=== PATIENT | female | born 1935 | race Caucasian/White ===

== ENCOUNTER 2021-04-22 12:27 | Inpatient (IN) | payer OTHER ==
--- NOTE | 2021-04-22 13:33 | RAD REPORT ---
EXAM DESCRIPTION: RAD - Chest Single View - 04/22/2021 1:26 pm CLINICAL HISTORY: DYSPNEA COMPARISON: November 06 TECHNIQUE: AP portable chest image was obtained 04/22/2021 1:26 pm . FINDINGS: Lung volumes are low compared to the prior study. This accentuates a baseline prominent in terstitial pattern. No peripheral mass or consolidation suspected. No significant failure or volume o verload. Heart and vasculature are normal. No measurable pleural effusion and no pneumothorax. No acute bony abnormality seen. No acute aortic findings suspected. IMPRESSION: No acute cardiopulmonary process. Shallow inspiration exam accentuates the baseline interstitial pattern.
[2021-04-22 13:54] LABS: Protime INR 0.98
[2021-04-22 13:55] LABS: Absolute Lymphocytes (CBC) 0.8 K/uL (0.7-4.9); Basophils % 0.4 % (0-1.3); Lymphocytes % 8.6 % (15.3-44.8); MPV 7.3 fL (7.6-11.3); RBC Red Blood Cell Count 3.24 M/uL (3.86-4.86)
[2021-04-22 13:59] LABS: ALT/SGPT 19 U/L (12-78); AST/SGOT 18 U/L (15-37); Albumin 3.5 g/dL (3.4-5.0); Alkaline Phosphatase 73 U/L (45-117); BUN Blood Urea Nitrogen 14 mg/dL (7-18); Bicarbonate 27 mmol/L (21-32); Bilirubin Direct 0.2 mg/dL (0-0.2); Bilirubin Total 0.6 mg/dL (0.2-1.0); Glucose Level 118 mg/dL (74-106); NT PRO-BNP 328 pg/mL (<450); Potassium 3.7 mmol/L (3.5-5.1); Protein, Total 8.1 g/dL (6.4-8.2); Sodium Level 137 mmol/L (136-145); Troponin (Emerg Dept Use Only) < 0.02 ng/mL (0.0-0.045)
[2021-04-22] MEDS ORDERED: NA CHLORIDE 0.9% 500 ML ONE (15:08)
[2021-04-22] MEDS ORDERED: METHYLPREDNISOLONE 125 MG INJ ONE (15:27)
[2021-04-22] MEDS ORDERED: DIPHENHYDRAMINE 50 MG/ML VIAL ONE (15:28)
--- NOTE | 2021-04-22 16:03 | RAD REPORT ---
EXAM DESCRIPTION: CT - Chest For Pe Angio - 04/22/2021 3:39 pm CLINICAL HISTORY: Chest pain COMPARISON: November 2020 TECHNIQUE: Dynamically enhanced axial 3 mm thick images of the chest were obtained during administra tion of <100> mL Isovue 370 IV contrast. Coronal and oblique reconstruction images were generated and reviewed. Exam utilizes a protocol for optimal evaluation of pulmonary arterial tree. Maximum intensity projections 3D imaging was utilized All CT scans are performed using dose optimization technique as appropriate and may include automated exposure control or mA/KV adjustment according to patient size. FINDINGS: A pulmonary embolus is not seen. A thoracic aortic aneurysm is not noted. A pleural effusion is not seen. A pericardial effusion is not seen. 4 centimeter consolidation posterior left upper lobe. Mild left lower lobe alveolar opacities. Stable 18 millimeter ground-glass opacity. IMPRESSION: Negative for a pulmonary embolism. 4 centimeter consolidation left upper lobe with mild left lower lobe opacities probably pneumonia. Stable 18 millimeter ground-glass opacity left upper lobe probably inflammatory. Followup CT in 6 mon ths recommended for re-evaluation
--- NOTE | 2021-04-22 17:30 | ER ---
Nurse's Notes [facility] Name: Meenakshi Michele Age: 85 yrs Sex: Female : 1935 Arrival Date: 04/22/2021 Time: 12:30 Bed 9 Private MD: Florian Veloz C Diagnosis: Unspecified bacterial pneumonia;Hypoxia Presentation: 04/22 12:44 Chief complaint: Patient states: Sent by Dr. Veloz. Pt states "my left side has been aa5 hurting since last night when I try to take a deep breath". Pt denies cough, denies SOB. Coronavirus screen: At this time, the client does not indicate any symptoms associated with coronavirus-19. Ebola Screen: Patient negative for fever greater than or equal to 101.5 degrees Fahrenheit, and additional compatible Ebola Virus Disease symptoms. Initial Sepsis Screen: Does the patient meet any 2 criteria? No. Patient's initial sepsis screen is negative. Does the patient have a suspected source of infection? No. Patient's initial sepsis screen is negative. Risk Assessment: Do you want to hurt yourself or someone else? Patient reports no desire to harm self or others. Onset of symptoms was April 2021. 12:44 Method Of Arrival: Wheelchair aa5 12:44 Acuity: PONCHO 3 aa5 Triage Assessment: 19:30 General: Appears in no apparent distress. comfortable, well groomed, well developed. dc2 19:30 General: Behavior is calm, quiet. dc2 21:15 Pain: Denies pain. dc2 Historical: - Allergies: 12:46 Erythromycin; aa5 12:46 Iodine (Anaphylaxis); aa5 - PMHx: 12:46 Chron's Disease; aa5 - PSHx: 12:46 Cholecystectomy; Tubal ligation; Tonsillectomy; Adenoid excision; aa5 - Immunization history:: Client reports receiving the 2nd dose of the Covid vaccine. - Social history:: Smoking status: Patient reports the use of cigarette tobacco products, 4 cigarettes a day. Screenin:09 Abuse screen: Denies threats or abuse. Denies injuries from another. Nutritional es2 screening: No deficits noted. Tuberculosis screening: No symptoms or risk factors identified. Fall Risk None identified. Assessment: 18:08 Reassessment: When ambulating down [place] to bathroom, O2 Sats dropped to 88% on RA and ch5 HR increased to 116 b/m. Provider notified.. 19:30 Reassessment: Pt sitting up in bed with female visitor at side. Pt AAOx4, denies pain dc2 while resting, states has some discomfort when taking deep breaths. VSS. Awaiting on covid test results for admission. Some belongings placed in bag, pt request to stay in home gown until she knows more about her admission. Call light within reach, continue to monitor. Right inner forearm #22 flushed without problem. 21:09 Reassessment: Registration called for FLip room. Pt going to 209. dc2 Vital Signs: 12:44 BP 159 / 61; Pulse 84; Resp 16 S; Temp 98.0(TE); Pulse Ox 94% on R/A; Weight 82.1 kg aa5 (R); Height 5 ft. 4 in. (162.56 cm) (R); 17:08 BP 138 / 70; Pulse 74; Resp 16; Pulse Ox 95% on R/A; es2 18:08 BP 115 / 92; Pulse 98; Resp 20; Pulse Ox 93% on R/A; ch5 19:30 BP 153 / 71; Pulse 92; Resp 18; Temp 98.5; Pulse Ox 94% on R/A; Pain 0/10; dc2 21:10 BP 145 / 60; Pulse 93; Resp 20; Temp 97.8; Pulse Ox 95% on R/A; cc4 12:44 Body Mass Index 31.07 (82.10 kg, 162.56 cm) aa5 ED Course: 12:30 Patient arrived in ED. as 12:30 Florian Veloz MD is Private Physician. as 12:44 Arm band placed on. aa5 12:46 Triage completed. aa5 13:06 Segun Forbes PA is PHCP. jr8 13:06 Coleman Zapata MD is Attending Physician. jr8 13:11 Bhanu Coello, ALKA is Primary Nurse. ch5 13:25 XRAY Chest (1 view) In Process Unspecified. EDMS 15:30 No provider procedures requiring assistance completed. Inserted saline lock: 22 gauge es2 in right forearm, using aseptic technique. 15:39 CT Chest For PE Angio In Process Unspecified. EDMS 17:09 Bed in low position. Call light in reach. Side rails up X2. es2 17:30 Florian Veloz MD is Referral Physician. jr8 18:09 Florian Veloz MD is Hospitalizing Provider. jr8 20:04 Primary Nurse role handed off by Bhanu Coello RN tt3 20:14 Florecita Garrison RN is Primary Nurse. dc2 21:16 IV Flushed Converted IV to saline lock on right forearm dc2 Administered Medications: 15:15 Drug: Benadryl (diphenhydrAMINE) 25 mg Route: IVP; Site: right forearm; ch5 19:10 Follow up: Response: No adverse reaction dc2 15:16 Drug: NS 0.9% 500 ml Route: IV; Rate: bolus; Site: right forearm; ch5 21:29 Follow up: IV Status: Completed infusion; IV Intake: 500ml dc2 15:16 Drug: SOLU-Medrol (methylPrednisoLONE) 125 mg Route: IVP; Site: right forearm; ch5 19:10 Follow up: Response: No adverse reaction dc2 20:22 Drug: levofloxacin 500 mg Volume: 100 ml; Route: IVPB; Rate: 100 ml/hr; Infused Over: dc2 60 mins; Site: right forearm; Delivery: Primary tubing; 21:22 Follow up: IV Status: Completed infusion; IV Intake: 100ml dc2 Intake: 21:22 IV: 100ml; Total: 100ml. dc2 21:29 IV: 500ml; Total: 600ml. dc2 Outcome: 17:30 Discharge ordered by . jr8 18:11 Decision to Hospitalize by Provider. jr8 21:15 Admitted to Med/surg accompanied by tech, via stretcher, room 209, Report called to dc2 Day, states [facility] is taking the patient is unavailable and will call back for report. 21:17 Condition: stable dc2 21:17 Instructed on the need for admit, Demonstrated understanding of 21:28 Admitted to Tele accompanied by tech, room 209, Report called to ALKA Robles dc2 21:29 Patient left the ED. dc2 Signatures: Dispatcher [employer] EDAZ Yoana Kraft Audri, RN RN aa5 Segun Forbes PA PA jr8 Jay Trammell tt3 Bhanu Coello RN RN ch5 Keturah Mcghee RN RN cc4 Florecita Garrison, RN RN dc2 Louise Vergara RN RN es2 Corrections: (The following items were deleted from the chart) 15:16 14:47 NS 0.9% 500 ml IV at bolus in left antecubital ch5 ch5
--- NOTE | 2021-04-22 17:30 | EDPHYS ---
Physician Documentation [facility] Name: Meenakshi Michele Age: 85 yrs Sex: Female : 1935 Arrival Date: 04/22/2021 Time: 12:30 Bed 9 Private MD: Florian Veloz C ED Physician Coleman Zapata HPI: 04/22 15:50 This 85 yrs old Female presents to ER via Wheelchair with complaints of sent jr8 by Veloz r/o clot. 15:50 Onset: The symptoms/episode began/occurred acutely, last night. Associated signs and jr8 symptoms: Pertinent positives: chest pain, shortness of breath. Modifying factors: The patient symptoms are alleviated by nothing, the patient symptoms are aggravated by nothing. The patient has not experienced similar symptoms in the past. The patient has been recently seen by a physician:. Patient stated that she started to have left sided chest pain with breathing that started last night. Denies trauma. Denies having similar problems in the past including recent infection . Historical: - Allergies: 12:46 Erythromycin; aa5 12:46 Iodine (Anaphylaxis); aa5 - PMHx: 12:46 Chron's Disease; aa5 - PSHx: 12:46 Cholecystectomy; Tubal ligation; Tonsillectomy; Adenoid excision; aa5 - Immunization history:: Client reports receiving the 2nd dose of the Covid vaccine. - Social history:: Smoking status: Patient reports the use of cigarette tobacco products, 4 cigarettes a day. ROS: 15:50 Eyes: Negative for injury, pain, redness, and discharge, ENT: Negative for injury, jr8 pain, and discharge, Neck: Negative for injury, pain, and swelling, Abdomen/GI: Negative for abdominal pain, nausea, vomiting, diarrhea, and constipation, Back: Negative for injury and pain, MS/Extremity: Negative for injury and deformity, Skin: Negative for injury, rash, and discoloration, Neuro: Negative for headache, weakness, numbness, tingling, and seizure. 15:50 Cardiovascular: Positive for chest pain, Negative for edema, orthopnea, palpitations, paroxysmal nocturnal dyspnea. 15:50 Respiratory: Positive for shortness of breath. Exam: 15:50 Eyes: Pupils equal round and reactive to light, extra-ocular motions intact. Lids and jr8 lashes normal. Conjunctiva and sclera are non-icteric and not injected. Cornea within normal limits. Periorbital areas with no swelling, redness, or edema. ENT: Nares patent. No nasal discharge, no septal abnormalities noted. Tympanic membranes are normal and external auditory canals are clear. Oropharynx with no redness, swelling, or masses, exudates, or evidence of obstruction, uvula midline. Mucous membranes moist. Neck: Trachea midline, no thyromegaly or masses palpated, and no cervical lymphadenopathy. Supple, full range of motion without nuchal rigidity, or vertebral point tenderness. No Meningismus. Cardiovascular: Regular rate and rhythm with a normal S1 and S2. No gallops, murmurs, or rubs. Normal PMI, no JVD. No pulse deficits. Respiratory: Lungs have equal breath sounds bilaterally, clear to auscultation and percussion. No rales, rhonchi or wheezes noted. No increased work of breathing, no retractions or nasal flaring. Abdomen/GI: Soft, non-tender, with normal bowel sounds. No distension or tympany. No guarding or rebound. No evidence of tenderness throughout. Back: No spinal tenderness. No costovertebral tenderness. Full range of motion. Skin: Warm, dry with normal turgor. Normal color with no rashes, no lesions, and no evidence of cellulitis. MS/ Extremity: Pulses equal, no cyanosis. Neurovascular intact. Full, normal range of motion. Neuro: Awake and alert, GCS 15, oriented to person, place, time, and situation. Cranial nerves II-XII grossly intact. Motor strength 5/5 in all extremities. Sensory grossly intact. Vital Signs: 12:44 BP 159 / 61; Pulse 84; Resp 16 S; Temp 98.0(TE); Pulse Ox 94% on R/A; Weight 82.1 kg aa5 (R); Height 5 ft. 4 in. (162.56 cm) (R); 17:08 BP 138 / 70; Pulse 74; Resp 16; Pulse Ox 95% on R/A; es2 18:08 BP 115 / 92; Pulse 98; Resp 20; Pulse Ox 93% on R/A; ch5 19:30 BP 153 / 71; Pulse 92; Resp 18; Temp 98.5; Pulse Ox 94% on R/A; Pain 0/10; dc2 21:10 BP 145 / 60; Pulse 93; Resp 20; Temp 97.8; Pulse Ox 95% on R/A; cc4 12:44 Body Mass Index 31.07 (82.10 kg, 162.56 cm) aa5 MDM: 13:07 Patient medically screened. [facility] 17:27 Data reviewed: vital signs, nurses notes, lab test result(s), radiologic studies, CT jr8 scan, plain films. Data interpreted: Pulse oximetry: on room air is 95 %. Interpretation: normal. Counseling: I had a detailed discussion with the patient and/or guardian regarding: the historical points, exam findings, and any diagnostic results supporting the discharge/admit diagnosis, lab results, radiology results, the need for outpatient follow up, a family practitioner, to return to the emergency department if symptoms worsen or persist or if there are any questions or concerns that arise at home. ED course: Case with Dr. Veloz. And at rest 95% but with ambulation dropped to 88% room air. With increased work of breathing. Will put patient in for inpatient admission for pneumonia and hypoxia. Dr. Veloz good with this.. 04/22 13:06 Order name: Basic Metabolic Panel; Complete Time: 14:06 04/22 13:06 Order name: CBC with Diff; Complete Time: 18:03 04/22 13:06 Order name: LFT's; Complete Time: 14:06 04/22 13:06 Order name: Magnesium; Complete Time: 14:06 04/22 13:06 Order name: NT PRO-BNP; Complete Time: 14:06 04/22 13:06 Order name: PT-INR; Complete Time: 14:06 04/22 13:06 Order name: Troponin (emerg Dept Use Only); Complete Time: 14:06 04/22 13:06 Order name: XRAY Chest (1 view); Complete Time: 13:38 04/22 13:06 Order name: DD; Complete Time: 14:06 04/22 14:06 Order name: CT Chest For PE Angio; Complete Time: 16:16 04/22 17:47 Order name: CBC Smear Scan; Complete Time: 18:03 EDFL 04/22 19:02 Order name: SARS-COV-2 RT PCR; Complete Time: 20:18 EDMS 04/22 13:06 Order name: EKG; Complete Time: 13:07 [facility] 04/22 13:06 Order name: Cardiac monitoring [facility] 04/22 13:06 Order name: EKG - Nurse/Tech; Complete Time: 14:16 8 04/22 13:06 Order name: IV Saline Lock; Complete Time: 14:16 8 04/22 13:06 Order name: Labs collected and sent; Complete Time: 14:16 8 04/22 13:06 Order name: O2 Per Protocol; Complete Time: 14:15 8 04/22 13:06 Order name: O2 Sat Monitoring; Complete Time: 14:15 jr Administered Medications: 15:15 Drug: Benadryl (diphenhydrAMINE) 25 mg Route: IVP; Site: right forearm; ch5 19:10 Follow up: Response: No adverse reaction dc2 15:16 Drug: NS 0.9% 500 ml Route: IV; Rate: bolus; Site: right forearm; ch5 21:29 Follow up: IV Status: Completed infusion; IV Intake: 500ml dc2 15:16 Drug: SOLU-Medrol (methylPrednisoLONE) 125 mg Route: IVP; Site: right forearm; ch5 19:10 Follow up: Response: No adverse reaction dc2 20:22 Drug: levofloxacin 500 mg Volume: 100 ml; Route: IVPB; Rate: 100 ml/hr; Infused Over: dc2 60 mins; Site: right forearm; Delivery: Primary tubing; 21:22 Follow up: IV Status: Completed infusion; IV Intake: 100ml dc2 Disposition: 04/23 08:51 Co-signature as Attending Physician, Coleman Zapata MD I agree with the assessment and kdr plan of care. Disposition Summary: 04/22/21 18:11 Hospitalization Ordered Hospitalization Status: Inpatient Admission [facility] Provider: Florian Veloz Location: Telemetry/MedSurg (Inpatient)(04/22/21 18:11) jr8 Condition: Stable(04/22/21 18:11) jr8 Problem: new(04/22/21 18:11) jr8 Symptoms: are unchanged(04/22/21 18:11) jr8 Bed/Room Type: Standard [facility] Room Assignment: 209(04/22/21 21:00) Diagnosis - Unspecified bacterial pneumonia(04/22/21 18:11) jr8 - Hypoxia jr8 Forms: - Medication Reconciliation Form jr8 - SBAR form jr8 Signatures: Dispatcher [employer] EDFL Paty Cassidy RN RN Colemna Lam MD MD [facility] Veronica Lind RN RN aa5 Segun Forbes PA PA jr8 Bhanu Coello RN RN ch5 Florecita Garrison RN RN dc2 Corrections: (The following items were deleted from the chart) 04/22 18:09 17:30 Home jr8 jr8 18:09 17:30 new jr8 jr8 18:09 17:30 have improved jr8 jr8 18:09 17:30 Stable jr8 jr8 18:09 17:30 Unspecified bacterial pneumonia jr8 jr8 18:09 17:30 Pleurisy jr8 jr8 18:11 17:27 ED course: Case with Dr. Veloz. At this time wants me to put her on Augmentin 875 jr8 mg twice daily for the next 10 days. We will have her follow-up with him in clinic next week. Knows to come back if she were to worsening point time.. jr8 19:02 18:15 CORONAVIRUS+MR.LAB.BRZ ordered. EDFL EDMS 21:00 18:11 jr8
[2021-04-22 17:47] LABS: Platelet Estimate ADEQ; White Blood Cell Scan OK (OK)
[2021-04-22 17:48] LABS: Blood Morphology Comment NOTED (NOT SEEN); Poikilocytosis 1+
[2021-04-22] MEDS ORDERED: Levofloxacin500mg IV 500 MG/100 ML BAG IV ONE (20:46)
[2021-04-22] MEDS ORDERED: ALBUTEROL 2.5 MG/3 ML NEB SOL NEB PRN (21:24)
[2021-04-22] MEDS ORDERED: ONDANSETRON 4 MG/2 ML VIAL IV PRN (21:24)
[2021-04-22] MEDS ORDERED: IPRATROPIUM BROM 0.5MG/2.5ML NEB PRN (21:24)
[2021-04-22] MEDS ORDERED: ACETAMINOPHEN 500 MG TAB PO PRN (21:24)
[2021-04-22] MEDS ORDERED: ZOLPIDEM TARTRATE 5 MG TABLET PO PRN (21:43)
[2021-04-22] MEDS ORDERED: ENOXAPARIN 40 MG/0.4 ML SQ ONE (21:49)
[2021-04-22] MEDS: ROPINIROLE HCL 0.25 MG TAB PO SCH (22:00)
[2021-04-22] MEDS: FAMOTIDINE 20 MG TAB PO SCH (22:00)
[2021-04-22] MEDS: clonazePAM 0.5 MG TAB PO SCH (22:44)
[2021-04-22] MEDS: GABAPENTIN 300 MG CAP PO SCH (22:45)
[2021-04-23 06:03] LABS: Absolute Lymphocytes (CBC) 0.6 K/uL (0.7-4.9); Basophils % 0.1 % (0-1.3); Hematocrit 30.9 % (36.0-45.0); Lymphocytes % 8.2 % (15.3-44.8); MPV 6.9 fL (7.6-11.3); RBC Red Blood Cell Count 2.95 M/uL (3.86-4.86)
[2021-04-23 06:21] LABS: Potassium 3.7 mmol/L (3.5-5.1)
--- NOTE | 2021-04-23 07:16 | EKG ---
Test Date: 2021-04-22 Test Time: 13:45:00 Operations Officer: [place] MEASUREMENT RESULTS: Intervals: Rate: 85 WI: 194 QRSD: 88 QT: 368 QTc: 437 Brule: P: 58 WI: 194 QRS: -20 T: 51 INTERPRETIVE STATEMENTS: Normal sinus rhythm Normal ECG Compared to ECG 09/11/2006 18:40:26 No significant changes Electronically Signed On 04-23-21 07:15:14 CDT by Gustavo Pretty
--- NOTE | 2021-04-23 07:58 | HP ---
Date of Admission: 04/22/2021 Chief Complaint: Chest pain. History Of Present Illness: Ms. Michele is an 85-year-old very pleasant female patient, who came into office with her friend complaining of left-sided pleuritic type of chest pain. The patient reported that as of last night she started to have this pain, which is intermittent, located in the left infrascapular region and only time she notices this pain is when she takes deep breath. Denies any fall injury. No rash. No fever, chills. No cough, congestion, expectoration. No hemoptysis. No radiation of pain. After she was evaluated, she was asked to go to emergency room as I was concerned about possibility of either pulmonary embolism or pneumonia. After she was evaluated in ER, she was diagnosed as having pneumonia. There was no evidence of pulmonary embolism, and the patient had normal room air oxygen saturation around 95% or so, and plan was to discharge her to go home with outpatient antibiotic therapy, but with ambulation in emergency room, her oxygen saturation dropped down into low to mid 80s and the patient did not feel good at all at that time and I was contacted requesting admission to the hospital. Medications: Clonazepam 0.5 mg takes half tablet by mouth in the morning and at bedtime, estradiol 0.5 mg daily, famotidine 40 mg daily at bedtime, folic acid 1 mg daily, gabapentin 300 mg daily at bedtime, Lialda 4 tablets by mouth daily, methotrexate 2.5 mg, mirtazapine 45 mg daily at bedtime, pramipexole 1.5 mg 2 times a day, ropinirole 0.5 mg at bedtime, [place] Thyroid 60 mg daily, and zolpidem 5 mg takes half to 1 tablet daily at bedtime as needed. Allergies: TO CODEINE CAUSING FAINTING TYPE OF FEELING, ERYTHROMYCIN CAUSED HEPATITIS TYPE OF PROBLEM AND SHE WAS LISTED ALLERGIC TO IODINE AND SAYS MANY YEARS AGO SHE HAD SOME TESTING DONE WITH IODINE AND IT CAUSED THROAT SWELLING, BUT TODAY THE PATIENT HAD CT SCAN OF THE CHEST PER PE PROTOCOL AND SHE DID NOT HAVE ANY REACTION, SO WE SHOULD NOT LIST HER ALLERGIC TO IODINE ANYMORE. Review of Systems: Respiratory: As mentioned above. Cardiovascular: As mentioned above. All other systems reviewed and negative. Past Medical History: Restless leg syndrome, hypothyroidism, impaired fasting glucose, hypertension, mixed hyperlipidemia, diverticulosis, Crohn disease, gastroesophageal reflux disease, leg edema, iron deficiency anemia, insomnia, osteopenia. Past Surgical History: Significant for appendectomy, tonsillectomy, cataract surgery, correction of ptosis on both sides, cholecystectomy, tubal ligation, hysterectomy. Family History: Parents and both of them had coronary artery disease. Sister with allergy problems. Son has multiple sclerosis. Social History: Positive for smoking. Use of alcohol, occasional. Immunization History: The patient's first dose of COVID-19 vaccine was August 03, 2020 and second dose September 11, 2020. Physical Examination: Vital Signs: Blood pressure 145/68, pulse 81, respiratory rate 15, temperature 98.9, weight 181.2 pounds, height 64 inches. General: Awake, alert, oriented, not in distress. HEENT: Head atraumatic, normocephalic. Conjunctivae nonerythematous. Sclerae white. Mouth, no thrush or edema noted. Ears/Nose, no mass, lesion, discharge noted. Neck: Supple. No JVD, lymph nodes, bruit, thyromegaly noted. Lungs: Presence of crackles noted in both lung chaidez and lower 1/4 region. Heart: Normal heart sounds, no murmur or gallop. Abdomen: Soft, bowel sounds normal. No guarding, rigidity, tenderness, mass, hepatosplenomegaly, distention, or bruit noted. Extremities: No leg edema. No calf tenderness. Skin: No rash, ulcer, cellulitis. Lymphatics: No lymph node enlargement in neck, supraclavicular, infraclavicular region. Neuro: No focal neurological deficit. Chest: Unremarkable. External Genitalia: Deferred. Rectal: Deferred. Laboratory Data: White count 9.1, hemoglobin 11.4, platelets 271. D-dimer 553. Sodium 137, potassium 3.7, chloride 105, bicarb 27, BUN 14, creatinine 0.76, glucose 118. Liver function tests unremarkable. COVID-19 test negative. Chest x-ray, no acute cardiopulmonary changes. CAT scan of the chest per PE protocol, no evidence of pulmonary embolism, but presence of left upper lobe consolidation. Impression: 1. Pneumonia. 2. Acute respiratory failure with hypoxia. 3. Iron deficiency anemia. 4. Hypertension. 5. Pleurisy secondary to pneumonia. 6. Restless leg syndrome. 7. Hypothyroidism. 8. Impaired fasting glucose. 9. Mixed hyperlipidemia. 10. Gastroesophageal reflux disease. 11. Crohn disease. 12. Diverticulosis. 13. Insomnia. Plan: The patient will be admitted to hospital for further evaluation and management of this problem. The patient is appropriate for inpatient and is expected to spend 2 midnights in hospital. We will go ahead and continue home medications per order, start antibiotics per order. We will continue oxygen replacement therapy. We will see her tomorrow for followup. DVT prophylaxis will be given using Lovenox and we will give symptomatic treatment for pleuritic chest pain if needed, but it is expected to improve as pneumonia improves. Details of plan of treatment discussed with the patient. I will see her tomorrow for followup. LIYA/SIMONA Voice ID: [id number] MTDD
[2021-04-23] MEDS ORDERED: Levofloxacin 750mg IV 750 MG/150 ML BAG IV SCH (08:00)
[2021-04-23] MEDS: clonazePAM 0.5 MG TAB PO SCH ×2 (08:02→20:10)
[2021-04-23] MEDS: PRAMIPEXOLE 1 MG TAB PO SCH ×3 (08:02→20:09)
[2021-04-23] MEDS ORDERED: clonazePAM 0.5 MG TAB PO SCH (09:00)
[2021-04-23] MEDS: THYROID 30 MG TAB PO SCH (10:51)
[2021-04-23] MEDS ORDERED: ENOXAPARIN 40 MG/0.4 ML SQ SCH (17:00)
[2021-04-23] MEDS: FAMOTIDINE 20 MG TAB PO SCH (20:08)
[2021-04-23] MEDS: GABAPENTIN 300 MG CAP PO SCH (20:09)
[2021-04-23] MEDS: ROPINIROLE HCL 0.25 MG TAB PO SCH (20:13)
[2021-04-24] MEDS: THYROID 30 MG TAB PO SCH (05:05)
[2021-04-24 05:19] VITALS: BMI 31.5
[2021-04-24 08:08] VITALS: BP 145/71; TEMP 98
[2021-04-24 08:52] VITALS: O2SAT 93
--- NOTE | 2021-04-24 08:59 | PN ---
Date of Progress Note: 04/23/2021 Subjective: The patient was seen this morning for followup. She is feeling overall better. Her pleuritic chest pain is better compared to yesterday. No new complaints or problems reported. Objective: Vital Signs: Reviewed. HEENT: Examination unremarkable. Lungs: Bilateral good equal air entry. Presence of basal rales better than yesterday, not in any respiratory distress. Heart: Sounds normal. Abdomen: Soft. Bowel sounds normal. No guarding, rigidity, tenderness, or distention. Extremities: No leg edema. Laboratory Data: White count 7.7, hemoglobin 10.5, platelets 276. Sodium 138, potassium 3.7, chloride 106, bicarb 26, BUN 18, creatinine 0.82, glucose 195. Impression: 1. Pneumonia. 2. Pleurisy. 3. Anemia. 4. Restless leg syndrome. Plan: We will go ahead and continue current antibiotic. Continue DVT prophylaxis. We will ambulate the patient today as tolerated. I will see her tomorrow and depending on the condition, we will decide if it is possible to discharge home tomorrow or not. The patient's son called office and wanted some updates and details were discussed with him as well. LIYA/SIMONA Voice ID: [id number] Report ID: [id number] RYLIE
--- NOTE | 2021-04-24 20:20 | DS ---
Date of Discharge: 04/24/2021 Disposition: Discharged to go home. Physical Examination: HEENT: Unremarkable. Lungs: Clear to auscultation. Heart: Sounds normal. Abdomen: Soft. Bowel sounds normal. No guarding, rigidity, tenderness, or distention. Extremities: No leg edema. Laboratory Data: Upon admission; white count was 9.1, hemoglobin was 11.4, platelets 271. Repeat wh ite count yesterday was 7.7, hemoglobin was 10.5, and platelet count 276. Chemistry upon admission; sodium 137, potassium 3.7, chloride 105, bicarb 27, BUN 14, creatinine 0.76, glucose 118. Liver func tion tests unremarkable. Hemoglobin A1c 5.3 done yesterday and yesterday's glucose was 195. Hospital Course: This is an 85-year-old pleasant female patient, admitted to the hospital with pleur itic chest pain. Please see dictated H and P for more information. The patient came into office wit h this pleuritic chest pain and she was asked to go to the emergency room for further evaluation. Fu rther evaluation including chest x-ray and CAT scan of the chest per PE protocol done in emergency ro om were negative for pulmonary embolism, but it did show evidence of pneumonia. The patient became h ypoxic with ambulation in emergency room, so she was admitted to the hospital. After her admission t o the hospital, she was started on antibiotic and her hypoxia resolved with ambulation. She did not have any trouble with hypoxia. She is feeling much better. Her pleuritic chest pain has almost comp letely resolved. The patient was discharged to go home in stable condition. Final Diagnoses: 1.Pneumonia. 2.Acute respiratory failure with hypoxia. 3.Pleurisy. 4.Iron deficiency anemia. 5.Hypertension. 6.Restless leg syndrome. 7.Hypothyroidism. 8.Impaired fasting glucose. 9.Mixed hyperlipidemia. 10.Gastroesophageal reflux disease. 11.Crohn disease. 12.Diverticulosis. 13.Insomnia. Discharge Medications And Instructions: 1.Continue all prior home medications. 2.Take antibiotic, Levaquin 500 mg daily for 1 week and prescription was sent to her pharmacy. 3.Follow up at my office next week on Thursday which is 04/29/2021 at 10 a.m. LIYA/MODL Voice ID: [id number] Report ID: [id number]
[2021-04-25] MEDS ORDERED: levoFLOXacin 750 MG TAB PO SCH (09:00)
== END 2021-04-24 09:23 | disposition home or self-care (01) | DRG 193 ==
LOC: ER 12:27 → ERHOLD 19:37 → 2ND 21:10
PROVIDERS: ADMIT Internal Medicine; ATTEND Internal Medicine
DX: J18.9 Pneumonia, unspecified organism (principal); J96.01 Acute respiratory failure with hypoxia; K50.90 Crohn's disease, unspecified, without complications; D50.9 Iron deficiency anemia, unspecified; I10 Essential (primary) hypertension; G25.81 Restless legs syndrome; E03.9 Hypothyroidism, unspecified; R73.01 Impaired fasting glucose; E78.2 Mixed hyperlipidemia; K21.9 Gastro-esophageal reflux disease without esophagitis; K57.90 Diverticulosis of intestine, part unspecified, without perforation or abscess without bleeding; G47.00 Insomnia, unspecified; Z20.822 Contact with and (suspected) exposure to COVID-19
CPT/HCPCS: 36415; 71045; 71275; 80048; 80076; 83036; 83735; 83880; 84484; 85025; 85379; 85610; 93005; 94760; 96361; 96365; 96375; 97161; 99285; J1200; J1650; J2930; J7040; Q9967; U0003

== ENCOUNTER 2021-05-02 19:16 | Observation (INO) | payer OTHER ==
[2021-05-02 19:27] LABS: Urine Blood Negative (Negative); Urine Glucose Negative (Negative); Urine Protein Negative (Negative); Urine Specific Gravity 1.025 (1.005-1.030); Urine pH 6.5 (5.0-7.0)
[2021-05-02] MEDS ORDERED: MAGNES/ALUMIN/SIMET 30ML UCUP ONE (19:58)
[2021-05-02] MEDS ORDERED: LIDOCAINE VISCOUS 2% SOLN 15 ML UDC ONE (19:58)
--- NOTE | 2021-05-02 20:06 | RAD REPORT ---
EXAM DESCRIPTION: CTChest Abd Pelvis Wo Con - 05/02/2021 7:50 pm CLINICAL HISTORY: abd pain, recent pneumonia COMPARISON: Chest For Pe Angio dated 04/22/2021; Thorax Wo Con dated 11/20/2020 TECHNIQUE: CT of the chest, abdomen, and pelvis was performed. All CT scans are performed using dose optimization technique as appropriate and may include automated exposure control or mA/KV adjustment according to patient size. FINDINGS: Thorax: Chest Wall: No abnormal mass Lungs: Improved aeration of left upper lung with near resolution of the consolidative process noted o n the prior CT. Nineteen grant ground-glass opacity anteriorly in the left upper lobe is similar. Pleura: No effusions or pneumothorax. Ayanna/Mediastinum: No lymphadenopathy. Aorta/Pulmonary Arteries: Unremarkable Heart: Normal size. Coronary artery calcifications. Mitral annular calcifications. Abdomen/Pelvis: Liver: No acute abnormality or suspicious lesions. Biliary: Cholecystectomy Stomach: Distended stomach which is otherwise unremarkable. Duodenum: No significant focal abnormality. Pancreas: No significant abnormality. Spleen: No significant abnormality. Adrenal: No suspicious lesions. Kidney/ureter: No hydronephrosis. No renal calculi. Insert kidneys Retroperitoneum: No retroperitoneal adenopathy. Vascular: No aneurysm. Bowel: Irregular colonic wall thickening at the splenic flexure with some prominent mesenteric lymph nodes. No bowel obstruction. Moderate colonic stool.. Peritoneum: No ascites or free air. Bladder: Grossly unremarkable. Reproductive: No adnexal masses. Hysterectomy Bones: No acute fracture. 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 Other: n/a IMPRESSION: 1. Irregular colonic wall thickening at the splenic flexure could represent a short-segm ent colitis however it could also represent an underlying colonic neoplasm. Recommend short-term foll ow-up colonoscopy depending on the clinical suspicion. 2. Improved aeration of the dominant left upper lobe consolidative opacity. There is still a wedge-sh aped ground-glass opacity in the anterior aspect of the left upper lobe that is unchanged and for whi ch a 12 month follow-up chest CT is recommended.
[2021-05-02 20:31] LABS: ALT/SGPT 62 U/L (12-78); AST/SGOT 138 U/L (15-37); Albumin 3.2 g/dL (3.4-5.0); Alkaline Phosphatase 145 U/L (45-117); BUN Blood Urea Nitrogen 21 mg/dL (7-18); Bicarbonate 29 mmol/L (21-32); Bilirubin Direct 0.1 mg/dL (0-0.2); Bilirubin Total 0.3 mg/dL (0.2-1.0); Glucose Level 128 mg/dL (74-106); Lipase 68 U/L (73-393); Potassium 3.8 mmol/L (3.5-5.1); Sodium Level 141 mmol/L (136-145); Troponin (Emerg Dept Use Only) < 0.02 ng/mL (0.0-0.045)
[2021-05-02 20:45] LABS: Absolute Lymphocytes (CBC) 1.5 K/uL (0.7-4.9); Basophils % 0.3 % (0-1.3); Hematocrit 33.4 % (36.0-45.0); Lymphocytes % 22.2 % (15.3-44.8); MPV 6.6 fL (7.6-11.3); RBC Red Blood Cell Count 3.22 M/uL (3.86-4.86)
--- NOTE | 2021-05-02 22:21 | ER ---
Nurse's Notes [facility] Name: Meenakshi Michele Age: 85 yrs Sex: Female : 1935 Arrival Date: 05/02/2021 Time: 19:18 Bed 18 Private MD: Diagnosis: Infectious gastroenteritis and colitis, unspecified;Abdominal pain, unspecified Presentation: 05/02 19:19 Chief complaint: Patient states: abdominal pain/ epigastric pain that radiates to kc4 bilateral sides. started after eating dinner. No N/V/ D noted. Hx Crohns disease. Coronavirus screen: Vaccine status: Patient reports receiving the 2nd dose of the covid vaccine. Patient reports receiving the 1st dose of the Covid vaccine. Ebola Screen: Patient negative for fever greater than or equal to 101.5 degrees Fahrenheit, and additional compatible Ebola Virus Disease symptoms Patient denies exposure to infectious person. Patient denies travel to an Ebola-affected area in the 21 days before illness onset. Initial Sepsis Screen: Does the patient meet any 2 criteria? No. Patient's initial sepsis screen is negative. Does the patient have a suspected source of infection? No. Patient's initial sepsis screen is negative. Risk Assessment: Do you want to hurt yourself or someone else? Patient reports no desire to harm self or others. Onset of symptoms was May 02, 2021 at 18:15. 19:19 Method Of Arrival: EMS [facility] 19:19 Acuity: PONCHO 3 kc4 Triage Assessment: 19:25 General: Appears in no apparent distress. obese, well groomed, Behavior is calm, kc4 cooperative, appropriate for age. Pain: Complains of pain in epigastric pain Pain radiates to bilateral ribs Pain currently is 2 out of 10 on a pain scale. at worst was 10 out of 10 on a pain scale. level that patient reports is acceptable is 0 out of 10 on a pain scale. Quality of pain is described as tightness Pain began suddenly, 2 hours ago. Is intermittent. EENT: No deficits noted. No signs and/or symptoms were reported regarding the EENT system. Neuro: No deficits noted. Cardiovascular: No deficits noted. Respiratory: No deficits noted. GI: No deficits noted. No signs and/or symptoms were reported involving the gastrointestinal system. : No deficits noted. No signs and/or symptoms were reported regarding the genitourinary system. Derm: No deficits noted. No signs and/or symptoms reported regarding the dermatologic system. Historical: - Allergies: 19:25 Erythromycin; kc4 19:25 Iodine (Anaphylaxis); kc4 - PMHx: 19:25 chron's disease; kc4 - PSHx: 19:25 Adenoid excision; Tonsillectomy; Cholecystectomy; tubal ligation; kc4 - Immunization history:: Adult Immunizations up to date, Last tetanus immunization: up to date Pneumococcal vaccine is up to date, Flu vaccine is up to date. - Social history:: Smoking status: Patient reports the use of cigarette tobacco products, denies chronic smoking, but will smoke occasionally. - Family history:: not pertinent. - Hospitalizations: : No recent hospitalization is reported. Screenin:33 Abuse screen: Denies threats or abuse. Denies injuries from another. Nutritional kc4 screening: No deficits noted. On no prescribed diet Difficulty chewing/swallowing? No. Tuberculosis screening: No symptoms or risk factors identified. Never had TB. Possible symptoms: None Risk factors: None. Fall Risk None identified. No fall in past 12 months (0 pts). No secondary diagnosis (0 pts). IV access (20 points). Ambulatory Aid- None/Bed Rest/Nurse Assist (0 pts). Gait- Normal/Bed Rest/Wheelchair (0 pts) Mental Status- Oriented to own ability (0 pts). Total Nicolas Fall Scale indicates No Risk (0-24 pts). Assessment: 20:12 Reassessment: No changes from previously documented assessment. Patient and/or family kc4 updated on plan of care and expected duration. Pain level reassessed. Patient is alert, oriented x 3, equal unlabored respirations, skin warm/dry/pink. Patient denies pain at this time. Patient states feeling better. Patient states symptoms have improved. Vital Signs: 19:19 BP 166 / 73; Pulse 88; Resp 20; Temp 98.8(O); Pulse Ox 100% on R/A; Weight 81.65 kg; kc4 Height 5 ft. 4 in. (162.56 cm); Pain 2/10; 20:14 BP 150 / 78; Pulse 80; Resp 20; Temp 98.8; Pulse Ox 98% on R/A; Pain 0/10; kc4 21:46 BP 123 / 64; Pulse 90; Resp 18; Temp 98.8(O); Pulse Ox 100% on R/A; Pain 0/10; kc4 23:02 BP 136 / 67; Pulse 92; Resp 16; Temp 98.0; Pulse Ox 100% on R/A; Pain 0/10; kc4 05/03 01:20 BP 143 / 72; Pulse 82; Resp 18; Temp 98.8(O); Pulse Ox 100% on R/A; kc4 05/02 19:19 Body Mass Index 30.90 (81.65 kg, 162.56 cm) kc4 ED Course: 05/02 19:18 Patient arrived in ED. rn 19:18 Ebenezer Leija MD is Attending Physician. rn 19:19 Loni Burton is Primary Nurse. kc4 19:20 No provider procedures requiring assistance completed. Inserted saline lock: 20 gauge kc4 in right antecubital area, using aseptic technique. 19:25 Triage completed. kc4 19:25 Arm band placed on right wrist. kc4 19:42 Basic Metabolic Panel Sent. kc4 19:42 Troponin (emerg Dept Use Only) Sent. kc4 19:42 Basic Metabolic Panel Sent. kc4 19:42 CBC with Diff Sent. kc4 19:42 Hepatic Function Sent. kc4 19:42 Lipase Sent. kc4 19:50 CT Chest Abdomen Pelvis W/O Contrast In Process Unspecified. EDMS 20:12 Troponin (emerg Dept Use Only) Sent. kc4 20:12 Basic Metabolic Panel Sent. kc4 20:12 CBC with Diff Sent. kc4 20:12 Hepatic Function Sent. kc4 20:12 Lipase Sent. kc4 21:45 Triage completed. kc4 22:20 Jadon Reddy MD is Hospitalizing Provider. rn 05/03 01:10 Florian Veloz MD is Hospitalizing Provider. rn 01:34 Patient has correct armband on for positive identification. Placed in gown. Bed in low kc4 position. Call light in reach. Side rails up X 1. Report given to barry RUCKER. 01:49 Patient admitted, IV remains in place. kc4 Administered Medications: 05/02 19:37 Drug: GI Cocktail without - (Maalox Suspension 30 ml, Lidocaine Liquid 2 % 15 vg1 ml) Route: PO; 20:12 Follow up: Response: No adverse reaction; Marked relief of symptoms kc4 22:54 Drug: Rocephin (cefTRIAXone) 1 grams Route: IV; Rate: calculated rate; Site: right 4 antecubital; 23:02 Follow up: Response: No adverse reaction kc4 05/03 01:21 Follow up: IV Status: Completed infusion kc4 05/02 22:54 Drug: Flagyl (metroNIDAZOLE) 500 mg Volume: 100 ml; Route: IVPB; Rate: 200 ml/hr; kc4 Infused Over: 30 mins; Site: right antecubital; 23:12 Follow up: IV Status: Completed infusion kc4 05/03 01:21 Follow up: IV Status: Completed infusion kc4 Output: 05/02 22:35 Urine: 275ml (Voided); Total: 275ml. kc4 05/03 00:30 Urine: 500ml (Voided); Total: 775ml. kc4 Outcome: 05/02 22:21 Decision to Hospitalize by Provider. rn 05/03 01:41 Condition: stable kc4 01:48 Admitted to Med/surg accompanied by tech, via wheelchair, room 428, with chart, Report kc4 called to Barry RN 01:48 Instructed on the need for admit. 01:50 Patient left the ED. kc4 Signatures: Dispatcher [employer] Ebenezer Layne MD MD rn Garcia, Victoria, RN RN vg1 Chuman, Kourtney kc4
--- NOTE | 2021-05-02 22:21 | EDPHYS ---
Physician Documentation [facility] Name: Meenakshi Michele Age: 85 yrs Sex: Female : 1935 Arrival Date: 05/02/2021 Time: 19:18 Bed 18 Private MD: ED Physician Ebenezer Leija HPI: 05/02 19:29 This 85 yrs old Female presents to ER via EMS with complaints of upper abd rn pain. 19:29 The patient presents with abdominal pain in the epigastric area, in the right upper rn quadrant, in the left upper quadrant. Onset: The symptoms/episode began/occurred 1 hour(s) ago. The symptoms do not radiate. Associated signs and symptoms: Pertinent negatives: nausea and vomiting, anorexia, blood in stools, chest pain, constipation, diarrhea, dysuria, fever, shortness of breath, vomiting, vomiting blood. The symptoms are described as tightness, "bandlike". Modifying factors: The symptoms are alleviated by nothing, the symptoms are aggravated by nothing. Severity of pain: At its worst the pain was moderate in the emergency department the pain has resolved. The patient has not experienced similar symptoms in the past. The patient has not recently seen a physician. Pt reports eating at halfway, while sitting at table felt bandlike sensation to upper abdomen, slowly improving on its own and now practically gone. Just finished abx for pneumonia with recent hospitalization, and also has Crohns' disease, but feels like this pain is different. Also reports intermittent acid reflux and heartburn. No fever. No trauma. [place] fine prior to episode. . Historical: - Allergies: 19:25 Erythromycin; kc4 19:25 Iodine (Anaphylaxis); kc4 - PMHx: 19:25 chron's disease; kc4 - PSHx: 19:25 Adenoid excision; Tonsillectomy; Cholecystectomy; tubal ligation; kc4 - Immunization history:: Adult Immunizations up to date, Last tetanus immunization: up to date Pneumococcal vaccine is up to date, Flu vaccine is up to date. - Social history:: Smoking status: Patient reports the use of cigarette tobacco products, denies chronic smoking, but will smoke occasionally. - Family history:: not pertinent. - Hospitalizations: : No recent hospitalization is reported. ROS: 19:29 Constitutional: Negative for fever, chills, and weight loss, Eyes: Negative for injury, rn pain, redness, and discharge, ENT: Negative for injury, pain, and discharge, Neck: Negative for injury, pain, and swelling, Cardiovascular: Negative for chest pain, palpitations, and edema, Respiratory: Negative for shortness of breath, cough, wheezing, and pleuritic chest pain, Abdomen/GI: Negative for nausea, vomiting, diarrhea, and constipation, Back: Negative for injury and pain, : Negative for injury, bleeding, discharge, and swelling, MS/Extremity: Negative for injury and deformity, Skin: Negative for injury, rash, and discoloration, Neuro: Negative for headache, weakness, numbness, tingling, and seizure. 19:29 All other systems are negative. Exam: 19:29 Constitutional: This is a well developed, well nourished patient who is awake, alert, rn and in no acute distress. Head/Face: Normocephalic, atraumatic. Eyes: Periorbital areas with no swelling, redness, or edema. ENT: MMM Cardiovascular: Regular rate and rhythm. No pulse deficits. Respiratory: No increased work of breathing, no retractions or nasal flaring. Abdomen/GI: Soft, non-tender, non-distended Skin: Warm, dry MS/ Extremity: Pulses equal, no cyanosis. Neurovascular intact. Full, normal range of motion. Equal circumference. Neuro: Awake and alert, GCS 15, oriented to person, place, time, and situation. 05/03 01:19 ECG was reviewed by the Attending Physician. rn Vital Signs: 05/02 19:19 BP 166 / 73; Pulse 88; Resp 20; Temp 98.8(O); Pulse Ox 100% on R/A; Weight 81.65 kg; kc4 Height 5 ft. 4 in. (162.56 cm); Pain 2/10; 20:14 BP 150 / 78; Pulse 80; Resp 20; Temp 98.8; Pulse Ox 98% on R/A; Pain 0/10; kc4 21:46 BP 123 / 64; Pulse 90; Resp 18; Temp 98.8(O); Pulse Ox 100% on R/A; Pain 0/10; kc4 23:02 BP 136 / 67; Pulse 92; Resp 16; Temp 98.0; Pulse Ox 100% on R/A; Pain 0/10; kc4 05/03 01:20 BP 143 / 72; Pulse 82; Resp 18; Temp 98.8(O); Pulse Ox 100% on R/A; [facility] 05/02 19:19 Body Mass Index 30.90 (81.65 kg, 162.56 cm) [facility] MDM: 05/02 19:18 Patient medically screened. rn 22:18 Differential diagnosis: bowel obstruction, coronary artery disease, diverticulitis, rn gastritis, gastroesophageal reflux disease, non-specific abd pain, pancreatitis, Peptic Ulcer Disease. Data reviewed: vital signs, nurses notes, lab test result(s), radiologic studies, CT scan. 22:19 Counseling: I had a detailed discussion with the patient and/or guardian regarding: the rn historical points, exam findings, and any diagnostic results supporting the discharge/admit diagnosis, lab results, radiology results, the need for further work-up and treatment in the hospital. Response to treatment: the patient's symptoms have mildly improved after treatment, and as a result, I will admit patient. Admission orders: after a detailed discussion of the patient's condition and case, the admit orders are written by me. ED course: With short segment colitis on CT which could explain the abdominal discomfort. Patient still has abdominal pain and feels uneasy about being discharged to the halfway. Will order antibiotics and admit to hospital. CT of chest shows improved aeration and improvement of pneumonia.. 05/02 19:25 Order name: Basic Metabolic Panel 05/02 19:25 Order name: CBC with Diff; Complete Time: 22:10 05/02 19:25 Order name: Hepatic Function; Complete Time: 22:10 05/02 19:25 Order name: Lipase; Complete Time: 22:10 05/02 19:25 Order name: Troponin (emerg Dept Use Only); Complete Time: 22:10 05/02 19:25 Order name: Basic Metabolic Panel; Complete Time: 22:10 EDMS 05/02 19:25 Order name: EKG; Complete Time: 19:26 05/02 19:26 Order name: CT Chest Abdomen Pelvis W/O Contrast; Complete Time: 20:25 05/02 19:28 Order name: Urine Dipstick-Ancillary; Complete Time: 20:25 EDMS 05/02 23:28 Order name: SARS-COV-2 RT PCR EDMS 05/02 19:25 Order name: IV Saline Lock; Complete Time: 19:37 rn 05/02 19:25 Order name: Labs collected and sent; Complete Time: 19:37 rn 05/02 19:25 Order name: EKG - Nurse/Tech; Complete Time: 19:42 rn 05/02 19:26 Order name: Urine Dipstick-Ancillary (obtain specimen); Complete Time: 19:42 rn EC/22 01:19 Rate is 93 beats/min. Rhythm is regular. QRS is positive in lead I and negative in lead rn aVF. CT interval is normal. QRS interval is normal. QT interval is normal. No Q waves. T waves are Normal. No ST changes noted. Clinical impression: NSR w/ Non-specific ST/T Changes. Interpreted by me. Reviewed by me. Administered Medications: 05/02 19:37 Drug: GI Cocktail without - (Maalox Suspension 30 ml, Lidocaine Liquid 2 % 15 vg1 ml) Route: PO; 20:12 Follow up: Response: No adverse reaction; Marked relief of symptoms kc4 22:54 Drug: Rocephin (cefTRIAXone) 1 grams Route: IV; Rate: calculated rate; Site: right kc4 antecubital; 23:02 Follow up: Response: No adverse reaction kc4 05/03 01:21 Follow up: IV Status: Completed infusion kc4 05/02 22:54 Drug: Flagyl (metroNIDAZOLE) 500 mg Volume: 100 ml; Route: IVPB; Rate: 200 ml/hr; kc4 Infused Over: 30 mins; Site: right antecubital; 23:12 Follow up: IV Status: Completed infusion kc4 05/03 01:21 Follow up: IV Status: Completed infusion kc4 Disposition Summary: 05/02/21 22:21 Hospitalization Ordered Hospitalization Status: Observation rn Location: Telemetry/MedSurg (observation) rn Condition: Stable rn Problem: new rn Symptoms: have improved rn Bed/Room Type: Standard rn Provider: Florian Veloz(05/03/21 01:10) rn Room Assignment: [id number](05/03/21 01:22) mw Diagnosis - Infectious gastroenteritis and colitis, unspecified rn - Abdominal pain, unspecified rn Forms: - Medication Reconciliation Form rn - SBAR form rn Signatures: Dispatcher [employer] [facility] Paty Cassidy RN RN mw Ebenezer Leija MD MD rn Pina Roman, RN RN vg1 Loni Burton kc4 Corrections: (The following items were deleted from the chart) 05/02 23:28 23:12 CORONAVIRUS+.BRZ ordered. EDMS EDMS 05/03 01:10 05/02 22:21 Jadon Reddy rn rn 05/03 01:22 05/02 22:21 iliana soliz
[2021-05-02] MEDS ORDERED: METRONIDAZOLE 500mg IVPB 500 MG/100 ML BAG IV ONE (23:12)
[2021-05-02] MEDS ORDERED: CEFTRIAXONE 1000 MG/VIAL ONE (23:12)
[2021-05-03] MEDS ORDERED: ONDANSETRON 4 MG/2 ML VIAL IV PRN (01:35)
[2021-05-03] MEDS ORDERED: ACETAMINOPHEN 500 MG TAB PO PRN (01:35)
[2021-05-03] MEDS ORDERED: D5 0.45 NS 1,000 ML IV SCH (02:00)
[2021-05-03 03:31] VITALS: BMI 30.9
[2021-05-03] MEDS ORDERED: clonazePAM 1 MG TAB PO ONE (03:42)
[2021-05-03] MEDS ORDERED: ZOLPIDEM TARTRATE 5 MG TABLET PO PRN (08:04)
[2021-05-03] MEDS ORDERED: AMLODIPINE 5 MG TAB PO ONE (08:13)
[2021-05-03] MEDS ORDERED: DIPHENHYDRAMINE HCL PO PRN (08:15)
[2021-05-03] MEDS: METRONIDAZOLE 500mg IVPB 500 MG/100 ML BAG IV SCH ×2 (08:22→16:57)
[2021-05-03] MEDS: THYROID 30 MG TAB PO SCH (08:36)
[2021-05-03] MEDS: CIPROFLOXACIN 400mg IV 400 MG/200 ML BAG IV SCH ×2 (08:36→19:46)
[2021-05-03] MEDS: METHYLPREDNISOLONE 40 MG INJ IV SCH ×2 (08:37→16:57)
[2021-05-03] MEDS: clonazePAM 0.5 MG TAB PO SCH ×2 (08:38→19:48)
[2021-05-03] MEDS: PRAMIPEXOLE 1 MG TAB PO SCH ×2 (09:00→19:48)
[2021-05-03] MEDS ORDERED: MESALAMINE 1.2 GM PO SCH (09:00)
[2021-05-03] MEDS ORDERED: MIRTAZAPINE 15 MG TAB PO SCH (21:00)
[2021-05-03] MEDS ORDERED: ROPINIROLE HCL 0.25 MG TAB PO SCH (21:00)
[2021-05-03] MEDS ORDERED: FAMOTIDINE 20 MG TAB PO SCH (21:00)
[2021-05-03] MEDS ORDERED: CEFTRIAXONE 1 GM/NS 50 ML 1 GM/50 ML BAG IV SCH (21:00)
[2021-05-03] MEDS ORDERED: GABAPENTIN 300 MG CAP PO SCH (21:00)
[2021-05-04] MEDS: METHYLPREDNISOLONE 40 MG INJ IV SCH ×2 (00:25→09:05)
[2021-05-04] MEDS: METRONIDAZOLE 500mg IVPB 500 MG/100 ML BAG IV SCH ×2 (00:26→09:09)
--- NOTE | 2021-05-04 02:17 | HP ---
Date of Admission: 05/03/2021 Chief Complaint: Abdominal pain. History Of Present Illness: This is an 85-year-old female patient who was doing fine in her normal usual state of health until sometime yesterday after supper she started to have abdominal pain all across her abdomen. Denies any fever, chills, nausea, vomiting. No constipation. She had 2-3 soft bowel movement yesterday, but no watery stool, denies any blood in stool. After she was evaluated in the ER, she was admitted to the hospital. This morning, she was feeling better than yesterday. Medications: Clonazepam 0.5 mg takes half tablet by mouth in the morning and atbedtime, estradiol 0.5 mg daily, famotidine 40 mg daily at bedtime, folic acid 1mg daily, gabapentin 300 mg daily at bedtime, Lialda 4 tablets by mouth daily, methotrexate 2.5 mg, mirtazapine 45 mg daily at bedtime, pramipexole 1.5 mg 2 times a day, ropinirole 0.5 mg at bedtime, [place] Thyroid 60 mg daily, and zolpidem 5 mg takes half to 1 tablet daily at bedtime as needed. Allergies: TO CODEINE CAUSING FAINTING TYPE OF FEELING, ERYTHROMYCIN CAUSED HEPATITIS TYPE OF PROBLEM AND SHE WAS LISTED ALLERGIC TO IODINE AND SAYS MANYYEARS AGO SHE HAD SOME TESTING DONE WITH IODINE AND IT CAUSED THROAT SWELLING, BUT TODAY THE PATIENT HAD CT SCAN OF THE CHEST PER PE PROTOCOL AND SHE DID NOT HAVE ANY REACTION, SO WE SHOULD NOT LIST HER ALLERGIC TO IODINE ANYMORE. Review of Systems: GI: As mentioned above. All other systems reviewed and negative. Past Medical History: Restless leg syndrome, hypothyroidism, impaired fasting glucose, hypertension, mixed hyperlipidemia, diverticulosis, Crohn disease, gastroesophageal reflux disease, leg edema, iron deficiency anemia, insomnia, osteopenia. Past Surgical History: Significant for appendectomy, tonsillectomy, cataract surgery, correction of ptosis on both sides, cholecystectomy, tubal ligation, hysterectomy. Family History: Parents and both of them had coronary artery disease. Sister with allergy problems. Son has multiple sclerosis. Social History: Positive for smoking. Use of alcohol, occasional. Immunization History: The patient's first dose of COVID-19 vaccine was August 03, 2020 and second dose September 11, 2020. Physical Examination: Vital Signs: Last temperature 97.4, pulse 82, respiratory rate 16, blood pressure 185/83, oxygen saturation 94%. General: Awake, alert, oriented, not in distress. HEENT: Head atraumatic, normocephalic. Conjunctivae nonerythematous. Sclerae white. Mouth, no thrush or edema noted. Ears/Nose, no mass, lesion, discharge noted. Neck: Supple. No JVD, lymph nodes, bruit, thyromegaly noted. Lungs: Bilateral good equal air entry. Clear to auscultation. No rhonchi. No rales. Heart: Normal heart sounds, no murmur or gallop. Abdomen: Soft, bowel sounds normal. No guarding, rigidity, tenderness, mass, hepatosplenomegaly, distention, or bruit noted. Extremities: No leg edema. No calf tenderness. Skin: No rash, ulcer, cellulitis. Lymphatics: No lymph node enlargement in neck, supraclavicular, infraclavicular region. Neuro: No focal neurological deficit. Chest: Unremarkable. External Genitalia: Deferred. Rectal: Deferred. Laboratory Data: White count 6.5, hemoglobin 11.2, platelets 333. Sodium 141, potassium 3.8, chloride 105, bicarb 29, BUN 21, creatinine 0.85, glucose 128, AST 138, ALT 62, alkaline phosphatase 145. Troponin less than 0.02. Lipase 68. Urinalysis; trace ketones, otherwise negative. COVID-19 test negative. CAT scan of the chest, abdomen, and pelvis shows irregular colonic wall thickening at the splenic flexure, improved aeration in the left upper lobe consolidation compared to before. Impression: 1. Crohn disease, with acute exacerbation. 2. Iron-deficiency anemia. 3. Hypertension. 4. Restless leg syndrome. 5. Hypothyroidism. 6. Impaired fasting glucose. 7. Mixed hyperlipidemia. 8. Gastroesophageal reflux disease. 9. Diverticulosis. 10. Insomnia. 11. Abnormal liver function tests. 12. Colitis. Plan: We will admit the patient to hospital for further evaluation and management of this problem. The patient is appropriate for inpatient and is expected to spend 2 midnights in hospital. Home medications will be continued per order. We will go ahead and get stool test done for C diff culture as well as ova and parasite. Start empiric antibiotic, which is Cipro and metronidazole. Give pain medication as needed. Consult Physical therapy. Patient was encouraged to ambulate and we will give her diet as tolerated. We will also start her on IV Solu-Medrol 40 mg IV every 8 hours and I will see her tomorrow for followup. She has not had a colonoscopy lately and I did talk to her about importance of getting colonoscopy to make sure that there is no evidence of any colon cancer in the area of abnormality noted on the CAT scan. She will follow up with Dr. Flores regarding this after discharge. I will see her tomorrow for followup. LIYA/SIMONA Voice ID: [id number] MTDD
[2021-05-04 04:22] LABS: Absolute Lymphocytes (CBC) 0.6 K/uL (0.7-4.9); Basophils % 0.1 % (0-1.3); Hematocrit 31.6 % (36.0-45.0); MPV 6.6 fL (7.6-11.3); RBC Red Blood Cell Count 3.02 M/uL (3.86-4.86)
[2021-05-04 04:44] LABS: ALT/SGPT 136 U/L (12-78); AST/SGOT 63 U/L (15-37); Alkaline Phosphatase 126 U/L (45-117); BUN Blood Urea Nitrogen 15 mg/dL (7-18); Bicarbonate 26 mmol/L (21-32); Bilirubin Direct < 0.1 mg/dL (0-0.2); Bilirubin Total 0.2 mg/dL (0.2-1.0); Glucose Level 163 mg/dL (74-106); Lipase 37 U/L (73-393); Potassium 4.1 mmol/L (3.5-5.1); Protein, Total 6.6 g/dL (6.4-8.2); Sodium Level 143 mmol/L (136-145)
[2021-05-04] MEDS ORDERED: Mesalamine [Lialda] 1.2 GM Tablet.Dr PO SCH (09:00)
[2021-05-04] MEDS: clonazePAM 0.5 MG TAB PO SCH (09:05)
[2021-05-04] MEDS: PRAMIPEXOLE 1 MG TAB PO SCH (09:08)
[2021-05-04] MEDS ORDERED: AMLODIPINE 5 MG TAB PO ONE (09:08)
[2021-05-04] MEDS: CIPROFLOXACIN 400mg IV 400 MG/200 ML BAG IV SCH (09:09)
[2021-05-04] MEDS: THYROID 30 MG TAB PO SCH (09:37)
[2021-05-04 09:48] VITALS: O2SAT 97
[2021-05-04 12:18] VITALS: BP 151/68; TEMP 97.6
--- NOTE | 2021-05-04 12:21 | DS ---
Date of Discharge: 05/04/2021 Disposition: Discharged to go home. Physical Examination: HEENT: Unremarkable. Lungs: Clear to auscultation. Heart: Sounds normal. Abdomen: Soft. Bowel sounds normal. No guarding, rigidity, tenderness, distention. Extremities: No leg edema. Laboratory Data: Upon admission, white count 6.5, hemoglobin 11.2, platelets 333. Today, repeat white count 5.9, hemoglobin 10.6, platelets 319. Upon admission, sodium 141, potassium 3.8, chloride 105, bicarb 29, BUN 21, creatinine 0.85, glucose 128. Liver function tests unremarkable except AST 138. Troponin less than 0.02. Today, sodium 143, potassium 4.1, chloride 110, bicarb 26, BUN 15, creatinine 0.74, glucose 163, AST 63, ALT 136, alkaline phosphatase 126, lipase 37. Hospital Course: 85-year-old pleasant female patient was admitted to the hospital with abdominal pain. Please see dictated H and P for more information. After the patient was evaluated in the emergency room, she was admitted to the hospital, where her CAT scan had shown changes of colitis. After she was admitted to the hospital, she was started on IV Cipro, metronidazole, and IV Solu-Medrol included. Overall, her condition improved. She has not had any recurrence of abdominal pain. She has had few small bowel movements, but it is well-formed stool. No watery stool. No nausea. No vomiting. No fever. The vital signs are stable except her blood pressure was elevated yesterday, so she did get one dose of amlodipine 5 mg yesterday, and we will give another dose today, and our goal is to continue this amlodipine 5 mg daily on outpatient basis. The patient was advised to follow up with her funds transfer clerk to have outpatient colonoscopy done, and she will follow up with Dr. Flores. CAT scan findings discussed with her, and we need to make sure there is no underlying colon malignancy. All these details were discussed with her. The patient is feeling much better today , tolerating diet well, and she will be discharged to go home in stable condition with following discharge medications and instructions. Discharge Medications: 1. Continue all prior home medications. 2. Cipro 500 mg two times a day for 10 days. 3. Metronidazole 500 mg three times a day for 10 days. 4. Amlodipine 5 mg daily in morning. 5. Prednisone 5 mg tablets. The patient to take 2 tablets by mouth two times a day for 4 days, then 2 tablets by mouth daily for 4 days, then one tablet by mouth daily for 4 days, then one-half tablet by mouth daily for 4 days, then stop. Final Diagnoses: 1. Colitis. 2. Crohn's disease with acute exacerbation. 3. Iron deficiency anemia. 4. Hypertension. 5. Restless legs syndrome. 6. Hypothyroidism. 7. Impaired fasting glucose. 8. Mixed hyperlipidemia. 9. Gastroesophageal reflux disease. 10. Diverticulosis. 11. Insomnia. 12. Abnormal liver function tests. LIYA/MODL Voice ID: [id number] Report ID: [id number] MTDD
== END 2021-05-04 16:00 | disposition home or self-care (01) ==
LOC: ER 19:16 → ERHOLD 05-03 01:17 → 4TH 05-03 01:27
PROVIDERS: ADMIT Internal Medicine; ATTEND Internal Medicine
DX: K52.9 Noninfective gastroenteritis and colitis, unspecified (principal); K57.90 Diverticulosis of intestine, part unspecified, without perforation or abscess without bleeding; D50.9 Iron deficiency anemia, unspecified; K50.90 Crohn's disease, unspecified, without complications; K21.9 Gastro-esophageal reflux disease without esophagitis; I10 Essential (primary) hypertension; G25.81 Restless legs syndrome; E03.9 Hypothyroidism, unspecified; E78.2 Mixed hyperlipidemia; G47.00 Insomnia, unspecified; R73.01 Impaired fasting glucose; R94.5 Abnormal results of liver function studies; F17.210 Nicotine dependence, cigarettes, uncomplicated; Z88.3 Allergy status to other anti-infective agents; Z91.041 Radiographic dye allergy status; Z90.49 Acquired absence of other specified parts of digestive tract; Z20.822 Contact with and (suspected) exposure to COVID-19
CPT/HCPCS: 96365; 96368; 93005; 87045; 85025 ×2; 80048 ×2; 36415 ×2; 87177; 80076 ×2; 87046; 87209; 81003; 84484; 83690 ×2; 71250; 74176; 97161; 99285; 96366; U0003; J7799; J2920 ×4; J0744 ×3; G0378 ×3

== ENCOUNTER 2022-07-11 09:31 | Day surgery (SDC) | payer OTHER ==
[2022-07-11] MEDS ORDERED: ACETAMINOPHEN 325 MG TABLET ONE (09:51)
[2022-07-11] MEDS ORDERED: NA CHLORIDE 0.9% 250 ML ONE (09:51)
[2022-07-11] MEDS ORDERED: NA CHLORIDE 0.9% IV ONE (10:00)
[2022-07-11] MEDS ORDERED: INFLIXIMAB ABDA IV ONE (10:00)
[2022-07-11 13:30] VITALS: BP 136/60; TEMP 98; O2SAT 92; BMI 33.3
== END 2022-07-11 13:45 | disposition home or self-care (01) ==
LOC: DS 09:31
PROVIDERS: ATTEND Internal Medicine Gastroenterology
DX: K50.911 Crohn's disease, unspecified, with rectal bleeding (principal)
CPT/HCPCS: 96365; 96366; J7050 ×2

== ENCOUNTER → 2022-09-03 | Day surgery (SDC) | payer OTHER ==
[~2022-09-03] MED LIST: ACETAMINOPHEN 325 MG TABLET ONE; DIPHENHYDRAMINE 25 MG TAB/CAP ONE; INFLIXIMAB ABDA IV ONE; NA CHLORIDE 0.9% 250 ML ONE; NA CHLORIDE 0.9% IV ONE; Ringers Lactate 1,000 ML IV ONE
[2022-09-03 09:12] VITALS: BMI 33.3
[2022-09-03 12:24] VITALS: BP 165/71; TEMP 97.7; O2SAT 100
== END ==
LOC: DS 08:46
PROVIDERS: ATTEND Internal Medicine Gastroenterology
DX: K50.911 Crohn's disease, unspecified, with rectal bleeding (principal)
CPT/HCPCS: Q5104; J7050 ×2

== ENCOUNTER 2022-12-18 16:14 | Inpatient (IN) | payer OTHER ==
--- OUTSIDE RECORDS SUMMARY | 2022-12-18 16:16 | XMS REPORT | Continuity of Care Document ---
:1935 Author Organization [facility] t Address [address] [place] [address] Care Team Providers Name Role Phone Lab, [facility] Fam Pob I Attending Clinician Unavailable Madeline Cochran Attending Clinician MADELINE ESQUIVEL Attending Clinician Unavailable Payers Payer Name Policy Type Policy Number Effective Date Expiration Date S ource Problems This patient has no known problems. Allergies, Adverse Reactions, Alerts Allergy Allergy Status Severity Reaction(s) Onset Inactive Treating Comm ents Source Name Type Date Date Clinician NO KNOWN Drug Active Univers ALLERGIE Class [facility] Social History Social Habit Start Date Stop Date Quantity Comments [facility] to SARS-[facility]2 Not sure [facility] [place] [facility] Smoking Status Start Date Stop Date Source Unknown if ever smoked [facility] y [facility] Medications This patient has no known medications. Procedures This patient has no known procedures. Encounters Start End Encounter Admission Attending Care Care Encounter Source Date/Time Date/Time Type Type Clinicians Facility Department ID 2020-05-29 2020-05-29 Laboratory Lab, [facility] [place] [id number] 13:28:59 13:48:59 Only Fam Pob I [facility] [id number] [place] [id number] [place] [phone] [address] 2020-05-29 2020-05-29 Laboratory Lab, [facility] Fam Pob I [facility] 1.. [id number] Univers 13:28:59 13:48:59 Only Madeline Esquivel [facility] [id number] chaz [facility] [id number] [facility] as [facility]io [phone] Al aric [address] 2020-05-29 2020-05-29 Outpatient R [facility] [id number] Univers 13:00:00 13:00:00 MADELINE ware [facility] Results This patient has no known results.
--- NOTE | 2022-12-18 16:57 | RAD REPORT ---
EXAM DESCRIPTION: RAD - Chest Single View - 12/18/2022 4:51 pm CLINICAL HISTORY: CHEST PAIN Chest pain. COMPARISON: Chest Pa And Lat (2 Views) dated 01/03/2022; Chest Single View dated 04/22/2021; Chest Pa And Lat (2 Views) dated 11/06/2020; Chest Pa And Lat (2 Views) dated 02/27/2020 FINDINGS: Portable technique limits examination quality. Mild interstitial pulmonary edema. The heart is mildly enlarged. No displaced fractures. IMPRESSION: Mild CHF.
[2022-12-18 16:59] LABS: Absolute Lymphocytes (CBC) 1.1 K/uL (0.7-4.9); Hematocrit 33.8 % (36.0-45.0); Lymphocytes % 14.9 % (15.3-44.8); MCV 103.6 fL (80-100); MPV 6.7 fL (7.6-11.3); RBC Red Blood Cell Count 3.27 M/uL (3.86-4.86)
[2022-12-18 17:16] LABS: Bilirubin Total 0.5 mg/dL (0.2-1.0); Potassium 3.5 mEq/L (3.5-5.1); Protein, Total 7.6 g/dL (6.4-8.2)
[2022-12-18 17:19] LABS: Troponin High Sensitivity 76.7 pg/mL (<58.9)
[2022-12-18] MEDS ORDERED: FUROSEMIDE 40 MG/4 ML VIAL ONE (17:32)
--- NOTE | 2022-12-18 18:21 | RAD REPORT ---
EXAM DESCRIPTION: CT - Chest For Pe Angio - 12/18/2022 6:12 pm CLINICAL HISTORY: Chest pain. PE COMPARISON: Chest Abd Pelvis Wo Con dated 05/02/2021 TECHNIQUE: CT angiogram of the pulmonary arteries was performed with MIP. All CT scans are performed using dose optimization technique as appropriate and may include automated exposure control or mA/KV adjustment according to patient size. FINDINGS: Evidence of acute pulmonary embolism is seen predominately involving the right main, right upper posterior right lower lobe branches. Mild RV strain. No acute aortic finding demonstrated. Emphysematous changes are present with mild opacity in the right lung base which may represent infilt rate/developing pneumonia. The lungs otherwise clear. No significant pericardial or pleural fluid. No concerning bony finding. IMPRESSION: Evidence of acute right-sided pulmonary thromboembolism is present with mild RV strain p attern. Emphysema with mild opacity in the right lung base suspicious for mild infiltrate.
--- NOTE | 2022-12-18 18:23 | RAD REPORT ---
EXAM DESCRIPTION: CTAbdomen Pelvis W Contrast - 12/18/2022 6:12 pm CLINICAL HISTORY: Abdominal pain. upper abd pain COMPARISON: No comparisons TECHNIQUE: Biphasic CT imaging of the abdomen and pelvis was performed with 100 ml non-ionic IV cont rast. All CT scans are performed using dose optimization technique as appropriate and may include automated exposure control or mA/KV adjustment according to patient size. FINDINGS: Mild linear opacities in both lung bases. Mild fatty liver. Cholecystectomy clips. The spleen, pancreas, adrenal glands right kidney are normal . 38 mm benign cyst parapelvic region left kidney. No bowel obstruction, free air, free fluid or abscess. Moderate stool throughout the colon. Nonvisual ized appendix. No evidence of significant lymphadenopathy. Moderate lumbar degenerative changes. IMPRESSION: No acute intra-abdominal or pelvic finding. Moderate stool retention.
--- NOTE | 2022-12-18 18:37 | ER ---
Nurse's Notes [facility] Name: Meenakshi Michele Age: 86 yrs Sex: Female : 1935 Arrival Date: 12/18/2022 Time: 16:14 Bed 6 Private MD: Diagnosis: Pulmonary embolism without acute cor pulmonale;Other abdominal pain;Elevated Troponin Presentation: 12/18 16:28 Chief complaint: Patient states: Bilateral lower CP/upper abdominal pain started ll1 Thursday with SOB and hard to breathe. R lower chest still hurts. No cough or fever. Sent in for further eval. by Dr. Veloz. Coronavirus screen: Vaccine status: Patient reports receiving the 2nd dose of the covid vaccine. Client denies travel out of the [place] in the last 14 days. difficulty breathing, fatigue, muscle pain, shortness of breath, Client presents with at least one sign or symptom that may indicate coronavirus-19. Standard/surgical mask placed on the client. Ebola Screen: Patient denies travel to an Ebola-affected area in the 21 days before illness onset. Initial Sepsis Screen: Does the patient meet any 2 criteria? No. Patient's initial sepsis screen is negative. Does the patient have a suspected source of infection? No. Patient's initial sepsis screen is negative. Risk Assessment: Do you want to hurt yourself or someone else? Patient reports no desire to harm self or others. Onset of symptoms was December 16, 2022. 16:28 Method Of Arrival: Wheelchair ll1 16:28 Acuity: PONCHO 3 ll1 Triage Assessment: 16:32 General: Appears uncomfortable, Behavior is calm, cooperative, appropriate for age. ll1 Pain: Complains of pain in R lower chest Pain currently is 4 out of 10 on a pain scale. Quality of pain is described as aching. Cardiovascular: Reports chest pain, shortness of breath. Respiratory: Reports shortness of breath cough that is labored breathing pain with respiration. 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 - Social history:: Smoking status: Patient reports the use of cigarette tobacco products, / PPD. Screenin:[facility] ED Fall Risk Assessment (Adult) History of falling in the last 3 months, kc6 including since admission No falls in past 3 months (0 pts) Confusion or Disorientation No (0 pts) Intoxicated or Sedated No (0 pts) Impaired Gait No (0 pts) Mobility Assist Device Used No (0 pt) Altered Elimination No (0 pt) Score/Fall Risk Level 0 - 2 = Low Risk Oriented to surroundings, Maintained a safe environment, Educated pt \T\ family on fall prevention, incl call for assistance when getting out of bed, Assessed \T\ reinforced patient's understanding of fall precautions, Hourly rounding (assess needs \T\ fall precautionary measures) done. Abuse screen: Denies threats or abuse. Denies injuries from another. Nutritional screening: No deficits noted. Tuberculosis screening: No symptoms or risk factors identified. Assessment: 16:54 General: Appears in no apparent distress. comfortable, obese, Behavior is calm, kc6 cooperative, appropriate for age. Pain: Complains of pain in right rib area. Neuro: Bustamante Agitation-Sedation Scale (RASS): 0 - Alert and Calm Level of Consciousness is awake, alert, obeys commands, Oriented to person, place, time, situation, Appropriate for age. Cardiovascular: Capillary refill < 3 seconds. Respiratory: Airway is patent Trachea midline Respiratory effort is even, unlabored, Respiratory pattern is symmetrical, tachypnea Breath sounds with wheezes bilaterally. GI: No signs and/or symptoms were reported involving the gastrointestinal system. : No signs and/or symptoms were reported regarding the genitourinary system. EENT: No signs and/or symptoms were reported regarding the EENT system. Derm: No signs and/or symptoms reported regarding the dermatologic system. Skin is intact, Skin is pink, warm \T\ dry. Musculoskeletal: No signs and/or symptoms reported regarding the musculoskeletal system. Circulation, motion, and sensation intact. Capillary refill < 3 seconds, Range of motion: intact in all extremities. 17:18 Reassessment: pt appears to be 85% on RA. pt placed on 2L via NC and is currently 97%. kc6 Dr. Lyn notified. 19:17 General: Appears in no apparent distress. comfortable, Behavior is calm, cooperative. kd3 Pain:. Neuro: Level of Consciousness is awake, alert, obeys commands, Oriented to person, place, time, situation, Appropriate for age. Respiratory: Airway is patent Trachea midline Respiratory effort is even, unlabored, Respiratory pattern is symmetrical. 12/19 00:40 Reassessment: Patient has pure wick in place. pf1 Vital Signs: 12/18 16:28 BP 129 / 63; Pulse 92; Resp 18; Temp 98.7(O); Pulse Ox 93% on R/A; Pain 4/10; ll1 17:00 BP 115 / 57; Pulse 84; Resp 18; Pulse Ox 98% ; ko1 17:30 BP 143 / 72; Pulse 89; Resp 16; Pulse Ox 97% ; ko1 18:00 BP 143 / 92; Pulse 93; Resp 18; Pulse Ox 98% ; ko1 18:30 BP 130 / 65; Pulse 87; Resp 18; Pulse Ox 97% ; ko1 18:55 Weight 87.5 kg (M); Height 5 ft. 5 in. ; ko1 19:18 BP 136 / 68; Pulse 80; Resp 16; Pulse Ox 98% on 3 lpm NC; kd3 19:18 BP 136 / 68; Pulse 80; Resp 18; Pulse Ox 98% on 3 lpm NC; sg5 20:30 BP 130 / 70; Pulse 88; Resp 16; Pulse Ox 97% on 3 lpm NC; sg5 18:55 Body Mass Index 32.10 (87.50 kg, 165.1 cm) ko1 16:28 Pain Scale: Adult ll1 ED Course: 16:15 Patient arrived in ED. rg4 16:22 Kishore Lyn MD is Attending Physician. bs3 16:32 Triage completed. ll1 16:32 Arm band placed on Patient placed in an exam room, on a stretcher. ll1 16:34 Ansley Vyas, RN is Primary Nurse. kc6 16:53 XRAY Chest (1 view) In Process Unspecified. EDMS 16:54 Inserted saline lock: 20 gauge in right antecubital area, using aseptic technique. kc6 Blood collected. 16:55 Patient has correct armband on for positive identification. Bed in low position. Call kc6 light in reach. Side rails up X2. 18:14 CT Abd/Pelvis - IV Contrast Only In Process Unspecified. EDMS 18:14 CT Chest For PE Angio In Process Unspecified. EDMS 18:26 Attending Physician role handed off by Kishore Lyn MD ms3 18:26 Valeriy Villarreal DO is Attending Physician. ms3 18:36 Ezequiel Veloz MD is Hospitalizing Provider. ms3 12/19 05:24 No provider procedures requiring assistance completed. Patient admitted, IV remains in kd3 place. Administered Medications: 12/18 17:30 Not Given (Patient Refused): Furosemide IVP 40 mg IVP once; give over 2 minutes bs3 17:34 Drug: Furosemide IVP 20 mg Route: IVP; Site: right antecubital; kc6 19:19 Follow up: Response: No adverse reaction kd3 19:17 Drug: Enoxaparin Sub-Q 1 mg/kg Route: Sub-Q; Site: abdomen; kd3 Medication: 12/19 05:24 VIS not applicable for this client. kd3 Outcome: 12/18 18:37 Decision to Hospitalize by Provider. ms3 12/19 05:24 Admitted to ER Hold. Please see [facility] for further documentation. kd3 Condition: stable Discharge instructions given to patient, Instructed on the need for admit, Demonstrated understanding of instructions, follow-up care. 12:03 Patient left the ED. ll1 Signatures: Dispatcher [employer] EDMS Frances Roman rg4 Olga Mcdermott RN RN ll1 Valeriy Villarreal DO DO ms3 Kym Jacobo RN RN kd3 Ansley Vyas, ALKA RN kc6 Kishore Lyn MD MD bs3 Lyric Whitney RN RN ko1 Mary Garcia RN RN pf1 Day Geller, RN RN sg5 Corrections: (The following items were deleted from the chart) 12/18 18:58 18:55 87.5 kg Measured; kc6 ko1
--- NOTE | 2022-12-18 18:38 | EDPHYS ---
Physician Documentation [facility] Name: Meenakshi Michele Age: 86 yrs Sex: Female : 1935 Arrival Date: 12/18/2022 Time: 16:14 Bed 6 Private MD: ED Physician Valeriy Villarreal HPI: 12/18 16:38 This 86 yrs old Female presents to ER via Wheelchair with complaints of Sent bs3 by Veloz. 16:38 86-year-old female history of cholecystectomy and Crohn's presents with chest versus bs3 upper abdominal pain symptoms have been ongoing for approximately 2 days she saw her primary care doctor who was concerned about yellow sclera and sent her in for blood work and a CT patient notes that last week she had some chest pain with shortness of breath and still occasionally has symptoms she is 1/4 pack a day smoker and has been doing this for several lifetime she cannot relate whether or not she thinks her pain is in her chest or her abdomen. 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 - Social history:: Smoking status: Patient reports the use of cigarette tobacco products, 1/4 PPD. ROS: 16:38 Constitutional: Negative for fever, chills bs3 16:38 All other systems are negative. Exam: 16:38 Constitutional: This is a well developed, well nourished patient who is awake, alert, bs3 and in no acute distress. Head/Face: Normocephalic, atraumatic. Eyes: Pupils equal round and reactive to light, extra-ocular motions intact. Lids and lashes normal. ENT: mmm, no posterior phyarngeal erythema Neck: Trachea midline, no thyromegaly, no neck stiffness Chest/axilla: Normal chest wall appearance and motion. Nontender with no deformity. No lesions are appreciated. Cardiovascular: Regular rate and rhythm with a normal S1 and S2. symmetric pulses in upper extremities Respiratory: Lungs have equal breath sounds bilaterally, clear to auscultation, no respiratory distress Abdomen/GI: Abdomen slightly distended she has mild right upper quadrant greater than left upper quadrant tenderness Skin: Warm, dry with normal turgor. Normal color with no rashes, no lesions, and no evidence of cellulitis. MS/ Extremity: Pulses equal, no cyanosis. Neurovascular intact. Full, normal range of motion. Neuro: Awake and alert, GCS 15, oriented to person, place, time, and situation. Cranial nerves II-XII grossly intact. Motor strength 5/5 in all extremities. Sensory grossly intact. 16:54 Normal sinus rhythm at [address] elevation or depression QTc 435 as interpreted by bs3 myself Vital Signs: 16:28 BP 129 / 63; Pulse 92; Resp 18; Temp 98.7(O); Pulse Ox 93% on R/A; Pain 4/10; ll1 17:00 BP 115 / 57; Pulse 84; Resp 18; Pulse Ox 98% ; ko1 17:30 BP 143 / 72; Pulse 89; Resp 16; Pulse Ox 97% ; ko1 18:00 BP 143 / 92; Pulse 93; Resp 18; Pulse Ox 98% ; ko1 18:30 BP 130 / 65; Pulse 87; Resp 18; Pulse Ox 97% ; ko1 18:55 Weight 87.5 kg (M); Height 5 ft. 5 in. ; ko1 19:18 BP 136 / 68; Pulse 80; Resp 16; Pulse Ox 98% on 3 lpm NC; kd3 19:18 BP 136 / 68; Pulse 80; Resp 18; Pulse Ox 98% on 3 lpm NC; sg5 20:30 BP 130 / 70; Pulse 88; Resp 16; Pulse Ox 97% on 3 lpm NC; sg5 18:55 Body Mass Index 32.10 (87.50 kg, 165.1 cm) ko1 16:28 Pain Scale: Adult ll1 MDM: 16:22 Patient medically screened. bs3 16:38 Data reviewed: vital signs, nurses notes. bs3 17:21 ED course: Labs notable for elevated D-dimer we will do CT given her hypoxia her x-ray bs3 is consistent with pulmonary edema we will give Lasix. 17:30 ED course: Discussed with Dr. Veloz who agrees with the plan recommended admission will bs3 admit for decompensated CHF, he requested 20mg IV lasix x [address] 18:34 Differential diagnosis: abnormal EKG, acute myocardial infarction, pulmonary embolus. ms3 Consideration of Admission/Observation Patient was admitted/placed on observation. Management of patient was discussed with the following: Hospitalist: Dr Veloz- Anshu accepts patient. Would like US of bilateral LE, Consult for Dr Hsu, Lovenox 1 mg/kg SC q 12 hours and bedrest.. I considered the following discharge prescriptions or medication management in the emergency department Medications were administered in the Emergency Department. See MAR. Counseling: I had a detailed discussion with the patient and/or guardian regarding: the historical points, exam findings, and any diagnostic results supporting the discharge/admit diagnosis, lab results, radiology results, the need for further work-up and treatment in the hospital. Transition of care: Care assumed from Kishore Lyn MD. 12/18 16:23 Order name: CBC with Diff; Complete Time: 17:09 bs3 12/18 16:23 Order name: Comprehensive Metabolic Panel; Complete Time: 17:20 bs3 12/18 16:23 Order name: Lipase; Complete Time: 17:20 bs3 / 16:23 Order name: Troponin High Sensitivity; Complete Time: 17:20 bs3 12/18 16:35 Order name: D-Dimer; Complete Time: 17:13 bs3 /08 17:05 Order name: BNP; Complete Time: 17:39 bs3 /08 18:45 Order name: Basic Metabolic Panel EDMS 12/18 18:45 Order name: Basic Metabolic Panel EDMS 12/18 18:45 Order name: CBC with Automated Diff EDMS 12/18 18:45 Order name: CBC with Automated Diff EDMS 12/18 16:23 Order name: CT Abd/Pelvis - IV Contrast Only; Complete Time: 18:27 bs3 12/18 17:16 Interpretation: Abnormal. bs3 /08 16:35 Order name: XRAY Chest (1 view); Complete Time: 17:04 bs3 12/18 17:11 Order name: CT Chest For PE Angio; Complete Time: 18:27 bs3 12/18 18:38 Order name: US Extremity Venous W Compression Franklyn ms3 12/18 19:49 Order name: US EDMS 12/18 18:43 Order name: CONS Physician Consult EDMS 12/18 18:45 Order name: Heart Healthy EDMS 12/18 16:23 Order name: EKG - Nurse/Tech; Complete Time: 16:54 bs3 Administered Medications: 17:30 Not Given (Patient Refused): Furosemide IVP 40 mg IVP once; give over 2 minutes bs3 17:34 Drug: Furosemide IVP 20 mg Route: IVP; Site: right antecubital; kc6 19:19 Follow up: Response: No adverse reaction kd3 19:17 Drug: Enoxaparin Sub-Q 1 mg/kg Route: Sub-Q; Site: abdomen; kd3 Disposition Summary: 12/18/22 18:37 Hospitalization Ordered Hospitalization Status: Inpatient Admission ms3 Provider: Ezequiel Veloz ms3 Condition: Stable ms3 Problem: new ms3 Symptoms: are unchanged ms3 Bed/Room Type: Standard ms3 Location: Telemetry/MedSurg (Inpatient)(12/19/22 10:15) [facility] Room Assignment: [facility](12/19/22 10:15) [facility] Diagnosis - Pulmonary embolism without acute cor pulmonale ms3 - Other abdominal pain ms3 - Elevated Troponin ms3 Forms: - Medication Reconciliation Form ms3 - SBAR form ms3 Signatures: Dispatcher [employer] [facility] Trish Roman, RN ALKA Tutu Lopes RN RN ja1 Olga Mcdermott RN RN ll1 Valeriy Villarreal DO DO ms3 Kym Jacobo RN RN kd3 Ansley Vyas RN RN kc6 Kishore Lyn MD MD bs3 Day Geller, RN RN sg5 Corrections: (The following items were deleted from the chart) 19:29 18:37 Telemetry/MedSurg (Inpatient) ms3 19:29 18:37 ms3 12/19 10:15 12/18 19:29 [facility] ER HOLD ja 06/09 10:15 06/08 19[facility]29 [facility]
[2022-12-18] MEDS ORDERED: ACETAMINOPHEN 500 MG TAB PO PRN (18:41)
[2022-12-18] MEDS ORDERED: ONDANSETRON 4 MG/2 ML VIAL IV PRN (18:41)
[2022-12-18] MEDS ORDERED: ENOXAPARIN 80 MG/0.8 ML SQ ONE ×2 (19:20→20:00)
--- NOTE | 2022-12-18 19:47 | RAD REPORT ---
EXAM DESCRIPTION: US - Extrem Venous W Compress Franklyn - 12/18/2022 7:39 pm CLINICAL HISTORY: Pulmonary Embolism Bilateral leg edema and swelling. COMPARISON: Extremity Venous Uni Ltd dated 06/27/2020 TECHNIQUE: Real-time sonographic interrogation of the left and right lower extremity deep venous sys tems was performed. FINDINGS: Evidence of thrombus is present in the left popliteal vein. No right-sided DVT. IMPRESSION: Positive for DVT on the left involving the popliteal vein.
--- NOTE | 2022-12-18 20:07 | HP ---
Date of Admission: 12/18/2022 Chief Complaint: Abdominal pain. History Of Present Illness: This is an 86-year-old female patient who came into office today with 2 days' history of right upper quadrant and left upper quadrant pain. Her pain, she describes as locat ed under rib cage on both sides and her left upper quadrant pain has completely resolved, but right u pper quadrant pain has continued, but gotten better over last 2 days. She came into office with thes e complaints. She denies any fever, chills, nausea, vomiting, constipation, or diarrhea. No blood i n urine. No blood in stool. No urinary complaints. No chest pain, shortness of breath, or hemoptys is. After I evaluated her at office, she was sent to emergency room and I did call the ER physician requesting evaluation in the emergency room and after evaluation completed in the ER, the patient was admitted to the hospital with pulmonary embolism. Allergies: TO CODEINE, CAUSING FAINTING TYPE OF FEELING. ERYTHROMYCIN, CAUSED DRUG-INDUCED HEPATITI S, AND IODINE, CAUSING THROAT SWELLING. Medications: Clonazepam 0.5 mg takes half a tablet 2 times a day, estradiol 0.5 mg daily, famotidine 40 mg daily at bedtime, Ferrocite 1 tablet by mouth daily, Flonase nasal spray 1 spray each nostril 2 times a day as needed for allergies, folic acid 1 mg daily, triamterene/HCTZ 25/37.5 mg 1 tablet by mouth daily, Levsin 0.125 mg 1 tablet under tongue 3 times a day as needed, Lialda 1.2 g takes 4 tab lets daily, methotrexate 2.5 mg tablet once a week, mirtazapine 45 mg daily at bedtime, pramipexole 1 .5 mg 2 times a day, ropinirole 0.5 mg at bedtime, Biggs Thyroid 60 mg daily, zolpidem 5 mg daily at bedtime as needed for sleep. Review of Systems: GI: As mentioned above. All other systems reviewed and negative. Past Medical History: Restless legs syndrome, hypothyroidism, impaired fasting glucose, hypertension , mixed hyperlipidemia, gastroesophageal reflux disease, diverticulosis, Crohn disease, chronic kidne y disease, leg edema, iron deficiency anemia, insomnia, and osteopenia. Past Surgical History: Significant for cataract surgery, tonsillectomy, cholecystectomy, tubal ligat ion, hysterectomy, and surgery for bilateral ptosis. Family History: Parents with coronary artery disease. Sister has allergic rhinitis problem. S on has multiple sclerosis. Social History: Positive for smoking and use of alcohol occasional. Physical Examination: Vital Signs: At office, blood pressure 130/80, pulse 97, respiratory rate 18, temperature 97.8, weig ht 190 pounds, height 64 inches. General: Awake, alert, oriented, not in distress. HEENT: Head atraumatic, normocephalic. Conjunctivae nonerythematous. Sclerae white. Mouth, no thr ush or edema noted. Ears/Nose, no mass, lesion, discharge noted. Neck: Supple. No JVD, lymph nodes, bruit, thyromegaly noted. Lungs: Bilateral good equal air entry. Clear to auscultation. No rhonchi. No rales. Heart: Normal heart sounds, no murmur or gallop. Abdomen: Soft, bowel sounds normal. No guarding, rigidity, or distention. Presence of mild right u pper quadrant tenderness. Extremities: No leg edema. No calf tenderness. Skin: No rash, ulcer, cellulitis. Lymphatics: No lymph node enlargement in neck, supraclavicular, infraclavicular region. Neuro: No focal neurological deficit. Chest: Unremarkable. External Genitalia: Deferred. Rectal: Deferred. Laboratory Data: White count 7.2, hemoglobin 11.1, platelets 260. Sodium 134, potassium 3.5, chlori de 100, bicarb 28, BUN 24, creatinine 0.90, glucose 127. Liver function tests unremarkable. Troponi n 76.7. ProBNP 557. Lipase 14. Chest x-ray shows mild CHF pattern. CT scan of the chest per PE pr otocol shows evidence of acute right-sided pulmonary thromboembolism present with mild RV strain trent romero. CT scan of abdomen and pelvis was negative for any acute changes. Impression: 1.Pulmonary embolism. 2.Iron-deficiency anemia. 3.Crohn disease. 4.Restless legs syndrome. 5.Hypothyroidism. 6.Impaired fasting glucose. 7.Hypertension. 8.Mixed hyperlipidemia. 9.Gastroesophageal reflux disease. 10.Diverticulosis. 11.Insomnia. 12.Osteopenia. Plan: Admit patient to hospital for further evaluation and management of this problem. The patient is appropriate for inpatient and is expected to spend 2 midnights in hospital. We will go ahead and start the patient on Lovenox 1 mg/kg subcutaneous injection every 12 hours, first dose now, get an ec ho with Doppler tomorrow. We will also get a venous Doppler of both lower extremities. 20 mg Lasix IV x1 dose was ordered for congestive heart failure problem. Chances are likely the patient probably has diastolic heart failure, and we will see what her echocardiogram shows. For hypertension, we wi ll continue to monitor blood pressure and use medication as appropriately necessary. For restless le gs syndrome, we will continue her medications and insomnia medications will be continued also. For a nemia problem, we will just need to continue to monitor and continue iron supplement per order. I wi ll see her tomorrow for followup. The patient is on estrogen replacement therapy and obviously that will need to be discontinued in view of the presence of this blood clot. LIYA/MODL Voice ID: [id number]
[2022-12-19 02:41] LABS: Absolute Lymphocytes (CBC) 1.6 K/uL (0.7-4.9); Hematocrit 31.1 % (36.0-45.0); Lymphocytes % 28.3 % (15.3-44.8); MPV 6.7 fL (7.6-11.3); RBC Red Blood Cell Count 2.99 M/uL (3.86-4.86)
[2022-12-19 05:19] VITALS: BMI 31.9
[2022-12-19] MEDS ORDERED: POTASSIUM CL SA 10 MEQ TAB PO ONE ×2 (07:35→08:35)
[2022-12-19] MEDS ORDERED: clonazePAM 0.5 MG TAB PO PRN (07:36)
[2022-12-19] MEDS ORDERED: ENOXAPARIN 100 MG/ML SYR SQ SCH (08:00)
[2022-12-19] MEDS: THYROID 30 MG TAB PO SCH (08:00)
[2022-12-19] MEDS ORDERED: FOLIC ACID 1 MG TABLET ONE (08:35)
[2022-12-19] MEDS ORDERED: ENOXAPARIN 100 MG/ML SYR SQ ONE (08:36)
[2022-12-19] MEDS: PRAMIPEXOLE 1 MG TAB PO SCH ×2 (09:00→20:24)
[2022-12-19] MEDS: MAXZIDE (HCTZ 25/TRIAMTERENE 37.5MG) TAB PO SCH (09:00)
[2022-12-19] MEDS: FOLIC ACID 1 MG TABLET PO SCH (09:00)
[2022-12-19] MEDS ORDERED: clonazePAM 0.5 MG TAB ONE (09:20)
[2022-12-19] MEDS ORDERED: ONDANSETRON 4 MG (ODT) TAB ONE (11:55)
--- NOTE | 2022-12-19 13:05 | P.CNS ---
Date of Consult: 12/19/22 Reason for Consult: Pulmonary embolism Chief Complaint: Pleuritic chest pain History of Present Illness: Patient is 86 years of age started complaining of chest pain on the left side at around 2:30 AM then it moved to the right side and it appeared in the hospital was diagnosed to have right-sided pulmonary embolism and has been present for 2 days denies any fever no chills doing better Allergies erythromycin base [From Erythrocin] Adverse Reaction (Verified 11/06/22 08:27) Hives Iodine and Iodide Containing Produc Adverse Reaction (Verified 11/06/22 08:27) Hives/Rash Home Medications: Diphenhydramine HCl [Benadryl] 12.5 mg PO PRN 03/26/16 Famotidine 40 mg PO BEDTIME 03/26/16 Mesalamine [Lialda] 4 tab PO DAILY 03/26/16 Mirtazapine 45 mg PO BEDTIME 03/26/16 Thyroid,Pork [Schwertner Thyroid] 60 mg PO DAILY 03/26/16 clonazePAM [Klonopin] 0.125 mg PO BID 03/26/16 Pramipexole Di-HCl [Pramipexole ER] 1.5 mg PO DAILY 03/28/16 Estradiol [Estrace] 0.5 mg PO DAILY 04/23/21 Ropinirole HCl 5 tab PO EVERY 7TH DAY 04/23/21 Zolpidem Tartrate [Ambien] 0.5 - 1 tab PO BEDTIME PRN 04/23/21 Apixaban [Eliquis *] 10 mg PO BID 7 Days #14 tab 12/19/22 Apixaban [Eliquis] 5 mg PO BID 30 Days #60 tablet 12/19/22 - Past Medical/Surgical History Diabetic: No -: Restless leg syndrome -: Hypothyroidism -: HTN -: GERD -: Depression -: Anxiety -: PNA -: Crohns -: Hysterectomy -: tubal ligation -: rocco -: Adenoid excision - Social History Smoking Status: Current some day smoker Alcohol use: Yes CD- Drugs: No Caffeine use: No Review of Systems 10-point ROS is otherwise unremarkable Physical Examination Temp Pulse Resp BP Pulse Ox 97.5 F 74 18 140/72 98 12/19/22 08:00 12/19/22 08:00 12/19/22 08:00 12/19/22 08:00 12/19/22 08:00 General: Alert, In no apparent distress, Oriented x3 HEENT: Atraumatic Neck: Supple Respiratory: Clear to auscultation bilaterally Cardiovascular: No edema, Regular rate/rhythm, Normal S1 S2 Gastrointestinal: Normal bowel sounds, Soft and benign Laboratory Data (last 24 hrs) 12/18/22 16:50: Sodium 134 L, Potassium 3.5, BUN 24 H, Creatinine 0.90, Glucose 127 H, Total Bilirubin 0.5, AST 19, ALT 20, Alkaline Phosphatase 64, Lipase 14 12/18/22 16:50: WBC 7.20, Hgb 11.1 L, Hct 33.8 L, Plt Count 260 - Problems (1) Pulmonary embolism Current Visit: Yes Status: Acute Plan: Patient is 86 years of age admitted with acute PE no shaded with pleuritic chest pain patient is mildly anemic troponins mildly elevated patient has right-sided acute pulmonary embolism nominal CT scan is negative with a history of COPD changes patient is an active smoker [place] any shortness of breath patient is currently hemodynamically stable oxygenation satisfactory does not qualify for thrombolytic therapy check room air pulse ox I have called in a prescription of Eliquis patient has had idiopathic PE possible lifelong anticoagulation patient Qualifiers: Chronicity: acute Acute cor pulmonale presence: unspecified
--- NOTE | 2022-12-19 14:48 | EKG ---
Test Date: 2022-12-18 Test Time: 16:44:37 Fireproof Door Maker: JOSHUA MEASUREMENT RESULTS: Intervals: Rate: 90 IA: 198 QRSD: 88 QT: 356 QTc: 435 [place]: P: 45 IA: 198 QRS: -20 T: 64 INTERPRETIVE STATEMENTS: Normal sinus rhythm Normal ECG Compared to ECG 05/02/2021 19:41:12 Myocardial infarct finding no longer present Electronically Signed On 12-19-22 14:44:36 CDT by Gustavo Pretty
--- NOTE | 2022-12-19 19:29 | PN ---
Date of Progress Note: 12/19/2022 Subjective: Patient was seen this morning for followup. She is feeling much better this morning. D enies any chest pain, shortness of breath. Denies any abdominal pain, nausea, or vomiting. Objective: Vital Signs: Reviewed. Hemodynamically she is stable. HEENT: Unremarkable. Lungs: Clear to auscultation. Heart: Sounds normal. Abdomen: Soft, bowel sounds normal. No guarding, rigidity, tenderness, distention. Extremities: No leg edema. Laboratory Data: White count 5.8, hemoglobin 10.5, platelets 242. Sodium 136, potassium 3, chloride 100, bicarb 31, BUN 21, creatinine 0.80, glucose 107. Impression: 1.Pulmonary embolism. 2.Deep venous thrombosis, left leg, popliteal vein. 3.Restless legs syndrome. 4.Insomnia. Plan: We will go ahead and continue anticoagulation therapy. The patient will have echocardiogram t ashley. We will follow up on that result. Continue Lovenox. Home medications will be continued inclu ding her medications for restless legs syndrome and insomnia. I will see her tomorrow for followup. LIYA/MODL Voice ID: [id number] Report ID: [id number]
[2022-12-19] MEDS: APIXABAN 5 MG TABLET PO SCH (20:24)
[2022-12-19] MEDS ORDERED: ROPINIROLE HCL 0.25 MG TAB PO SCH (21:00)
[2022-12-19] MEDS ORDERED: ZOLPIDEM TARTRATE 5 MG TABLET PO SCH (21:00)
[2022-12-19] MEDS ORDERED: MIRTAZAPINE 15 MG TAB PO SCH (21:00)
[2022-12-19] MEDS ORDERED: FAMOTIDINE 20 MG TAB PO SCH (21:00)
[2022-12-20] MEDS: THYROID 30 MG TAB PO SCH (06:35)
[2022-12-20] MEDS: APIXABAN 5 MG TABLET PO SCH (08:12)
[2022-12-20] MEDS: MAXZIDE (HCTZ 25/TRIAMTERENE 37.5MG) TAB PO SCH (08:12)
[2022-12-20] MEDS: PRAMIPEXOLE 1 MG TAB PO SCH (08:12)
[2022-12-20] MEDS: FOLIC ACID 1 MG TABLET PO SCH (08:12)
[2022-12-20 12:51] VITALS: BP 142/62; TEMP 97.2
--- NOTE | 2022-12-20 13:32 | DS ---
Date of Discharge: 12/20/2022 Disposition: Discharged to go home. Physical Examination: HEENT: Unremarkable. Lungs: Clear to auscultation. Heart: Sounds normal. Abdomen: Soft. Bowel sounds normal. No guarding, rigidity, tenderness, distention. Extremities: No leg edema. Discharge Medications And Instructions: Continue all prior home medications except following changes ; 1.Stop estradiol. 2.Do not take any aspirin, Aleve, or Motrin type of medications. 3.May use Tylenol 500 mg 3 times a day as needed. 4.Start Eliquis 5 mg, the patient to take 2 tablets by mouth 2 times a day at 8 a.m. and 8 p.m. for 1 week, then lower dose and take 1 tablet by mouth 2 times a day. 5.Follow up at my office next week on Thursday or . Final Diagnoses: 1.Pulmonary embolism. 2.Left leg deep vein thrombosis, popliteal vein. 3.Iron deficiency anemia. 4.Crohn disease. 5.Hypertension. 6.Mixed hyperlipidemia. 7.Hypothyroidism. 8.Impaired fasting glucose. 9.Restless legs syndrome. 10.Gastroesophageal reflux disease. 11.Diverticulosis. 12.Insomnia. 13.Osteopenia. 14.Hypokalemia. Laboratory Data: Upon admission; sodium 134, potassium 3.5, chloride 100, bicarb 28, BUN 24, creatin ine 0.90, glucose 127. Repeat labs yesterday; sodium 136, potassium 3, chloride 100, bicarb 31, BUN 21, creatinine 0.80, glucose 107. Upon admission; white count 7.2, hemoglobin 11.1, platelets 260. Yesterday; white count 5.8, hemoglobin 10.5, platelets 242. Hospital Course: This is an 86-year-old very pleasant female patient, admitted to the hospital with pulmonary embolism and DVT of left leg. Please see dictated H and P for more information. After the patient was evaluated in the emergency room, she was admitted to the hospital and she was started on Lovenox 1 mg/kg subcutaneous injection every 12 hours. Subsequently, her anticoagulation therapy wa s changed from Lovenox to Eliquis. Dr. Hsu from Pulmonary was consulted and the patient's venou s Doppler of lower extremity had showed DVT of left popliteal vein and CT scan of the chest per PE pr otocol had shown pulmonary embolism involving right lung. The patient's condition was stable. Hemod ynamically, she was stable and we were able to discharge her today in stable condition. Her room air oxygen saturation today is 92%. Her pain that she came in with has completely resolved and she is a mbulating well and no other complaints or problems reported by her. The patient's son who lives out of state contacted me requesting information and after I obtained the patient's permission this marianela burns, I did call the patient's son and discussed all the details with him as well. The patient has bee n taking estradiol on outpatient basis for a long time and in the past, I did recommend her to discon tinue it, but she was not willing to now with this blood clot problem. She was advised that she must discontinue this medication completely from now on. Our recommendation is for her to take anticoagu lation therapy for 6 months. I have also given instruction to the patient today that she needs to ta ke appropriate precautions to avoid any kind of injury, especially while handling sharp objects like knife, razors, scissors, etc. She should take appropriate precautions to avoid any fall and head inj ury. The patient was also advised that she must report to emergency room if she has any bleeding fro m any cuts on her skin that will not stop or if she has any nosebleed or any blood in the urine or st ool or if she has any head injury. In all these cases, she should come to the emergency room for tess luation. LIYA/SIMONA Voice ID: [id number] Report ID: [id number]
[2022-12-20 17:12] VITALS: O2SAT 97
--- NOTE | 2022-12-22 11:43 | ECHO ---
HEIGHT: 5 ft 5 in WEIGHT: 192 lb 14.4 oz DATE OF STUDY: 12/19/[address]: Ezequiel Veloz MD 2-DIMENSIONAL: YES M.MODE: YES DOPPLER: YES COLOR FLOW: YES TDS: YES PORTABLE: YES DEFINITY: BUBBLE STUDY: DIAGNOSIS: PULMONARY EMBOLISM CARDIAC HISTORY: CATHERIZATION: NO SURGERY: NO PROSTHETIC VALVE: NO PACEMAKER: NO MEASUREMENTS (cm) DIASTOLIC (NORMALS) SYSTOLIC (NORMALS) IVSd 1.2 (0.6-1.2) LA Diam 2.7 (1.9-4.0) LVEF 63% LVIDd 3.6 (3.5-5.7) LVIDs 2.4 (2.0-3.5) %FS 33% LVPWd 1.2 (0.6-1.2) Ao Diam 2.2 (2.0-3.7) 2 DIMENSIONAL ASSESSMENT: RIGHT ATRIUM: NORMAL LEFT ATRIUM: NORMAL RIGHT VENTRICLE: NORMAL LEFT VENTRICLE: NORMAL TRICUSPID VALVE: NORMAL MITRAL VALVE: MITRAL ANNULAR CALCIFICATION PULMONIC VALVE: NORMAL AORTIC VALVE: SCLEROSIS PERICARDIAL EFFUSION: NONE AORTIC ROOT: NORMAL LEFT VENTRICULAR WALL MOTION: NORMAL DOPPLER/COLOR FLOW: MILD TRICUSPID REGURGITATION COMMENTS: 1. NORMAL LEFT VENTRICULAR SIZE AND FUNCTION 2. MILD TRICUSPID REGURGITATION. NORMAL RIGHT VENTRICULAR SYSTOLIC PRESSURE 3. MITRAL ANNULAR CALCIFICATION 4. AORTIC SCLEROSIS TECHNOLOGIST: ALIDA TOURE
== END 2022-12-20 14:55 | disposition home or self-care (01) | DRG 299 ==
LOC: ER 16:14 → ERHOLD 18:39 → 2ND 12-19 11:39
PROVIDERS: ADMIT Internal Medicine; ATTEND Internal Medicine
DX: I82.432 Acute embolism and thrombosis of left popliteal vein (principal); I26.99 Other pulmonary embolism without acute cor pulmonale; I50.30 Unspecified diastolic (congestive) heart failure; E87.6 Hypokalemia; I12.9 Hypertensive chronic kidney disease with stage 1 through stage 4 chronic kidney disease, or unspecified chronic kidney disease; G25.81 Restless legs syndrome; E03.9 Hypothyroidism, unspecified; N18.9 Chronic kidney disease, unspecified; E78.2 Mixed hyperlipidemia; K21.9 Gastro-esophageal reflux disease without esophagitis; K57.90 Diverticulosis of intestine, part unspecified, without perforation or abscess without bleeding; D50.9 Iron deficiency anemia, unspecified; M85.80 Other specified disorders of bone density and structure, unspecified site; F17.210 Nicotine dependence, cigarettes, uncomplicated; G47.00 Insomnia, unspecified; F32.A Depression, unspecified; F41.9 Anxiety disorder, unspecified
CPT/HCPCS: 36415; 71045; 71275; 74177; 80048; 80053; 83690; 83880; 84484; 85025; 85379; 93005; 93306; 93970; 94760; 96372; 96374; 99285; J1650; J1940; Q0162; Q9967

== ENCOUNTER 2023-01-05 07:21 | Day surgery (SDC) | payer OTHER ==
[2023-01-05] MEDS ORDERED: ACETAMINOPHEN 325 MG TABLET ONE (07:51)
[2023-01-05] MEDS ORDERED: DIPHENHYDRAMINE 25 MG TAB/CAP ONE (07:51)
[2023-01-05] MEDS ORDERED: INFLIXIMAB ABDA IV ONE (08:00)
[2023-01-05] MEDS ORDERED: NA CHLORIDE 0.9% IV ONE (08:00)
[2023-01-05] MEDS ORDERED: NA CHLORIDE 0.9% 250 ML ONE (08:05)
[2023-01-05 08:41] VITALS: BMI 32.5
[2023-01-05 09:16] VITALS: TEMP 97
[2023-01-05 10:06] VITALS: BP 162/66; O2SAT 96
== END 2023-01-05 10:26 | disposition home or self-care (01) ==
LOC: DS 07:21
PROVIDERS: ATTEND Internal Medicine Gastroenterology
DX: K50.911 Crohn's disease, unspecified, with rectal bleeding (principal)
CPT/HCPCS: 96365; 96366; Q5104; J7050 ×2

== ENCOUNTER 2023-03-02 09:28 | Day surgery (SDC) | payer OTHER ==
[2023-03-02] MEDS ORDERED: NA CHLORIDE 0.9% 250 ML ONE (09:45)
[2023-03-02] MEDS ORDERED: INFLIXIMAB ABDA IV ONE (10:00)
[2023-03-02] MEDS ORDERED: NA CHLORIDE 0.9% IV ONE (10:00)
[2023-03-02 12:24] VITALS: BMI 31.6
[2023-03-02 12:36] VITALS: BP 175/72; TEMP 97.5; O2SAT 97
== END 2023-03-02 13:05 | disposition home or self-care (01) ==
LOC: DS 09:28
PROVIDERS: ATTEND Internal Medicine Gastroenterology
DX: K50.911 Crohn's disease, unspecified, with rectal bleeding (principal)
CPT/HCPCS: 96365; 96366; Q5104; J7050 ×2

== ENCOUNTER 2023-05-01 09:05 | Day surgery (SDC) | payer OTHER ==
[2023-05-01] MEDS ORDERED: ACETAMINOPHEN 500 MG TAB ONE (09:49)
[2023-05-01] MEDS ORDERED: DIPHENHYDRAMINE 25 MG TAB/CAP ONE (09:55)
[2023-05-01] MEDS ORDERED: NA CHLORIDE 0.9% 0 ML ONE (09:58)
[2023-05-01] MEDS ORDERED: NA CHLORIDE 0.9% 250 ML ONE (09:59)
[2023-05-01] MEDS ORDERED: INFLIXIMAB ABDA IV ONE (10:00)
[2023-05-01] MEDS ORDERED: NA CHLORIDE 0.9% IV ONE (10:00)
[2023-05-01 13:09] VITALS: BMI 31.7
[2023-05-01 13:12] VITALS: BP 165/72; TEMP 97.3; O2SAT 97
== END 2023-05-01 12:30 | disposition home or self-care (01) ==
LOC: DS 09:05
PROVIDERS: ATTEND Internal Medicine Gastroenterology
DX: K50.911 Crohn's disease, unspecified, with rectal bleeding (principal)
CPT/HCPCS: 96365; 96366; Q5104; J7050 ×2

== ENCOUNTER 2023-09-02 08:37 | Day surgery (SDC) | payer OTHER ==
[2023-09-02] MEDS ORDERED: ACETAMINOPHEN 500 MG TAB ONE (08:52)
[2023-09-02] MEDS ORDERED: NA CHLORIDE 0.9% 1,000 ML ONE (08:52)
[2023-09-02] MEDS ORDERED: DIPHENHYDRAMINE 25 MG TAB/CAP ONE (08:52)
[2023-09-02] MEDS ORDERED: INFLIXIMAB IV ONE (09:00)
[2023-09-02] MEDS ORDERED: NA CHLORIDE 0.9% IV ONE (09:00)
[2023-09-02 09:49] VITALS: BMI 32.5
[2023-09-02 12:05] VITALS: BP 155/82; TEMP 96.9
[2023-09-02 12:06] VITALS: O2SAT 97
== END 2023-09-02 12:00 | disposition home or self-care (01) ==
LOC: DS 08:37
PROVIDERS: ATTEND Internal Medicine Gastroenterology
DX: K50.911 Crohn's disease, unspecified, with rectal bleeding (principal)
CPT/HCPCS: 96365; 96366; J1745; J7050; J7030

== ENCOUNTER 2023-10-28 09:41 | Day surgery (SDC) | payer OTHER ==
[2023-10-28] MEDS: DIPHENHYDRAMINE 25 MG TAB/CAP ONE (09:55)
[2023-10-28] MEDS: NA CHLORIDE 0.9% 250 ML ONE (10:10)
[2023-10-28] MEDS: INFLIXIMAB ABDA IV ONE (10:15)
[2023-10-28] MEDS: NA CHLORIDE 0.9% IV ONE (10:15)
[2023-10-28 11:12] VITALS: O2SAT 100; BMI 32.5
[2023-10-28 13:30] VITALS: BP 148/57; TEMP 97.1
== END 2023-10-28 13:00 | disposition home or self-care (01) ==
LOC: DS 09:41
PROVIDERS: ATTEND Internal Medicine Gastroenterology
DX: K50.911 Crohn's disease, unspecified, with rectal bleeding (principal)
CPT/HCPCS: 96365; 96366; Q5104; J7050 ×2

== ENCOUNTER 2024-01-01 07:30 | Day surgery (SDC) | payer OTHER ==
[2024-01-01 08:00] VITALS: BMI 32.5
[2024-01-01] MEDS: ACETAMINOPHEN 500 MG TAB ONE (08:07)
[2024-01-01] MEDS: DIPHENHYDRAMINE 25 MG TAB/CAP ONE (08:08)
[2024-01-01] MEDS: NA CHLORIDE 0.9% IV ONE (08:20)
[2024-01-01] MEDS: INFLIXIMAB ABDA IV ONE (08:20)
[2024-01-01] MEDS: NA CHLORIDE 0.9% 250 ML ONE (08:27)
[2024-01-01 11:13] VITALS: BP 146/78; TEMP 97; O2SAT 99
== END 2024-01-01 11:00 | disposition home or self-care (01) ==
LOC: DS 07:30
PROVIDERS: ATTEND Internal Medicine Gastroenterology
DX: K50.911 Crohn's disease, unspecified, with rectal bleeding (principal)
CPT/HCPCS: 96365; 96366; Q5104; J7050 ×2

== ENCOUNTER 2024-02-22 16:15 | Emergency (ER) | payer OTHER ==
[2024-02-22] MEDS ORDERED: ONDANSETRON 4 MG/2 ML VIAL ONE (17:21)
[2024-02-22] MEDS ORDERED: MORPHINE 4 MG/ML SYR ONE (17:22)
[2024-02-22 17:52] LABS: Absolute Eosinophils 0.1 K/uL (0-0.5); Absolute Neutrophil 5.7 K/uL (1.8-8.0); Basophils % 0.6 % (0-1.3); Eosinophils % 0.6 % (0-4.4); Hematocrit 34.7 % (36.0-45.0); Hemoglobin 11.5 g/dL (12.0-15.0); Lymphocytes % 13.1 % (15.3-44.8); MCH 34.8 pg (27.0-35.0); MCHC 33.3 g/dL (32.0-36.0); MCV 104.6 fL (80-100); MPV 6.9 fL (7.6-11.3); Monocytes % 13.1 % (3.3-12.3); Neutrophils % 72.6 % (41.7-73.7); Platelets 261 thou/uL (152-406); RBC Red Blood Cell Count 3.32 M/uL (3.86-4.86); Red Cell Distribution Width 14.7 % (12.1-15.2)
[2024-02-22 18:01] LABS: Specific Gravity 1.006 (1.005-1.030); Sqamous Epithelial None Seen /HPF (None Seen); Urine Bacteria None Seen /HPF (<20); Urine Bilirubin NEGATIVE (Negative); Urine Blood Negative (Negative); Urine Clarity Clear (Clear); Urine Color Colorless (Yellow); Urine Culture Reflex Order NOT NEEDED; Urine Glucose NEGATIVE (Negative); Urine Ketones NEGATIVE (Negative); Urine Microscopic Reflex YN ORDER UMIC; Urine Nitrite NEGATIVE (Negative); Urine Protein NEGATIVE (Negative); Urine RBC None Seen /HPF (None Seen); Urine Urobilinogen Normal (Normal); Urine WBC None Seen /HPF (<5); Urine pH 6.5 (5.0-7.0)
[2024-02-22 18:15] LABS: Albumin 3.5 g/dL (3.4-5.0); Albumin/Globulin Ratio 0.9 (1.1-1.8); Anion Gap 9.6 mEq/L (5.0-15.0); Bilirubin Total 0.4 mg/dL (0.2-1.0); Potassium 3.6 mEq/L (3.5-5.1); Protein, Total 7.5 g/dL (6.4-8.2)
--- NOTE | 2024-02-22 18:20 | RAD REPORT ---
EXAM DESCRIPTION: CT - Abdomen Pelvis Wo Contrast - 02/22/2024 5:54 pm CLINICAL HISTORY: Abdominal pain COMPARISON: 2022 TECHNIQUE: Computed axial tomography of the abdomen and pelvis was obtained. IV and oral contrast we re not requested. All CT scans are performed using dose optimization technique as appropriate and may include automated exposure control or mA/KV adjustment according to patient size. FINDINGS: The evaluation of solid organs, vessels and bowel is limited secondary to the lack of con trast administration. Small bilateral renal calculi. No hydronephrosis 3.6 centimeter parapelvic left renal cyst. Liver, spleen, pancreas and adrenal grossly normal Hysterectomy. No adnexal mass. No evidence of diverticulitis. Moderate amount of stool within the colon. Transverse colon measures 5.6 centimeters. Cecum 5.2 centi meters Scoliosis involves the spine. Mild to moderate anterior subluxation L4 on L5 with spondylosis through out the spine 8 millimeter stone within the common bile duct. Common bile duct is dilated. Cholecystectomy IMPRESSION: 8 millimeter stone within the common bile duct. The duct is dilated Small bilateral nonobstructing renal calculi Moderate amount of stool within the colon
--- NOTE | 2024-02-22 19:09 | ER ---
Nurse's Notes [facility] Name: Meenakshi Michele Age: 88 yrs Sex: Female : 1935 Arrival Date: 02/22/2024 Time: 16:15 Bed 14 Private MD: Diagnosis: Low back pain;Common bile duct stone Presentation: 02/21 16:41 Chief complaint: EMS states: BACK PAIN STARTED YESTERDAY. AMBULATES. PAIN NOT BETTER. db TOOK TRAMADOL AND [employer] FOR PAIN. FROM [employer] [facility]. Coronavirus screen: Client denies travel out of the [place] in the last 14 days. At this time, the client does not indicate any symptoms associated with coronavirus-19. Ebola Screen: Patient negative for fever greater than or equal to 101.5 degrees Fahrenheit, and additional compatible Ebola Virus Disease symptoms Patient denies exposure to infectious person. Patient denies travel to an Ebola-affected area in the 21 days before illness onset. No symptoms or risks identified at this time. Initial Sepsis Screen: Does the patient meet any 2 criteria? No. Patient's initial sepsis screen is negative. Does the patient have a suspected source of infection? No. Patient's initial sepsis screen is negative. Risk Assessment: Do you want to hurt yourself or someone else? Patient reports no desire to harm self or others. Onset of symptoms was February 22, 2024. 16:41 Method Of Arrival: EMS: [facility] db 16:41 Acuity: PONCHO 4 db Triage Assessment: 16:43 General: Appears in no apparent distress. comfortable, Behavior is calm, cooperative. db Pain: Complains of pain in back. Musculoskeletal: Capillary refill < 3 seconds, Range of motion: intact in all extremities. 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 - Infectious Disease History:: Denies. - Social history:: Smoking status: Patient denies any tobacco usage or history of. - Family history:: not pertinent. Screenin:47 [facility] ED Fall Risk Assessment (Adult) History of falling in the last 3 months, db including since admission No falls in past 3 months (0 pts) Confusion or Disorientation No (0 pts) Intoxicated or Sedated No (0 pts) Impaired Gait Yes (1 pt) Mobility Assist Device Used Yes (1 pt) Altered Elimination No (0 pt) Score/Fall Risk Level 0 - 2 = Low Risk Oriented to surroundings, Maintained a safe environment. Abuse screen: Denies threats or abuse. Denies injuries from another. Nutritional screening: No deficits noted. Tuberculosis screening: No symptoms or risk factors identified. Assessment: 16:47 Reassessment: Patient appears in no apparent distress at this time. Patient and/or db family updated on plan of care and expected duration. Pain level reassessed. Patient is alert, oriented x 3, equal unlabored respirations, skin warm/dry/pink. General: Appears in no apparent distress. comfortable, Behavior is calm, cooperative. Neuro: Level of Consciousness is awake, alert, obeys commands, Oriented to person, place, time, situation. 17:12 Reassessment: PT AMBULATORY TO RESTROOM. db 18:14 Reassessment: Patient appears in no apparent distress at this time. Patient and/or db family updated on plan of care and expected duration. Pain level reassessed. Patient is alert, oriented x 3, equal unlabored respirations, skin warm/dry/pink. 18:16 Reassessment: Patient states feeling better. Patient states symptoms have improved. db 21:55 Reassessment: Extended time to discharge due to finding a ride to [facility]. Pt son tl4 arranged for an Uber. Vital Signs: 16:41 Pain 10/10; db 16:41 BP 151 / 85; Pulse 81; Resp 18; Pulse Ox 94% ; db 18:16 BP 123 / 52; Pulse 70; Resp 16; Temp 98.2(O); Pulse Ox 97% on R/A; db 16:41 Pain Scale: Adult db ED Course: 16:40 Patient arrived in ED. db 16:40 Malick Jolly MD is Attending Physician. rt 16:43 Triage completed. db 16:43 Arm band placed on Patient placed in an exam room. db 17:12 Regine Combs RN is Primary Nurse. db 17:38 Initial lab(s) drawn, Urine collected: clean catch specimen, clear. Inserted saline db lock: 22 gauge in right antecubital area, using aseptic technique. Blood collected. Flushed with 10 mL NS. 17:[address] db 17:56 CT Abd/Pelvis - Without Contrast In Process Unspecified. EDMS 19:07 Talha Flores MD is Referral Physician. rt 19:08 Ezequiel Veloz MD is Referral Physician. rt 19:10 Patient has correct armband on for positive identification. Bed in low position. Call db light in reach. Side rails up X 1. Pulse ox on. NIBP on. Warm blanket given. Pillow given. 19:30 IV discontinued, intact, bleeding controlled, No redness/swelling at site. Pressure tl4 dressing applied. 21:56 No provider procedures requiring assistance completed. tl4 21:57 Provided Education on: ed process, call munguia. tl4 Administered Medications: 17:40 Drug: Ondansetron IVP 4 mg IVP once; over 2 minutes Route: IVP; Site: right antecubital;db 21:59 Follow up: Response: No adverse reaction tl4 17:40 Drug: morphine IVP or IV 4 mg IVP once over 4 mins Route: IVP; Infused Over: 4 mins; db Site: right antecubital; 21:59 Follow up: Response: No adverse reaction tl4 Medication: 21:57 VIS not applicable for this client. tl4 Outcome: 19:08 Discharge ordered by . rt 19:30 Discharged to home via wheelchair, Uber tl4 19:30 Condition: stable 19:30 Discharge instructions given to patient, Instructed on discharge instructions, follow up and referral plans. Demonstrated understanding of instructions, follow-up care, 21:59 Patient left the ED. tl4 Signatures: Dispatcher [employer] EDMS Regine Combs RN RN db Malick Jolly MD MD rt Nitin Ortez RN RN tl4
--- NOTE | 2024-02-22 19:09 | EDPHYS ---
Physician Documentation [facility] Name: Meenakshi Michele Age: 88 yrs Sex: Female : 1935 Arrival Date: 02/22/2024 Time: 16:15 Bed 14 Private MD: JODIE Physician Malick Jolly HPI: 02/21 20:29 This 88 yrs old Female presents to ER via EMS with complaints of Back Pain. rt 20:29 Patient presents to the ED with a low back pain. Patient states that her back "gave rt out." Denies injury. Denies numbness, tingling, urinary symptoms. Denies other acute complaints at this time, symptoms are moderate severity, no other aggravating or alleviating factors.. 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 - Infectious Disease History:: Denies. - Social history:: Smoking status: Patient denies any tobacco usage or history of. - Family history:: not pertinent. ROS: 20:29 Constitutional: Negative for fever, chills, and weight loss, Cardiovascular: Negative rt for chest pain, palpitations, and edema, Respiratory: Negative for shortness of breath, cough, wheezing, and pleuritic chest pain, Abdomen/GI: Negative for abdominal pain, nausea, vomiting, diarrhea, and constipation, MS/Extremity: Negative for injury and deformity, Skin: Negative for injury, rash, and discoloration, Neuro: Negative for headache, weakness, numbness, tingling, and seizure, 20:29 Back: Positive for pain at rest, pain with movement, Negative for injury or acute deformity, Exam: 20:29 Constitutional: This is a well developed, well nourished patient who is awake, alert, rt and in no acute distress. Head/Face: Normocephalic, atraumatic. Chest/axilla: Normal chest wall appearance and motion. Nontender with no deformity. No lesions are appreciated. Cardiovascular: Regular rate and rhythm with a normal S1 and S2. No gallops, murmurs, or rubs. Normal PMI, no JVD. No pulse deficits. Respiratory: Lungs have equal breath sounds bilaterally, clear to auscultation and percussion. No rales, rhonchi or wheezes noted. No increased work of breathing, no retractions or nasal flaring. Abdomen/GI: Soft, non-tender, with normal bowel sounds. No distension or tympany. No guarding or rebound. No evidence of tenderness throughout. Skin: Warm, dry with normal turgor. Normal color with no rashes, no lesions, and no evidence of cellulitis. MS/ Extremity: Pulses equal, no cyanosis. Neurovascular intact. Full, normal range of motion. Neuro: Awake and alert, GCS 15, oriented to person, place, time, and situation. Cranial nerves II-XII grossly intact. Motor strength 5/5 in all extremities. Sensory grossly intact. Cerebellar exam normal. Normal gait. 20:29 Back: Tenderness to the lower lumbar region, no step-offs, Vital Signs: 16:41 Pain 10/10; db 16:41 BP 151 / 85; Pulse 81; Resp 18; Pulse Ox 94% ; db 18:16 BP 123 / 52; Pulse 70; Resp 16; Temp 98.2(O); Pulse Ox 97% on R/A; db 16:41 Pain Scale: Adult db MDM: 16:40 Patient medically screened. rt 20:29 Differential diagnosis: Mechanical back pain, AAA, kidney stone. Data reviewed: vital rt signs, nurses notes. Consideration of Admission/Observation Escalation of care including admission/observation considered. Management of patient was discussed with the following: Primary Care Provider: Discussed with patient's PCP, pain is well-controlled in the ED. There is an incidental finding of a CBD stone with dilatation. Patient has had a cholecystectomy about 10 years ago. Unclear of chronicity or clinical significance of this. After discussion with the patient's primary care, patient is to follow-up with Dr. Chavez as an outpatient. Return precautions discussed. I considered the following discharge prescriptions or medication management in the emergency department Medications were administered in the Emergency Department. See MAR. Independent interpretation of the following test(s) in the Emergency Department CT Scan: My interpretation is No bowel obstruction, ureteral stone seen on my interpretation of CT scan images. Care significantly affected by the following chronic conditions: Crohn's disease. Counseling: I had a detailed discussion with the patient and/or guardian regarding the historical points, exam findings, and any diagnostic results supporting the discharge/admit diagnosis, lab results, radiology results, the need for outpatient follow up, to return to the emergency department if symptoms worsen or persist or if there are any questions or concerns that arise at home. Response to treatment: the patient's symptoms have resolved after treatment, the patient's pain is gone. 08 16:41 Order name: CBC with Diff; Complete Time: 17:58 rt 02/21 16:41 Order name: CMP; Complete Time: 18:16 rt 02/21 16:41 Order name: Lipase; Complete Time: 18:16 rt 02/21 17:22 Order name: Urinalysis w/ reflexes; Complete Time: 18:16 db 02/21 16:41 Order name: CT Abd/Pelvis - Without Contrast; Complete Time: 18:24 rt 02/21 16:41 Order name: IV Saline Lock; Complete Time: 17:44 rt 02/21 16:41 Order name: Labs collected and sent; Complete Time: 17:44 rt Administered Medications: 17:40 Drug: Ondansetron IVP 4 mg IVP once; over 2 minutes Route: IVP; Site: right antecubital;db 21:59 Follow up: Response: No adverse reaction tl4 17:40 Drug: morphine IVP or IV 4 mg IVP once over 4 mins Route: IVP; Infused Over: 4 mins; db Site: right antecubital; 21:59 Follow up: Response: No adverse reaction tl4 Disposition Summary: 02/22/24 19:08 Discharge Ordered Notes: Location: Home rt Problem: new rt Symptoms: have improved rt Condition: Stable rt Diagnosis - Low back pain rt - Common bile duct stone rt Followup: rt - With: Talha Flores MD - When: 1 - 2 days - Reason: Followup: rt - With: Ezequiel Veloz MD - When: 2 - 3 days - Reason: Discharge Instructions: - Discharge Summary Sheet rt - Acute Back Pain, Adult rt Forms: - Medication Reconciliation Form rt - Antibiotic Education rt - Prescription Opioid Use rt - Patient Portal Instructions rt - Leadership Thank You Letter rt Signatures: Dispatcher [employer] EDMS Regine Combs, RN RN db Malick Jolly MD MD rt Nitin Ortez RN RN tl4 Corrections: (The following items were deleted from the chart) 16:41 16:41 CBC+H.LAB.BRZ ordered. EDMS EDMS 16:41 16:41 COMPREHENSIVE METABOLIC PANEL+C.LAB.BRZ ordered. EDMS EDMS 16:41 16:41 LIPASE+C.LAB.BRZ ordered. EDMS EDMS 16:41 16:41 Abdomen Pelvis Wo Con+CT.RAD.BRZ ordered. EDMS EDMS
[2024-02-22 22:15] VITALS: BP 123/52; TEMP 98.2; O2SAT 97
== END 2024-02-22 21:59 | disposition home or self-care (01) ==
LOC: ER 16:15
DX: M54.50 Low back pain, unspecified (principal); K80.50 Calculus of bile duct without cholangitis or cholecystitis without obstruction
CPT/HCPCS: 85025; 81001; 36415; 83690; 80053; 74176; 96375; 96374; 99285; J2405

== ENCOUNTER 2024-02-28 12:40 | Inpatient (IN) | payer OTHER ==
[2024-02-28] MEDS ORDERED: methocarbamoL 750 MG TAB ONE (13:32)
[2024-02-28] MEDS ORDERED: METHYLPREDNISOLONE 125 MG INJ ONE (13:32)
[2024-02-28] MEDS ORDERED: KETOROLAC 30 MG/ML INJ ONE (13:33)
[2024-02-28 15:34] LABS: Specific Gravity 1.006 (1.005-1.030); Sqamous Epithelial <5 /HPF (None Seen); Urine Bacteria None Seen /HPF (<20); Urine Bilirubin NEGATIVE (Negative); Urine Blood Negative (Negative); Urine Clarity Clear (Clear); Urine Color Colorless (Yellow); Urine Culture Reflex Order NOT NEEDED; Urine Glucose NEGATIVE (Negative); Urine Ketones NEGATIVE (Negative); Urine Microscopic Reflex YN ORDER UMIC; Urine Nitrite NEGATIVE (Negative); Urine Protein NEGATIVE (Negative); Urine RBC <5 /HPF (None Seen); Urine Urobilinogen Normal (Normal); Urine WBC <5 /HPF (<5)
--- NOTE | 2024-02-28 15:44 | EDPHYS ---
Physician Documentation [facility] Name: Meenakshi Michele Age: 88 yrs Sex: Female : 1935 Arrival Date: 02/28/2024 Time: 12:40 Bed 15 Private MD: ED Physician Franki Rodríguez HPI: 02/27 13:38 This 88 yrs old Female presents to ER via EMS with complaints of Hip Pain. jr8 13:38 Onset: The symptoms/episode began/occurred acutely, last week. Modifying factors: The jr8 symptoms are alleviated by remaining still, the symptoms are aggravated by flexion, weight bearing. Associated signs and symptoms: Pertinent positives: None. Severity of symptoms: At their worst the symptoms were moderate, in the emergency department the symptoms have improved, moderately. The patient has experienced similar episodes in the past, chronically. The patient has been recently seen at the [facility] Emergency Department, last week, for similar complaints labs were performed, CT scan was performed. 88-year-old female patient presents emergency room with complaints of low back pain rating down the left leg. Was seen last week in the emergency room and had labs and CT done without acute findings. Was given pain medicine at that time and discharged home. Patient stated that it still intermittently hurting her. Currently while remaining still feeling okay.. Historical: - Allergies: 13:02 Erythromycin; kj2 13:02 Iodine (Anaphylaxis); kj2 - Home Meds: 13:02 Ambien 5 mg Oral tablet as needed [Active]; kj2 - PMHx: 16:43 Pulmonary Embolism; Hypertensive disorder; hb - Immunization history:: Adult Immunizations unknown. - Infectious Disease History:: Denies. - Social history:: Smoking status: Patient/guardian denies using. ROS: 13:38 Eyes: Negative for injury, pain, redness, and discharge, ENT: Negative for injury, jr8 pain, and discharge, Neck: Negative for injury, pain, and swelling, Cardiovascular: Negative for chest pain, palpitations, and edema, Respiratory: Negative for shortness of breath, cough, wheezing, and pleuritic chest pain, Abdomen/GI: Negative for abdominal pain, nausea, vomiting, diarrhea, and constipation, MS/Extremity: Negative for injury and deformity, Skin: Negative for injury, rash, and discoloration, Neuro: Negative for headache, weakness, numbness, tingling, and seizure, 13:38 Back: Positive for pain at rest, pain with movement, radiated pain, of the left low back, Exam: 13:38 Constitutional: This is a well developed, well nourished patient who is awake, alert, jr8 and in no acute distress. Eyes: Pupils equal round and reactive to light, extra-ocular motions intact. Lids and lashes normal. Conjunctiva and sclera are non-icteric and not injected. Cornea within normal limits. Periorbital areas with no swelling, redness, or edema. Neck: Trachea midline, no thyromegaly or masses palpated, and no cervical lymphadenopathy. Supple, full range of motion without nuchal rigidity, or vertebral point tenderness. No Meningismus. Cardiovascular: Regular rate and rhythm with a normal S1 and S2. No gallops, murmurs, or rubs. Normal PMI, no JVD. No pulse deficits. Respiratory: Lungs have equal breath sounds bilaterally, clear to auscultation and percussion. No rales, rhonchi or wheezes noted. No increased work of breathing, no retractions or nasal flaring. Abdomen/GI: Soft, non-tender, with normal bowel sounds. No distension or tympany. No guarding or rebound. No evidence of tenderness throughout. Skin: Warm, dry with normal turgor. Normal color with no rashes, no lesions, and no evidence of cellulitis. MS/ Extremity: Pulses equal, no cyanosis. Neurovascular intact. Full, normal range of motion. Neuro: Awake and alert, GCS 15, oriented to person, place, time, and situation. Cranial nerves II-XII grossly intact. Motor strength 5/5 in all extremities. Sensory grossly intact. 13:38 Back: pain, that is mild, of the left low back, ROM is painful, with flexion, normal spinal alignment noted, CVA tenderness, is absent, vertebral tenderness, is not appreciated, Vital Signs: 13:00 BP 175 / 82; Pulse 87; Resp 20; Temp 98.7; Pulse Ox 99% on R/A; kj2 13:03 BP 175 / 82; Pulse 87; Resp 20; Temp 98.7; Pulse Ox 99% on R/A; kj2 13:45 BP 114 / 70; Pulse 78; Resp 20; Temp 98; Pulse Ox 97% on R/A; kj2 16:30 BP 134 / 69; Pulse 82; Resp 18; Pulse Ox 95% on R/A; cm10 16:43 BP 134 / 69; Pulse 71; Resp 18; Temp 98.2; Pulse Ox 99% on R/A; kj2 17:00 BP 154 / 87; Pulse 80; Resp 16; Pulse Ox 96% on R/A; cm10 MDM: 13:02 Patient medically screened. 8 15:39 Differential diagnosis: arthritis, strain, stenosis, fracture, herniation. Data [facility] reviewed: vital signs, nurses notes, lab test result(s), radiologic studies, plain films. Consideration of Admission/Observation Patient was admitted/placed on observation. Management of patient was discussed with the following: Primary Care Provider: Dr. Veloz consulted and would like to observe patient and have MRI completed. Will admit to hospitalist overnight . Counseling: I had a detailed discussion with the patient and/or guardian regarding the historical points, exam findings, and any diagnostic results supporting the discharge/admit diagnosis, lab results, radiology results, the need for further work-up and treatment in the hospital. 02/27 14:20 Order name: Urinalysis w/ reflexes; Complete Time: 15:39 [facility] 02/27 15:20 Order name: CBC with Diff; Complete Time: 16:01 [facility] 02/27 15:20 Order name: Basic Metabolic Panel [facility] 02/27 16:00 Order name: Thyroid Stimulating Hormone EDMS 02/27 16:00 Order name: CBC with Automated Diff EDMS 02/27 16:00 Order name: CBC with Automated Diff EDMS 02/27 16:00 Order name: CBC with Automated Diff EDMS 02/27 16:00 Order name: Comprehensive Metabolic Panel EDMS 02/27 16:00 Order name: Comprehensive Metabolic Panel EDMS 02/27 16:00 Order name: Comprehensive Metabolic Panel EDMS 02/27 16:00 Order name: Magnesium EDMS 02/27 16:00 Order name: Magnesium EDMS 02/27 16:00 Order name: Magnesium EDMS 02/27 16:00 Order name: Phosphorus EDMS 02/27 16:00 Order name: Phosphorus EDMS 02/27 16:00 Order name: Phosphorus EDMS 02/27 16:00 Order name: Protime (+INR) EDMS 02/27 16:00 Order name: Protime (+INR) EDMS 02/27 17:07 Order name: C-Reactive Protein [facility]CA 02/27 17:07 Order name: Thyroid Stimulating Hormone [facility] 02/27 15:19 Order name: XRAY Lumbar Spine (3 Views) jr8 02/27 15:19 Order name: XRAY Thoracic Spine (Ap/lat) jr8 02/27 16:00 Order name: Lumbar Spine Wo Con [facility] 02/27 16:38 Order name: RAD; Complete Time: 16:41 EDMS 02/27 16:39 Order name: RAD; Complete Time: 16:41 EDMS 02/27 15:20 Order name: IV; Complete Time: 16:27 jr8 02/27 16:01 Order name: Labs - recollect needed: recollect green top; Complete Time: 16:43 eb Administered Medications: 13:40 Drug: MethylPREDNISolone Sodium Succinate IM 125 mg IM once Route: IM; Site: right kj2 vastus lateralis; 13:58 Follow up: Response: No adverse reaction kj2 13:42 Drug: Ketorolac IM 30 mg IM once Route: IM; Site: left vastus lateralis; kj2 13:58 Follow up: Response: No adverse reaction; Pain is decreased kj2 13:44 Drug: Methocarbamol PO 750 mg PO once Route: PO; kj2 13:57 Follow up: Response: No adverse reaction; Pain is decreased kj2 Disposition Summary: 02/28/24 15:43 Hospitalization Ordered Notes: Hospitalization Status: Observation jr Provider: Sabrina Pelletier Location: Telemetry/MedSurg (observation) [facility] Condition: Stable jr Problem: new jr8 Symptoms: have improved jr8 Bed/Room Type: Standard [facility] Room Assignment: 221(02/28/24 16:33) ja1 Diagnosis - Low back pain jr8 - Unspecified abnormalities of gait and mobility [facility] Forms: - Medication Reconciliation Form jr8 - SBAR form jr8 - Leadership Thank You Letter jr8 Addendum: 03/03/2024 01:15 Co-signature as Attending Physician, Franki Rodríguez MD I agree with the assessment and c marte plan of care. Signatures: Dispatcher [employer] Franki Frances MD MD cha Roszak, Josh, PA PA jr8 Raven Parmar, RN RN Tutu Lopes RN RN ja1 Louise Wallace Krystal, RN RN kj2 Corrections: (The following items were deleted from the chart) 02/27 13:03 13:02 PMHx: chron's disease; kj2 kj2 13:03 13:02 PSHx: Cholecystectomy; kj2 kj2 13:03 13:02 PSHx: tubal ligation; kj2 kj2 13:03 13:02 PSHx: Tonsillectomy; kj2 kj2 13:03 13:02 PSHx: Adenoid excision; kj2 kj2 16:28 15:43 jr8 eb 16:33 16:28 [facility] ja1
--- NOTE | 2024-02-28 15:44 | ER ---
Nurse's Notes [facility] Name: Meenakshi Michele Age: 88 yrs Sex: Female : 1935 Arrival Date: 02/28/2024 Time: 12:40 Bed 15 Private MD: Diagnosis: Low back pain;Unspecified abnormalities of gait and mobility Presentation: 02/27 13:00 Chief complaint: EMS states: PAIN IN LEFT HIP THAT RADIATES DOWN TO KNEE. Coronavirus kj2 screen: Client denies travel out of the [place] in the last 14 days. At this time, the client does not indicate any symptoms associated with coronavirus-19. Ebola Screen: No symptoms or risks identified at this time. Initial Sepsis Screen: Does the patient meet any 2 criteria? No. Patient's initial sepsis screen is negative. Does the patient have a suspected source of infection? No. Patient's initial sepsis screen is negative. Risk Assessment: Do you want to hurt yourself or someone else? Patient reports no desire to harm self or others. Onset of symptoms was February 28, 2024. 13:00 Method Of Arrival: EMS: [facility] kj2 13:00 Acuity: PONCHO 3 kj2 Triage Assessment: 16:45 General: Appears in no apparent distress. comfortable, Behavior is calm, cooperative. kj2 Historical: - Allergies: 13:02 Erythromycin; kj2 13:02 Iodine (Anaphylaxis); kj2 - Home Meds: 13:02 Ambien 5 mg Oral tablet as needed [Active]; kj2 - PMHx: 16:43 Pulmonary Embolism; Hypertensive disorder; hb - Immunization history:: Adult Immunizations unknown. - Infectious Disease History:: Denies. - Social history:: Smoking status: Patient/guardian denies using. Screenin:43 [facility] ED Fall Risk Assessment (Adult) History of falling in the last 3 months, kj2 including since admission No falls in past 3 months (0 pts) Confusion or Disorientation No (0 pts) Intoxicated or Sedated No (0 pts) Impaired Gait Yes (1 pt) Mobility Assist Device Used Yes (1 pt) Altered Elimination No (0 pt) Score/Fall Risk Level 0 - 2 = Low Risk. Abuse screen: Denies threats or abuse. Denies injuries from another. Nutritional screening: No deficits noted. Tuberculosis screening: No symptoms or risk factors identified. Assessment: 13:03 General: SEE TRIAGE ASSESSMENT. Pain: Complains of pain in LEFT HIP RADIATES DOWN TO kj2 KNEE Pain radiates to LEFT KNEE Pain currently is 8 out of 10 on a pain scale. Neuro: Level of Consciousness is awake, alert, obeys commands, Oriented to person, place, situation. Cardiovascular: Patient's skin is warm and dry. Respiratory: Airway is patent Respiratory effort is unlabored. GI: No deficits noted. : No deficits noted. 15:16 Reassessment: Patient appears in no apparent distress at this time. Patient and/or kj2 family updated on plan of care and expected duration. Pain level reassessed. Patient is alert, oriented x 3, equal unlabored respirations, skin warm/dry/pink. 16:45 Reassessment: Patient appears in no apparent distress at this time. Patient and/or kj2 family updated on plan of care and expected duration. Pain level reassessed. Patient is alert, oriented x 3, equal unlabored respirations, skin warm/dry/pink. Vital Signs: 13:00 BP 175 / 82; Pulse 87; Resp 20; Temp 98.7; Pulse Ox 99% on R/A; kj2 13:03 BP 175 / 82; Pulse 87; Resp 20; Temp 98.7; Pulse Ox 99% on R/A; kj2 13:45 BP 114 / 70; Pulse 78; Resp 20; Temp 98; Pulse Ox 97% on R/A; kj2 16:30 BP 134 / 69; Pulse 82; Resp 18; Pulse Ox 95% on R/A; cm10 16:43 BP 134 / 69; Pulse 71; Resp 18; Temp 98.2; Pulse Ox 99% on R/A; kj2 17:00 BP 154 / 87; Pulse 80; Resp 16; Pulse Ox 96% on R/A; cm10 ED Course: 12:52 Patient arrived in ED. cm10 12:59 Corinna Garcia, ALKA is Primary Nurse. kj2 13:02 Triage completed. kj2 13:02 Segun Forbes PA is PHCP. jr8 13:02 Franki Rodríguez MD is Attending Physician. jr8 15:42 Sabrina Pelletier MD is Hospitalizing Provider. jr8 16:29 Lab(s) recollected, by me, sent to lab. Inserted saline lock: 22 gauge in left forearm, cm10 using aseptic technique. Blood collected. Flushed with 10 mL NS. 16:44 Patient has correct armband on for positive identification. Placed in gown. Call light kj2 in reach. Side rails up X 1. Adult w/ patient. Provided Education on: CALL LIGHT, FALL PRECAUTIONS. 16:44 Arm band placed on. kj2 16:48 Report faxed at [phone]. Confirmed received at 1646 by [facility] 17:21 No provider procedures requiring assistance completed. Patient admitted, IV remains in cm10 place. Administered Medications: 13:40 Drug: MethylPREDNISolone Sodium Succinate IM 125 mg IM once Route: IM; Site: right kj2 vastus lateralis; 13:58 Follow up: Response: No adverse reaction kj2 13:42 Drug: Ketorolac IM 30 mg IM once Route: IM; Site: left vastus lateralis; kj2 13:58 Follow up: Response: No adverse reaction; Pain is decreased kj2 13:44 Drug: Methocarbamol PO 750 mg PO once Route: PO; kj2 13:57 Follow up: Response: No adverse reaction; Pain is decreased kj2 Medication: 16:44 VIS not applicable for this client. kj2 Outcome: 15:43 Decision to Hospitalize by Provider. naomie 17:21 Admitted to Med/surg accompanied by nurse, via stretcher, room 221, 10 17:21 Condition: good 17:21 Instructed on the need for admit, 17:24 Patient left the ED. 10 Signatures: Segun Forbes PA PA jr8 Raven Parmar, ALKA RUCKER Evi Kraft RN RN 10 Corinna Garcia, ALKA RN kj2 Corrections: (The following items were deleted from the chart) 13:03 13:02 PMHx: chron's disease; kj2 kj2 13:03 13:02 PSHx: Cholecystectomy; kj2 kj2 13:03 13:02 PSHx: tubal ligation; kj2 kj2 13:03 13:02 PSHx: Tonsillectomy; kj2 kj2 13:03 13:02 PSHx: Adenoid excision; kj2 kj2
[2024-02-28 15:56] LABS: Absolute Basophils 0.1 K/uL (0-0.5); Absolute Lymphocytes (CBC) 1.1 K/uL (0.7-4.9); Absolute Neutrophil 6.3 K/uL (1.8-8.0); Basophils % 0.7 % (0-1.3); Hematocrit 34.2 % (36.0-45.0); Hemoglobin 11.3 g/dL (12.0-15.0); Lymphocytes % 13.5 % (15.3-44.8); MCH 34.3 pg (27.0-35.0); MCHC 33.1 g/dL (32.0-36.0); MCV 103.6 fL (80-100); MPV 6.6 fL (7.6-11.3); Monocytes % 11.8 % (3.3-12.3); Nucleated Red Blood Cells % 0.1 % (0-0); Platelets 360 thou/uL (152-406); Red Cell Distribution Width 14.8 % (12.1-15.2)
--- NOTE | 2024-02-28 16:14 | P.HP ---
Certification for Inpatient Patient admitted to: Inpatient With expected LOS: >2 Midnights Patient will require the following post-hospital care: Other (Inpatient rehab versus home health) Practitioner: I am a practitioner with admitting privileges, knowledge of patient current condition, hospital course, and medical plan of care. Services: Services provided to patient in accordance with Admission requirements found in Title 42 Section 412.3 of the Code of Federal Regulations <Fay Palomo - Last Filed: 02/28/24 16:32> Patient History Date of Service: 02/28/24 Reason for admission: unsteady gait, intractable back pain History of Present Illness: Ms. Michele is an 88 yo with a PMH of restless leg syndrome, hypothyroidism, impaired fasting glucose, hypertension, mixed hyperlipidemia, gastroesophageal reflux disease, diverticulosis, Crohn disease, chronic kidney disease, leg edema, iron deficiency anemia, insomnia, osteopenia, and PE. She presented to the emergency department on 02/22/24 with a complaint of low back pain. Labs and urine at that time were unremarkable, including negative transaminase findings, normal bilirubin level, and a lipase of 17. She had a CT of her abdomen and pelvis showing an 8 mm stone within the common bile duct. Some ductal dilatation. Small bilateral nonobstructing renal calculi and a moderate amount of stool within the colon. She was treated with morphine and Zofran in the emergency department and sent home to follow-up with her PCP and Dr. Flores. No prescriptions were given for home. She returned to the emergency department today 02/28/2024 with complaints of unsteady gait and continued back/left hip pain. Today's laboratory evaluation is pending, urine remains negative, x-rays of the T-spine and L-spine were performed and a CT of the L-spine was done. Awaiting results. She was given methylprednisolone 125 mg IM, Toradol 30 mg IM and methocarbamol 750 mg p.o. in the emergency department. We will admit her for a MRI in the a.m. secondary to gait disturbance and lumbar and left hip pain. Home medications list reviewed: Yes - Past Medical/Surgical History Diabetic: No -: Restless leg syndrome -: Hypothyroidism -: HTN -: GERD -: Depression -: Anxiety -: PNA -: Crohn's - remicade infusions -: PE -: Hysterectomy -: tubal ligation -: rocco -: Adenoid excision Psychosocial/ Personal History: Ms. Michele is . Lives at [facility]. Has a Son who lives in [place]. - Family History Family History: Reviewed- Non-Contributory - Social History Smoking Status: Never smoker Alcohol use: Yes CD- Drugs: No Caffeine use: No <Fay Palomo - Last Filed: 02/28/24 16:32> Date of Service: 02/28/24 <Sabrina Pelletier - Last Filed: 02/28/24 17:56> Allergies erythromycin base [From Erythrocin] Adverse Reaction (Verified 02/28/24 17:40) Hives Iodine and Iodide Containing Produc Adverse Reaction (Verified 02/28/24 17:40) Hives/Rash Home Medications: Diphenhydramine HCl [Benadryl] 12.5 mg PO PRN 03/26/16 Famotidine 40 mg PO BEDTIME 03/26/16 Mesalamine [Lialda] 4 tab PO DAILY 03/26/16 Mirtazapine 45 mg PO BEDTIME 03/26/16 Thyroid,Pork [Wellborn Thyroid] 60 mg PO DAILY 03/26/16 clonazePAM [Klonopin] 0.125 mg PO BID 03/26/16 Pramipexole Di-HCl [Pramipexole ER] 1.5 mg PO DAILY 03/28/16 Ropinirole HCl 5 tab PO EVERY 7TH DAY 04/23/21 Zolpidem Tartrate [Ambien] 0.5 - 1 tab PO BEDTIME PRN 04/23/21 Apixaban [Eliquis] 5 mg PO BID 30 Days #60 tablet 12/19/22 Review of Systems 10-point ROS is otherwise unremarkable General: Weakness, As per HPI Musculoskeletal: Back Pain, Other (Left hip pain) Neurological: Other (Unsteady gait) <Fay Palomo - Last Filed: 02/28/24 16:32> Physical Examination - Physical Exam General: Alert, In no apparent distress, Oriented x3, Cooperative, Obese HEENT: Atraumatic, Normocephalic Neck: Supple, JVD not distended Respiratory: Normal air movement Cardiovascular: No edema, Normal pulses, Regular rate/rhythm Capillary refill: <2 Seconds Gastrointestinal: Soft and benign Musculoskeletal: No clubbing Integumentary: No rashes Neurological: Sensation intact, Normal affect, Other (stuttering movements upper body noted) Lymphatics: No axilla or inguinal lymphadenopathy External genitalia: Deferred Rectal: Deferred - Studies Laboratory Data (last 24 hrs) 02/28/24 15:40 WBC 8.50 Hgb 11.3 L Hct 34.2 L Plt Count 360 <Malissa Palomogarry Courtney - Last Filed: 02/28/24 16:32> - Studies Laboratory Data (last 24 hrs) 02/28/24 15:40 WBC 8.50 Hgb 11.3 L Hct 34.2 L Plt Count 360 <ChrisHarjit chaneythmojanene Gigi - Last Filed: 02/28/24 17:56> Assessment and Plan - Plan Acute back and left hip pain Robaxin Pain control Offloading/positioning Neurovascular status every 4 hours MRI of the L-spine Acute gait disturbance Fall precautions Air mattress Skin protection measures PT assessment/consult Chronic medical problems: Hypertension Mixed hyperlipidemia Crohn's Hypothyroidism DVT/GI prophylaxis History of PE- Eliquis/Protonix Teds Discharge Plan: Home Plan to discharge in: 24 Hours - Advance Directives Does patient have a Living Will: No Does patient have a Durable POA for Healthcare: No <Fay Palomo - Last Filed: 02/28/24 16:32> - Plan Pt seen and examined. I agree with the note by the EMISSION SPECIALIST. Pt is an 88 yo Female with restless leg syndrome, hypothyroidism, impaired fasting glucose, hypertension, mixed hyperlipidemia, gastroesophageal reflux disease, diverticulosis, Crohn disease, chronic kidney disease, leg edema, iron deficiency anemia, insomnia, osteopenia, and PE who presents with low back pain and gait imbalance. Of note, pt recently presented in the ER with low back pain on 02/22/24 and had unremarkable UA and CT abd. ER physician contacted Dr. Veloz who recommended observation overnight for MRI of lumbar spine. Lab studies show wbc 8.5, Hgb 11.2, and Platelet count of 360. thoracic x-ray shows moderate to severe degenerate disc disease is present in the lower thoracic levels. This is most notable at T11-12 and T12-L1. Dextroscoliotic curvature centered at L2. Lumbar x-ray shows and advanced degenerative disc disease noted. Grade 1 anterolisthesis of L4 on L5. Approximately 3 millimeters of retrolisthesis of L1 on L2. Dextroscoliotic curvature centered at L2-3. BMP is pending. At bedside, pt is in NAD. A/P: Low back pain: Will continue prn pain med. Will do lumbar spine MRI Gait imbalance: Will continue fall precaution. Will check vitamin D level. Continue home meds for other chronic medical problems. DVT ppx: SCD Code: full <Sabrina Pelletier - Last Filed: 02/28/24 17:56>
[2024-02-28] MEDS ORDERED: MORPHINE 4 MG/ML SYR IV PRN (16:34)
--- NOTE | 2024-02-28 16:37 | RAD REPORT ---
EXAM DESCRIPTION: RAD - Lumbar Spine 3 Views - 02/28/2024 4:06 pm CLINICAL HISTORY: PAIN COMPARISON: Lumbar Spine 3 Views dated 12/08/2016; Thoracic Spine Ap/Lat dated 02/28/2024 FINDINGS/IMPRESSION: No acute fracture of the lumbar spine. Advanced degenerative disc disease noted . Grade 1 anterolisthesis of L4 on L5. Approximately 3 millimeters of retrolisthesis of L1 on L2. Dex troscoliotic curvature centered at L2-3.
--- NOTE | 2024-02-28 16:39 | RAD REPORT ---
EXAM DESCRIPTION: RAD - Thoracic Spine Ap/Lat - 02/28/2024 4:06 pm CLINICAL HISTORY: PAIN COMPARISON: Lumbar Spine 3 Views dated 02/28/2024; Abdomen Pelvis Wo Contrast dated 02/22/2024 FINDINGS/IMPRESSION: No acute fracture of the thoracic spine. Moderate to severe degenerate disc dis ease is present in the lower thoracic levels. This is most notable at T11-12 and T12-L1. Dextroscolio tic curvature centered at L2.
[2024-02-28 17:07] LABS: Anion Gap 10.1 mEq/L (5.0-15.0); C-Reactive Protein 51.5 mg/L (<3.00); Potassium 4.1 mEq/L (3.5-5.1); Thyroid Stimulating Hormone 0.982 uIU/mL (0.358-3.740)
[2024-02-28] MEDS: HYDRALAZINE HCL 20 MG/ML VIAL IV PRN (18:04)
[2024-02-28] MEDS: NA CHLORIDE 0.9% 1,000 ML IV SCH (19:54)
[2024-02-28] MEDS ORDERED: HOME MED 1 EA UNK (Mirtazapine [Mirtazapine] 45 MG Tablet) PO SCH (21:00)
[2024-02-28] MEDS: INSULIN REGULAR (HUMAN) 100 UNIT/ML SQ SCH (21:00)
[2024-02-28] MEDS: HOME MED 1 EA UNK (Ropinirole Hcl [Ropinirole Hcl] 0.5 MG Tablet) PO SCH (21:00)
[2024-02-28] MEDS: MIRTAZAPINE 15 MG TAB PO SCH (21:16)
[2024-02-28] MEDS: ROPINIROLE HCL 0.25 MG TAB PO SCH (21:17)
[2024-02-28] MEDS: PRAMIPEXOLE 1 MG TAB PO SCH (21:17)
[2024-02-28] MEDS: APIXABAN 5 MG TABLET PO SCH (21:17)
[2024-02-28] MEDS: clonazePAM 0.5 MG TAB PO PRN (21:24)
[2024-02-29 01:30] VITALS: BMI 29.8
[2024-02-29] MEDS: THYROID 30 MG TAB PO SCH (06:00)
[2024-02-29 06:32] LABS: Absolute Eosinophils 0.1 K/uL (0-0.5); Absolute Lymphocytes (CBC) 1.4 K/uL (0.7-4.9); Absolute Monocytes 1.1 K/uL (0.1-1.3); Absolute Neutrophil 4.1 K/uL (1.8-8.0); Basophils % 0.4 % (0-1.3); Eosinophils % 0.9 % (0-4.4); Hematocrit 31.5 % (36.0-45.0); Hemoglobin 10.3 g/dL (12.0-15.0); Lymphocytes % 21.5 % (15.3-44.8); MCH 34.2 pg (27.0-35.0); MCHC 32.9 g/dL (32.0-36.0); MCV 103.9 fL (80-100); MPV 6.7 fL (7.6-11.3); Monocytes % 16.1 % (3.3-12.3); Neutrophils % 61.1 % (41.7-73.7); Platelets 347 thou/uL (152-406); RBC Red Blood Cell Count 3.03 M/uL (3.86-4.86); Red Cell Distribution Width 14.6 % (12.1-15.2)
[2024-02-29 06:43] LABS: PT Prothrombin Time 15.9 SECONDS (9.4-12.5); Protime INR 1.43
[2024-02-29 06:46] LABS: Albumin 2.8 g/dL (3.4-5.0); Albumin/Globulin Ratio 0.7 (1.1-1.8); Anion Gap 4.7 mEq/L (5.0-15.0); Bilirubin Total 0.4 mg/dL (0.2-1.0); Globulin 3.8 g/dL (2.3-3.5); Magnesium 2.3 mg/dL (1.6-2.4); Phosphorus 4.4 mg/dL (2.5-4.9); Potassium 3.7 mEq/L (3.5-5.1); Protein, Total 6.6 g/dL (6.4-8.2)
[2024-02-29] MEDS: MAGNESIUM HYDROXIDE 8% 30 ML PO PRN (08:08)
[2024-02-29] MEDS: FOLIC ACID 1 MG TABLET PO SCH (08:09)
[2024-02-29] MEDS: MAXZIDE (HCTZ 25/TRIAMTERENE 37.5MG) TAB PO SCH (08:10)
[2024-02-29] MEDS: MESALAMINE 1.2 GM PO SCH (08:10)
--- NOTE | 2024-02-29 08:13 | P.PN ---
Date of Service: 02/29/24 subjective Complaint of unsteady gait,PT to eval Review of Systems 10-point ROS is otherwise unremarkable General: Weakness, As per HPI Musculoskeletal: Back Pain, Other (Left hip pain) Neurological: Other (Unsteady gait) Physical Examination - Physical Exam General: Alert, In no apparent distress, Oriented x3, Cooperative, Obese HEENT: Atraumatic, Normocephalic Neck: Supple, JVD not distended Respiratory: Normal air movement Cardiovascular: No edema, Normal pulses, Regular rate/rhythm Capillary refill: <2 Seconds Gastrointestinal: Soft and benign Musculoskeletal: No clubbing Integumentary: No rashes Neurological: Sensation intact, Normal affect, Other (stuttering movements upper body noted) Lymphatics: No axilla or inguinal lymphadenopathy External genitalia: Deferred Rectal: Deferred Assessment and Plan - Plan Acute back and left hip pain Osteopenia Unsteady gait Chronic anticoagulation Eliquis Increased risk for falls, increased risk for bleeding on Eliquis Robaxin Pain control Offloading/positioning Neurovascular status every 4 hours MRI of the L-spine MRI of lumbar spine. thoracic x-ray shows moderate to severe degenerate disc disease is present in the lower thoracic levels. This is most notable at T11-12 and T12-L1. Dextroscoliotic curvature centered at L2. Lumbar x-ray shows and advanced degenerative disc disease noted. Grade 1 anterolisthesis of L4 on L5. Approximately 3 millimeters of retrolisthesis of L1 on L2. Dextroscoliotic curvature centered at L2-3 Fall precautions Air mattress Skin protection measures PT assessment/consult Dysphagia Speech therapy eval Barium swallow study ordered Iron deficiency anemia Hgb 11.2, and Platelet count of 360. Trend H&H Diabetes unknown control Sliding scale Hypertension Mixed hyperlipidemia Crohn's Hypothyroidism Resume appropriate home DVT/GI prophylaxis Eliquis History of PE- Eliquis/Protonix Teds Discharge Plan: Home Plan to discharge in: 24 Hours Time spent with patient 30 minutes - Advance Directives Does patient have a Living Will: No Does patient have a Durable POA for Healthcare: No
[2024-02-29] MEDS ORDERED: HOME MED 1 EA UNK (Thyroid,Pork [Armour Thyroid] 60 MG Tablet) PO SCH (09:00)
[2024-02-29] MEDS ORDERED: PRAMIPEXOLE DI HCL 1.5 MG PO SCH (09:00)
--- NOTE | 2024-02-29 14:53 | RAD REPORT ---
EXAM DESCRIPTION: MRI - Lumbar Spine Wo Tru - 02/29/2024 2:23 pm CLINICAL HISTORY: unsteady gait, increased pain COMPARISON: Lumbar Spine 3 Views dated 02/28/2024 TECHNIQUE: Multiplanar multisequence MRI of the lumbar spine performed, without Intravenous gadolini um contrast. FINDINGS: Preserved lumbar lordosis. Grade 1 anterolisthesis of L4 over L5 measuring 7 mm and L5 ove r S1 measuring 5 mm, with moderate to advanced disc height loss and endplate remodeling. Vertebral b melina heights are well maintained. Multilevel Modic type marrow degenerative changes. No other suspicio us marrow signal. Multilevel facet degenerative changes contribute to the findings below. No paraspin al masses or edema. Conus terminates at the appropriate level. Cauda equina roots are unremarkable, with no clumping or t hickening. T12-L1: marked disc height loss. Circumferential disc bulge. No significant central canal or foramina l stenosis. L1-L2: Broad-based posterior disc bulge. No central canal stenosis. Mild right neural foraminal narro wing. L2-L3: Mild disc height loss with fluid signal intensity within the disc space, favored to be degener ative. Broad-based posterior disc bulge with superimposed central small disc extrusion and asymmetric right subarticular/ foraminal disc protrusion. Facet arthropathy and ligamentum flavum buckling cont ribute to overall mild central canal stenosis. [id number] left neural foraminal narrowing. L3-L4 level: Broad-based posterior disc bulge with superimposed central disc extrusion. Mild effaceme nt of the ventral CSF space. Crescentic T1 hypointense, T2 hyperintense structure measuring 1 cm flakita g the right central through subarticular zone opposite L3 may represent a discal cyst versus intrinsi c synovial cyst, and results in asymmetric right lateral recess narrowing. Canal is otherwise patent. Mild bilateral neural foraminal narrowing. L4-L5 level: Broad-based disc bulge with central disc extrusion. Mild left and moderate to severe rig ht neural foraminal narrowing. L5-S1 level: Broad-based disc bulge with central disc extrusion. Moderate central canal stenosis just above L5-S1 level, in part relating to the ongoing anterolisthesis and ligamentum flavum buckling. M ild bilateral neural foraminal narrowing. IMPRESSION: Advanced spondylotic lumbar spine changes as detailed above, with moderate central canal stenosis just above the L5-S1 level, and mild central canal stenosis at L2-3. Asymmetric right lateral recess narrowing at L3-4 due to a 1 cm central/subarticular zone cystic stru cture which may represent a discal cyst versus intrinsic synovial cyst. Please correlate for symptoms in the descending right L4 nerve root distribution. Variable degrees of neural foraminal narrowing, most pronounced at L4-5 on the right.
--- NOTE | 2024-02-29 15:07 | RAD REPORT ---
EXAM DESCRIPTION: MRI - Cholangiogram - 02/29/2024 2:23 pm CLINICAL HISTORY: Concern for CBD stone on recent CT. Choledocholithiasis COMPARISON: Mri Abdomen W/Wo Cont dated 02/27/2020; Abdomen Pelvis Wo Contrast dated 02/22/2024 TECHNIQUE: Multiplanar multisequence MRI of the abdomen, obtained without IV contrast, utilizing M [employer] sequences. FINDINGS: Motion artifact somewhat limits evaluation. Status post cholecystectomy. No intrahepatic biliary ductal dilation. Common bile duct is somewhat prominent in caliber measuring 9 mm, within expected limits for postchol ecystectomy status. The filling defect is seen along the most distal common bile duct, approximately 1 cm from the ampulla, measuring between 6-8 mm, difficult to accurately measure given the degree of motion. See series 3, image 21, series 4, image 1, and series 10, image 17, among others. Smooth tape ring at the ampulla. Main pancreatic duct is not dilated. The visualized aspects of the liver, spleen, adrenal glands, pancreas, and kidneys are unremarkable a part from stable left renal parapelvic 3.5 cm cyst. Visualized aspects of the bowel shows significant stool burden along the splenic flexure. No suspicious osseous lesions. Visualized lower lungs are unremarkable. IMPRESSION: The visualized common duct stone appears to have moved distally within the duct, now res iding approximately 1 cm prior to the ampulla. On this exam, it measures between 6-8 mm, although acc urate delineation is difficult given some motion artifact. Status post cholecystectomy.
[2024-02-29] MEDS: methocarbamoL 500 MG TAB PO PRN (20:25)
[2024-02-29] MEDS: ZOLPIDEM TARTRATE 5 MG TABLET PO PRN (20:26)
[2024-02-29] MEDS: HYDROCODONE/APAP 5/325 MG TAB PO PRN (20:26)
--- NOTE | 2024-03-01 01:57 | PN ---
Date of Progress Note: 02/29/2024 Subjective: Patient was seen this morning for followup. She was lying in bed, not in any distress. No new complaints or problems reported by her. Yesterday, the patient's son had contacted me and in formed me that the patient was having significant lower back pain. This was worse than what it was l ast week and she was advised to come to emergency room and I did communicate details with ANANT medina. After she was evaluated in the emergency room, she was admitted to the hospital. This morning wh en I saw her, she denied any other complaints. No abdominal pain, nausea, vomiting. Objective: Vital Signs: Reviewed. HEENT: Unremarkable. Lungs: Clear to auscultation. Cardiac: Heart sounds normal. Abdomen: Soft. Bowel sounds normal. No guarding, rigidity, tenderness, distention. Extremities: No leg edema. Neurologic: No focal neurological deficits. Laboratory Data: White count 6.7, hemoglobin 10.3, platelets 347. Sodium 136, potassium 3.7, chlori de 107, bicarb 28, BUN 41, creatinine 0.92, glucose 109. Liver function tests unremarkable. X-ray o f thoracic spine and lumbar spine shows degenerative joint disease. No evidence of any fracture. Impression: 1.Lumbar spondylosis. 2.Rule out compression fracture of spine. 3.Choledocholithiasis. 4.Hypertension. Plan: We will go ahead and continue current pain medication. I have ordered MRI of lumbar spine and MRCP and this testing was done today. Physical Therapy was consulted to help ambulate the patient. Her MRI of lumbar spine does not show any compression fracture, but shows advanced changes of degene rative joint disease with changes of spinal stenosis at multiple levels. Her MRCP shows evidence of stone in the common bile duct, which appears to have moved distally compared to CT abdomen report fro m about 6 days ago. The patient's son was contacted per request with all this information and he was advised to make sure that the patient follows up with Dr. Flores as soon as possible for this stone in the common bile duct for further intervention, and as of tomorrow, I will start her on oral steroi d medication and our plan is to discharge her to go home tomorrow after I see her. LIYA/MODL Voice ID: [id number] Report ID: [id number]
--- NOTE | 2024-03-01 10:48 | RAD REPORT ---
EXAM DESCRIPTION: RAD - Barium Swallow Modified - 03/01/2024 10:40 am CLINICAL HISTORY: difficulty swallowing COMPARISON: Cholangiogram dated 02/29/2024 TECHNIQUE: The patient was given liquid, semi-solid and solid forms of barium. Lateral view fluorosc opic imaging was performed in conjunction with speech pathology service. FINDINGS: Pharyngeal residue: Vallecular, clears spontaneasly with 2nd swallow. dysmotility of distal esophagus. Total fluoroscopy time: 3 minutes and 11 seconds
[2024-03-01 12:18] LABS: Absolute Lymphocytes (CBC) 0.9 K/uL (0.7-4.9); Absolute Monocytes 1.9 K/uL (0.1-1.3); Basophils % 0.2 % (0-1.3); Eosinophils % 0.3 % (0-4.4); Hematocrit 33.1 % (36.0-45.0); Hemoglobin 10.6 g/dL (12.0-15.0); Lymphocytes % 6.2 % (15.3-44.8); MCH 33.6 pg (27.0-35.0); MCHC 32.1 g/dL (32.0-36.0); MCV 104.6 fL (80-100); MPV 6.8 fL (7.6-11.3); Monocytes % 13.9 % (3.3-12.3); Neutrophils % 79.4 % (41.7-73.7); Platelets 338 thou/uL (152-406); RBC Red Blood Cell Count 3.17 M/uL (3.86-4.86); Red Cell Distribution Width 14.6 % (12.1-15.2)
[2024-03-01 12:29] LABS: Albumin 2.9 g/dL (3.4-5.0); Albumin/Globulin Ratio 0.7 (1.1-1.8); Bilirubin Total 0.4 mg/dL (0.2-1.0); Globulin 4.1 g/dL (2.3-3.5); Magnesium 2.6 mg/dL (1.6-2.4); Phosphorus 3.2 mg/dL (2.5-4.9)
[2024-03-01] MEDS: NA CHLORIDE 0.9% 1,000 ML IV SCH (20:39)
[2024-03-02 06:26] LABS: Absolute Eosinophils 0.2 K/uL (0-0.5); Absolute Lymphocytes (CBC) 1.3 K/uL (0.7-4.9); Absolute Monocytes 1.2 K/uL (0.1-1.3); Absolute Neutrophil 7.2 K/uL (1.8-8.0); Basophils % 0.4 % (0-1.3); Hematocrit 29.6 % (36.0-45.0); Lymphocytes % 13.1 % (15.3-44.8); MCHC 33.9 g/dL (32.0-36.0); MCV 103.1 fL (80-100); MPV 6.5 fL (7.6-11.3); Monocytes % 12.2 % (3.3-12.3); Neutrophils % 72.3 % (41.7-73.7); Nucleated Red Blood Cells % 0.1 % (0-0); Platelets 338 thou/uL (152-406); RBC Red Blood Cell Count 2.87 M/uL (3.86-4.86); Red Cell Distribution Width 14.8 % (12.1-15.2)
--- NOTE | 2024-03-02 06:45 | PN ---
Date of Progress Note: 03/01/2024 Subjective: The patient was seen this morning for followup. No new complaints or problems reported by her besides her back pain. Objective: Vital Signs: Reviewed. HEENT: Unremarkable. Lungs: Clear to auscultation. Heart: Sounds normal. Abdomen: Soft. Bowel sounds normal. No guarding, rigidity, tenderness, or distention. Extremities: No leg edema. Impression: 1.Lumbar spondylosis. 2.Diarrhea. 3.Dysphagia. 4.Anemia. Plan: The patient was complaining of some difficulty swallowing, so Speech Therapy consultation was requested and modified barium swallow was ordered and results came back unremarkable. So later this evening, as we were planning to discharge her, the patient informed nursing staff that she does not f eel comfortable going home because she had really bad spell with diarrhea and she is feeling weak, so she does not feel comfortable going home. She lives at [facility] care facility, which is [facility], so with this concern, we decided to cancel her discharge, keep her in the hospital, and I will re- evaluate her in the morning. Meanwhile, we will give her some maintenance IV fluid. Stool for C. di ff was ordered, which unfortunately we were not able to collect the specimen as nursing staff informe d me that the patient had received laxative which was milk of magnesia day before as she was complain ing of constipation, so I believe that this diarrhea problem is very likely due to her laxative use and we will re-evaluate her tomorrow. Possible discha rge to go home tomorrow. LIYA/MODL Voice ID: [id number] Report ID: [id number]
[2024-03-02 07:12] LABS: Albumin 2.5 g/dL (3.4-5.0); Albumin/Globulin Ratio 0.7 (1.1-1.8); Anion Gap 9.4 mEq/L (5.0-15.0); Bilirubin Total 0.3 mg/dL (0.2-1.0); Globulin 3.6 g/dL (2.3-3.5); Magnesium 2.3 mg/dL (1.6-2.4); Potassium 3.4 mEq/L (3.5-5.1); Protein, Total 6.1 g/dL (6.4-8.2)
[2024-03-02 07:37] VITALS: O2SAT 95
[2024-03-02] MEDS: POTASSIUM CL SA 10 MEQ TAB PO ONE (08:04)
[2024-03-02] MEDS: METHYLPREDNISOLONE 40 MG INJ IV SCH (11:15)
[2024-03-02] MEDS: LOPERAMIDE HCL 2 MG CAPSULE PO ONE (11:15)
--- NOTE | 2024-03-03 00:12 | PN ---
Date of Progress Note: 03/02/2024 Subjective: The patient was seen this morning for followup. No new complaints or problems reported by her except diarrhea. The patient took milk of magnesia for constipation day before yesterday and as of yesterday she started to have diarrhea. She has history of Crohn's disease and from time to ti me, she has diarrhea problem also. So at this point, we really do not know whether this diarrhea was induced by her laxative use or flare-up of her Crohn's disease that she has from [id number]. In a ny case, IV fluid was started last night and we will continue that. Objective: Vital Signs: Reviewed. HEENT: Unremarkable. Lungs: Clear to auscultation. Heart: Sounds normal. Abdomen: Soft. Bowel sounds normal. No guarding, rigidity, tenderness, distention. Extremities: No leg edema. Laboratory Data: White count 9.9, hemoglobin 10, platelets 338. Sodium 136, potassium 3.4, chloride 101, bicarb 29, BUN 39, creatinine 0.82, glucose 112. Liver function tests unremarkable. Impression: 1.Lumbar spondylosis. 2.Diarrhea. 3.Volume depletion. 4.Crohn's disease. Plan: We will go ahead and continue IV fluid. After I saw her, the patient had multiple episodes of diarrhea, so we were not able to discharge her and in fact, we had to order Imodium and I started he r on IV Solu-Medrol 40 mg twice a day. Her discharge was canceled. We will continue other current m edical medications. I did talk to her communication and outreach manager, Dr. Flores, regarding her stone in common bile duct as the patient will need ERCP and Dr. Flores on Thursday. Physical Therapy to mendez spivey to work with her. We will see her tomorrow for followup. Her Eliquis was discontinued after l ast dose yesterday morning, so that means last dose of Eliquis was morning of 03/01/[address] Flores i s aware of this. LIYA/MODL Voice ID: [id number] Report ID: [id number]
[2024-03-03] MEDS: NA CHLORIDE 0.9% 1,000 ML IV SCH (07:00)
[2024-03-03 08:28] LABS: Anion Gap 10.1 mEq/L (5.0-15.0); Magnesium 2.1 mg/dL (1.6-2.4); Potassium 4.1 mEq/L (3.5-5.1)
[2024-03-03] MEDS: D5 0.9 NS 1,000 ML IV SCH (09:45)
[2024-03-03] MEDS: METHYLPREDNISOLONE 40 MG INJ IV SCH (09:45)
[2024-03-04 12:28] VITALS: TEMP 97.5
--- NOTE | 2024-03-04 13:00 | PN ---
Date of Progress Note: 03/03/2024 Subjective: The patient was seen this morning for followup. No new complaints or problems reported by patient. She was lying in bed not in distress. Overall, her diarrhea has improved and back pain is better. Denies any abdominal pain, nausea, vomiting. Objective: Vital Signs: Reviewed. HEENT: Unremarkable. Lungs: Clear to auscultation. Heart: Sounds normal. Abdomen: Soft. Bowel sounds normal. No guarding, rigidity, tenderness, distention. Extremities: No leg edema. Impression: 1.Choledocholithiasis. 2.Lumbar spondylosis. 3.Crohn disease. 4.Volume depletion. Plan: We will go ahead and continue IV fluid at maintenance rate per order. Continue IV steroid, bu t reduce dose to 40 mg Solu-Medrol once a day from twice a day and I have discussed details with Dr. Flores yesterday regarding doing the ERCP tomorrow for the patient's choledocholithiasis and we will keep the patient n.p.o. after midnight and change her IV fluid at that time to D5 normal saline 50 cc /hour and we will keep the patient n.p.o. after midnight for the procedure tomorrow. All details wer e discussed with the patient. Plan is to discharge her to go home tomorrow after the ERCP. LIYA/MODL Voice ID: [id number] Report ID: [id number]
[2024-03-04] MEDS ORDERED: GENTAMICIN SULF 80 MG/2ML INJ ONE ×2 (14:05)
[2024-03-04] MEDS ORDERED: GLUCAGON 1 MG/VIAL ONE (14:05)
[2024-03-04] MEDS ORDERED: propofoL 200 MG/20 ML VIAL IV ONE (14:08)
[2024-03-04] MEDS ORDERED: LIDOCAINE 1% MPF 5 ML VIAL ONE (14:08)
[2024-03-04] MEDS: NA CHLORIDE 0.9% 0 ML ONE (14:50)
[2024-03-04 16:41] VITALS: BP 182/84
== END 2024-03-04 19:00 | disposition home health service (06) | DRG 552 ==
LOC: ER 12:40 → ERHOLD 15:51 → 2ND 16:46
PROVIDERS: ADMIT Hospitalist; ATTEND Internal Medicine
DX: M47.816 Spondylosis without myelopathy or radiculopathy, lumbar region (principal); K50.90 Crohn's disease, unspecified, without complications; K52.1 Toxic gastroenteritis and colitis; I10 Essential (primary) hypertension; G25.81 Restless legs syndrome; E03.9 Hypothyroidism, unspecified; E78.2 Mixed hyperlipidemia; E66.9 Obesity, unspecified; D64.9 Anemia, unspecified; E86.9 Volume depletion, unspecified; K21.9 Gastro-esophageal reflux disease without esophagitis; K80.50 Calculus of bile duct without cholangitis or cholecystitis without obstruction; T47.4X5A Adverse effect of other laxatives, initial encounter; R13.10 Dysphagia, unspecified; R19.7 Diarrhea, unspecified; R73.01 Impaired fasting glucose; R26.9 Unspecified abnormalities of gait and mobility; Z98.51 Tubal ligation status; Z88.1 Allergy status to other antibiotic agents; Z68.29 Body mass index [BMI] 29.0-29.9, adult; Z79.01 Long term (current) use of anticoagulants; Z90.49 Acquired absence of other specified parts of digestive tract; Z79.899 Other long term (current) drug therapy; Z86.711 Personal history of pulmonary embolism; Z90.710 Acquired absence of both cervix and uterus
CPT/HCPCS: 36415; 72070; 72100; 72148; 74181; 74230; 80048; 80053; 81001; 82947; 83735; 84100; 84145; 84443; 85025; 85610; 86140; 92610; 92611; 94010; 96372; 97116; 97161; 97530; 99285; J0360; J1580; J1610; J2001; J2704; J2800; J2919; J7030; J7040; J7042

== ENCOUNTER 2024-03-09 10:54 | Day surgery (SDC) | payer OTHER ==
[2024-03-09] MEDS: DIPHENHYDRAMINE 25 MG TAB/CAP ONE (11:31)
[2024-03-09] MEDS: METHYLPREDNISOLONE 40 MG INJ ONE (11:32)
[2024-03-09] MEDS: Ringers Lactate 1,000 ML IV ONE (11:38)
[2024-03-09] MEDS ORDERED: LIDOCAINE 2% MPF 5 ML VIAL ONE (12:27)
[2024-03-09] MEDS ORDERED: DIPHENHYDRAMINE 50 MG/ML VIAL ONE (12:27)
[2024-03-09] MEDS ORDERED: EPINEPHRINE 1 MG/ML VIAL ONE (12:27)
[2024-03-09] MEDS ORDERED: propofoL 200 MG/20 ML VIAL IV ONE ×2 (12:27→13:18)
[2024-03-09] MEDS ORDERED: dexAMETHasone 10 MG/ML VIAL ONE (12:27)
[2024-03-09] MEDS: GENTAMICIN SULF 80 MG/2ML INJ ONE (13:15)
[2024-03-09] MEDS ORDERED: SIMETHICONE 40 MG/ 0.6 ML ONE (13:17)
[2024-03-09] MEDS: GLUCAGON 1 MG/VIAL ONE ×2 (13:21→13:44)
--- NOTE | 2024-03-09 14:36 | RAD REPORT ---
EXAM DESCRIPTION: Fluoroscopy for ERCP CLINICAL HISTORY: ERCP Abdominal pain FINDINGS: Fluoroscopic images submitted from ERCP procedure. Details and diagnostic findings of the procedure are not available. Total fluoroscopy time: 9 minutes
[2024-03-09 15:26] VITALS: TEMP 97.2; O2SAT 96
[2024-03-09 15:27] VITALS: BP 152/76
--- NOTE | 2024-03-11 14:48 | EKG ---
Test Date: 2024-03-08 Test Time: 13:51:21 Trimmer Meat: ISHAN MEASUREMENT RESULTS: Intervals: Rate: 78 OK: 180 QRSD: 90 QT: 382 QTc: 435 Dante: P: 47 OK: 180 QRS: -23 T: 66 INTERPRETIVE STATEMENTS: Normal sinus rhythm Normal ECG Compared to ECG 12/18/2022 16:44:37 No significant changes Electronically Signed On 03-11-24 14:42:45 CDT by Alonso Early
== END 2024-03-09 16:25 | disposition home or self-care (01) ==
LOC: OR 10:54
PROVIDERS: ATTEND Internal Medicine Gastroenterology
PROC: 0F798ZZ Dilation of Common Bile Duct, Via Natural or Artificial Opening Endoscopic (ICD-10-PCS; principal; 2024-03-09 13:00)
DX: K80.50 Calculus of bile duct without cholangitis or cholecystitis without obstruction (principal); R10.11 Right upper quadrant pain; R93.2 Abnormal findings on diagnostic imaging of liver and biliary tract; E03.9 Hypothyroidism, unspecified; I10 Essential (primary) hypertension; F41.9 Anxiety disorder, unspecified; F32.A Depression, unspecified; F17.210 Nicotine dependence, cigarettes, uncomplicated
CPT/HCPCS: 93005; 43262; J1610 ×2; J2704 ×2; J1580; J2001; J0171; J7120; J2919; C1769 ×2; J1100; J1200

== ENCOUNTER 2024-04-27 09:10 | Day surgery (SDC) | payer OTHER ==
[2024-04-27] MEDS ORDERED: DIPHENHYDRAMINE 25 MG TAB/CAP ONE (09:24)
[2024-04-27] MEDS ORDERED: ACETAMINOPHEN 500 MG TAB ONE (09:24)
[2024-04-27] MEDS ORDERED: NA CHLORIDE 0.9% 500 ML ONE (09:25)
[2024-04-27 09:55] VITALS: BMI 31.8
[2024-04-27] MEDS ORDERED: NA CHLORIDE 0.9% IV SCH (10:00)
[2024-04-27] MEDS ORDERED: INFLIXIMAB ABDA IV SCH (10:00)
[2024-04-27 12:52] VITALS: BP 141/61; TEMP 97.2; O2SAT 97
== END 2024-04-27 12:24 | disposition home or self-care (01) ==
LOC: DS 09:10
PROVIDERS: ATTEND Internal Medicine Gastroenterology
DX: K50.911 Crohn's disease, unspecified, with rectal bleeding (principal)
CPT/HCPCS: 96365; 96366; Q5104; J7050; J7040

== ENCOUNTER 2024-06-04 06:40 | Emergency (ER) | payer OTHER ==
--- NOTE | 2024-06-04 08:19 | RAD REPORT ---
EXAM: CT brain without contrast HISTORY: TRAUMA COMPARISON: 11/06/2020 and 05/20/2024 TECHNIQUE: Multiple contiguous axial images were obtained and a CT of the brain without contrast. Sag ittal and coronal reformats were performed. FINDINGS: No evidence of hydrocephalus, intracranial hemorrhage, or extra-axial fluid collection. The brain is normal in morphology. The calvarium is intact. The visualized paranasal sinuses and mastoid air cells are essentially clear . IMPRESSION: No evidence of acute intracranial abnormality. EXAM: CT of the cervical spine without contrast HISTORY: TRAUMA COMPARISON: None TECHNIQUE: Multiple contiguous axial images were obtained in a CT of the cervical spine without contr ast. Sagittal and coronal reformats were performed. FINDINGS: The vertebral bodies demonstrate normal height and alignment. No evidence of acute fracture or subluxation.. Moderate to advanced multilevel degenerative changes with advanced disc height loss at C5-6 and C6-7. Uncovertebral joint and facet spurring contributes to mild degrees of foramina l narrowing bilaterally at C4-5 and C5-6. No prevertebral soft tissue swelling is seen. The posterior facets are well aligned. Normal alignment of the skull base with the cervical spine is seen. The lung apices are unremarkable. IMPRESSION: No evidence of acute osseous abnormality of the cervical spine. Multilevel degenerative changes as ab ove.
--- NOTE | 2024-06-04 08:25 | RAD REPORT ---
Exam: XR Forearm Right Clinical history: trauma Technique: 2 Radiographic views of the right forearm. Findings: No acute fracture or dislocation seen. Metallic bracelet obscures the carpal bones. Moderate degenera tive changes at the thumb base. No evidence of elbow joint effusion.
--- NOTE | 2024-06-04 08:26 | RAD REPORT ---
EXAM: XR Hand Right 3 View HISTORY: [facility] MA[facility] trauma Bed Name: 14 COMPARISON: None TECHNIQUE: 3 radiographic views of the RIGHT hand submitted. FINDINGS: No evidence of acute fracture or dislocation although metallic bracelet obscures the carpa l bones. Joint alignment is maintained. No soft tissue swelling is seen. Degenerative changes noted at the thumb base. Other scattered up to moderate mid to distal interphalangeal joint degenerative ch anges. IMPRESSION: No acute bone or joint abnormality. Degenerative changes as above.
--- NOTE | 2024-06-04 08:47 | ER ---
Nurse's Notes [facility] Name: Meenakshi Michele Age: 88 yrs Sex: Female : 1935 Arrival Date: 06/04/2024 Time: 06:40 Bed 14 Private MD: Diagnosis: Fall on same level, unspecified;Unspecified injury of head, initial encounter;Contusion of forearm Presentation: 06/04 06:52 Chief complaint: EMS states: mechanical fall to the floor in the bathroom, hit her kj2 head, down for 10 minutes, no LOC. Right arm is swollen. Care prior to arrival: Splint applied. splint applied to right arm. Mechanism of Injury: Fall from standing position. 06:52 Acuity: PONCHO 3 kj2 06:52 Method Of Arrival: EMS: [facility] kj2 07:02 Coronavirus screen: Client denies travel out of the [place] in the last 14 days. Ebola kj2 Screen: No symptoms or risks identified at this time. Initial Sepsis Screen: Does the patient meet any 2 criteria? No. Patient's initial sepsis screen is negative. Does the patient have a suspected source of infection? No. Patient's initial sepsis screen is negative. Risk Assessment: Do you want to hurt yourself or someone else? Patient reports no desire to harm self or others. Onset of symptoms was June 04, 2024. Triage Assessment: 06:58 General: Appears in no apparent distress. Behavior is calm, cooperative. Pain: kj2 Complains of pain in right arm Pain currently is 5 out of 10 on a pain scale. Neuro: Level of Consciousness is awake, alert, obeys commands, Oriented to person, place, time, situation. Cardiovascular: Patient's skin is warm and dry. Respiratory: Airway is patent Respiratory effort is. GI: No signs and/or symptoms were reported involving the gastrointestinal system. : No signs and/or symptoms were reported regarding the genitourinary system. Historical: - Allergies: 06:56 Erythromycin; kj2 06:56 Iodine (Anaphylaxis); kj2 - Home Meds: 06:56 Ambien 5 mg Oral tablet as needed [Active]; kj2 - PMHx: 06:56 Back pain; Hypertensive disorder; Pulmonary Embolism; kj2 - Immunization history: Last tetanus immunization: unknown. - Infectious Disease History:: Denies. - Social history:: Smoking status: Patient denies any tobacco usage or history of. Screenin:01 [facility] ED Fall Risk Assessment (Adult) History of falling in the last 3 months, kj2 including since admission Yes- single mechanical fall (1 pt) Confusion or Disorientation No (0 pts) Intoxicated or Sedated No (0 pts) Impaired Gait Yes (1 pt) Mobility Assist Device Used Yes (1 pt) Altered Elimination No (0 pt) Score/Fall Risk Level 0 - 2 = Low Risk Maintained a safe environment, Hourly rounding (assess needs \T\ fall precautionary measures) done. Abuse screen: Denies threats or abuse. Denies injuries from another. Nutritional screening: No deficits noted. Tuberculosis screening: No symptoms or risk factors identified. Assessment: 06:55 General: Appears in no apparent distress. Behavior is calm, cooperative. Pain: kj2 Complains of pain in right arm Pain currently is 5 out of 10 on a pain scale. Neuro: Level of Consciousness is awake, alert, obeys commands, Oriented to person, place, time, situation. Cardiovascular: Patient's skin is warm and dry. Respiratory: Airway is patent Respiratory effort is unlabored. GI: No signs and/or symptoms were reported involving the gastrointestinal system. : No signs and/or symptoms were reported regarding the genitourinary system. 07:00 Reassessment: Report received from manufacturing supervisor 2nd shift RN. ll1 07:05 General: Appears in no apparent distress. Behavior is calm, cooperative, appropriate ll1 for age. Pain: Complains of pain in right arm Quality of pain is described as aching. Musculoskeletal: Circulation, motion, and sensation intact. Capillary refill < 3 seconds, in right fingers. Reports pain in right arm. Injury Description: Bruise. 08:00 Reassessment: No changes from previously documented assessment. Patient and/or family ll1 updated on plan of care and expected duration. Pain level reassessed. Patient is alert, oriented x 3, equal unlabored respirations, skin warm/dry/pink. 08:55 Reassessment: No changes from previously documented assessment. Patient and/or family ll1 updated on plan of care and expected duration. Pain level reassessed. Patient is alert, oriented x 3, equal unlabored respirations, skin warm/dry/pink. 09:07 Reassessment: No changes from previously documented assessment. Patient and/or family ll1 updated on plan of care and expected duration. Pain level reassessed. Patient is alert, oriented x 3, equal unlabored respirations, skin warm/dry/pink. 09:18 Reassessment: No changes from previously documented assessment. Patient and/or family ll1 updated on plan of care and expected duration. Pain level reassessed. patel picking her up in a couple hours. Vital Signs: 06:57 BP 170 / 78; Pulse 85; Resp 18; Temp 98; Pulse Ox 100% on R/A; Weight 78.93 kg; Height kj2 5 ft. 2 in. ; Pain 5/10; 07:18 BP 159 / 78; Pulse 81; Resp 17; Pulse Ox 100% on R/A; ll1 08:55 BP 156 / 76; Pulse 81; Resp 17; Pulse Ox 100% ; ll1 06:57 Body Mass Index 31.82 (78.93 kg, 157.48 cm) kj2 06:57 Pain Scale: Adult kj2 [place] Coma Score: 07:41 Eye Response: spontaneous(4). Motor Response: obeys commands(6). Verbal Response: bo1 oriented(5). Total: 15. ED Course: 06:49 Patient arrived in ED. vc1 06:50 Corinna Garcia RN is Primary Nurse. kj2 06:55 Triage completed. kj2 07:00 Patient placed in an exam room, on a stretcher. ll1 07:01 Maxim Enciso MD is Attending Physician. bo1 07:03 Patient has correct armband on for positive identification. Bed in low position. Call kj2 light in reach. Side rails up X 1. Provided Education on: call light, fall precautions. Report given to ALKA Espinoza. 07:06 Warm blanket given. Verbal reassurance given. NPO now. ll1 07:16 Primary Nurse role handed off by Corinna Garcia RN ll1 07:16 Olga Mcdermott RN is Primary Nurse. ll1 07:41 CT Head C Spine In Process Unspecified. EDMS 07:59 Forearm Right XRAY In Process Unspecified. EDMS 08:01 Hand Right 3 View XRAY In Process Unspecified. EDMS 09:05 Wound care: to skin tear R FA located on right arm was cleaned with with and saline, ll1 dressed with Kerlix, non adherent dressing, Patient tolerated well. 09:07 No provider procedures requiring assistance completed. Patient did not have IV access ll1 during this emergency room visit. Administered Medications: No medications were administered Medication: 07:03 VIS not applicable for this client. kj2 Outcome: 08:46 Discharge ordered by . samson : Discharged to home via wheelchair, ll1 : Condition: stable :07 Discharge instructions given to patient, Instructed on discharge instructions, follow up and referral plans. wound care, Demonstrated understanding of instructions, follow-up care, wound care, :19 Patient left the ED. ll1 Signatures: Dispatcher [employer] EDMS Olga Mcdermott RN RN ll1 Jessica Washington RN RN 1 Maxim Enciso MD MD bo1 Corinna Garcia, RN RN kj2
--- NOTE | 2024-06-04 08:47 | EDPHYS ---
Physician Documentation [facility] Name: Meenakshi Michele Age: 88 yrs Sex: Female : 1935 Arrival Date: 06/04/2024 Time: 06:40 Bed 14 Private MD: ED Physician Maxim Enciso HPI: 06/04 07:27 This 88 yrs old Female presents to ER via EMS with complaints of Fall Injury. bo1 07:27 Details of fall: The patient fell from an upright position, while walking, States she bo1 "slid" down from her walker and hit her head and skinned her arm. This AM. Sent from the facility. Hx of the same some days ago. No LOC.. Onset: The symptoms/episode began/occurred suddenly, this morning. Associated injuries: The patient sustained injury to the head, face and right arm, abrasion. Severity of symptoms: At their worst the symptoms were very mild. 07:29 The patient has experienced a previous episode, Few days ago. Sent from facility. bo1 Historical: - Allergies: 06:56 Erythromycin; kj2 06:56 Iodine (Anaphylaxis); kj2 - Home Meds: 06:56 Ambien 5 mg Oral tablet as needed [Active]; kj2 - PMHx: 06:56 Back pain; Hypertensive disorder; Pulmonary Embolism; kj2 - Immunization history: Last tetanus immunization: unknown. - Infectious Disease History:: Denies. - Social history:: Smoking status: Patient denies any tobacco usage or history of. ROS: 07:35 Constitutional: Negative for fever, chills, and weight loss bo1 07:35 Neck: Negative for pain at rest, 07:35 Respiratory: Negative for shortness of breath, 07:35 Abdomen/GI: Negative for abdominal pain, 07:35 Back: Negative for pain at rest, 07:35 MS/extremity: Positive for abrasion, of the right arm, 07:35 Skin: Positive for "skin tears", 07:35 Neuro: Negative for altered mental status, loss of consciousness, visual changes, 07:35 All other systems are negative, Exam: 07:39 Constitutional: This is a well developed, well nourished patient who is awake, alert, bo1 and in no acute distress. 07:39 Head/face: Exam is negative for acute changes, obvious evidence of injury or deformity, swelling, tenderness, 07:39 ENT: Exam is negative for acute changes, injury of acute deformity, 07:39 Neck: External neck: is normal, no acute changes, 07:39 Chest/axilla: Inspection: normal, Palpation: is normal, 07:39 Cardiovascular: Rate: normal, Rhythm: regular, Pulses: no pulse deficits are appreciated, 07:39 Respiratory: the patient does not display signs of respiratory distress, Respirations: normal, Breath sounds: are clear throughout, 07:39 Musculoskeletal/extremity: Extremities: all appear grossly normal, with no appreciated pain with palpation, noted in the right arm: In aluminum splint and Kerlix dressing (forearm), 07:39 Skin: injury, abrasion(s), small abrasion noted, of the right arm, "skin tear" not actively bleeding, 07:41 Neuro: Orientation: is normal, appropriate for stated age, Mentation: is normal, bo1 appropriate for stated age, Sensation: is normal, no obvious gross deficits, appropriate Abnormal movements: there are no abnormal movements, Vital Signs: 06:57 BP 170 / 78; Pulse 85; Resp 18; Temp 98; Pulse Ox 100% on R/A; Weight 78.93 kg; Height kj2 5 ft. 2 in. ; Pain 5/10; 07:18 BP 159 / 78; Pulse 81; Resp 17; Pulse Ox 100% on R/A; ll1 08:55 BP 156 / 76; Pulse 81; Resp 17; Pulse Ox 100% ; ll1 06:57 Body Mass Index 31.82 (78.93 kg, 157.48 cm) kj2 06:57 Pain Scale: Adult kj2 [place] Coma Score: 07:41 Eye Response: spontaneous(4). Motor Response: obeys commands(6). Verbal Response: bo1 oriented(5). Total: 15. MDM: 06:51 Medical Screening Exam initiated sp3 08:42 Differential diagnosis: abrasion, closed head injury. Data reviewed: vital signs, bo1 radiologic studies, CT scan, plain films. 08:43 ED course: No hospitalization needed or indicated. Return to the facility. bo1 06/04 06:52 Order name: CT Head C Spine; Complete Time: 08:33 sp3 06/04 06:52 Order name: Forearm Right XRAY; Complete Time: 08:33 sp3 06/04 06:52 Order name: Hand Right 3 View XRAY; Complete Time: 08:33 sp3 06/04 06:52 Order name: NPO; Complete Time: 07:04 sp3 Administered Medications: No medications were administered Disposition Summary: 06/04/24 08:46 Discharge Ordered Notes: Location: Intermediate bo1 Problem: new bo1 Symptoms: have improved bo1 Condition: Stable bo1 Diagnosis - Fall on same level, unspecified bo1 - Unspecified injury of head, initial encounter bo1 - Contusion of forearm bo1 Followup: bo1 - With: Private Physician - When: As needed - Reason: Discharge Instructions: - Discharge Summary Sheet bo1 - Head Injury, Adult, [id number] bo1 Forms: - Medication Reconciliation Form bo1 - Antibiotic Education bo1 - Prescription Opioid Use bo1 - Patient Portal Instructions bo1 - Leadership Thank You Letter bo1 Signatures: Dispatcher [employer] Linda Mac MD MD sp3 Maxim Enciso MD MD bo1 Corinna Garcia, RN RN kj2
[2024-06-04 09:23] VITALS: TEMP 98; O2SAT 100
[2024-06-04 09:25] VITALS: BP 156/76
== END 2024-06-04 09:19 ==
LOC: ER 06:40
DX: S09.90XA Unspecified injury of head, initial encounter (principal); S50.11XA Contusion of right forearm, initial encounter; W18.30XA Fall on same level, unspecified, initial encounter
CPT/HCPCS: 70450; 72125

== ENCOUNTER 2024-08-23 10:09 | Emergency (ER) | payer OTHER ==
[2024-08-23] MEDS ORDERED: KETOROLAC 30 MG/ML INJ ONE (10:25)
--- NOTE | 2024-08-23 10:48 | EDPHYS ---
Physician Documentation [facility] Name: Meenakshi Michele Age: 88 yrs Sex: Female : 1935 Arrival Date: 08/23/2024 Time: 10:09 Bed 8 Private MD: ED Physician Ebenezer Leija HPI: 08/23 10:24 This 88 yrs old Female presents to ER via EMS with complaints of Back Pain. rn 10:24 The patient presents with pain that is chronic. The symptoms are located in the low rn back. Onset: The symptoms/episode began/occurred at an unknown time. The pain radiates to the right leg and left leg. Modifying factors: The patient symptoms are alleviated by nothing, the patient symptoms are aggravated by any movement. Severity of symptoms: At their worst the symptoms were mild, in the emergency department the symptoms are unchanged. The patient has experienced similar episodes in the past. EMS reports detention called 911 because she slid out of bed. Patient reports slid herself slowly out of bed, would not even call at a fall per patient. Patient denies injury or pain from episode today. Patient has chronic back pain. Patient reports currently having mild back pain compared to previous but is not any worse. No bowel or bladder issues. No weakness. Patient states does not like to take pain medication for her back pain. Patient states has good days and bad days.. Historical: - Allergies: 10:10 Erythromycin; ld1 10:10 Iodine (Anaphylaxis); ld1 - Home Meds: 10:10 Clonazepam Oral [Active]; ld1 - PMHx: 10:10 Back pain; Hypertensive disorder; Pulmonary Embolism; ld1 - Immunization history:: Adult Immunizations up to date. - Infectious Disease History:: Denies. - Social history:: Smoking status: Patient denies any tobacco usage or history of. - Family history:: not pertinent. - Hospitalizations: : No recent hospitalization is reported. ROS: 10:24 Constitutional: Negative for fever, chills, and weight loss, Cardiovascular: Negative rn for chest pain, palpitations, and edema, Respiratory: Negative for shortness of breath, cough, wheezing, and pleuritic chest pain, Abdomen/GI: Negative for abdominal pain, nausea, vomiting, diarrhea, and constipation, Back: Positive for chronic back pain : Negative for injury, bleeding, discharge, and swelling, MS/Extremity: Negative for injury and deformity, Neuro: Negative for headache, weakness, numbness, tingling, and seizure, Exam: 10:24 Constitutional: This is a well developed, well nourished patient who is awake, alert, rn and in no acute distress. Abdomen/GI: Soft, non-tender Back: No spinal tenderness MS/ Extremity: Pulses equal, no cyanosis. Neurovascular intact. Full, normal range of motion of bilateral hips. Equal circumference. Neuro: Awake and alert, GCS 15, oriented to person, place, time, and situation. Motor strength 5/5 in all extremities. Sensory grossly intact. Vital Signs: 10:11 Pulse 75; Resp 18; Temp 97.6(TE); Pulse Ox 94% on R/A; Weight 81.65 kg; Height 5 ft. 4 ld1 in. ; Pain 5/10; 11:30 BP 158 / 63; Pulse 72; Resp 16; Pulse Ox 97% ; ko1 10:11 Body Mass Index 30.90 (81.65 kg, 162.56 cm) ld1 10:11 Pain Scale: Adult ld1 MDM: 10:12 Medical Screening Exam initiated rn 10:47 Differential diagnosis: arthritis, chronic back pain, Osteoarthritis. Data reviewed: rn vital signs, nurses notes, old medical records, and as a result, I will discharge patient. Counseling: I had a detailed discussion with the patient and/or guardian regarding the historical points, exam findings, and any diagnostic results supporting the discharge/admit diagnosis, the need for outpatient follow up, to return to the emergency department if symptoms worsen or persist or if there are any questions or concerns that arise at home. Special discussion: I discussed with the patient/guardian in detail that at this point there is no indication for admission to the hospital. It is understood, however, that if the symptoms persist or worsen the patient needs to return immediately for re-evaluation. Based on the history and exam findings, there is no indication for further emergent testing or inpatient evaluation. I discussed with the patient/guardian the need to see the back specialist for further evaluation of the symptoms. I discussed with the patient/guardian the need to see the primary care provider for further evaluation of the symptoms. Administered Medications: 10:27 Drug: Ketorolac IM 15 mg IM once Route: IM; Site: right deltoid; ld1 10:57 Follow up: Response: No adverse reaction ko1 Disposition Summary: 08/23/24 10:48 Discharge Ordered Notes: Location: Home rn Problem: new rn Symptoms: have improved rn Condition: Stable rn Diagnosis - Low back pain rn Followup: rn - With: Private Physician - When: As needed - Reason: Recheck today's complaints, Re-evaluation by your physician Discharge Instructions: - Discharge Summary Sheet rn - Chronic Back Pain rn Forms: - Medication Reconciliation Form rn - Antibiotic furnace cleaner - Prescription Opioid Use rn - Patient Portal Instructions rn - Leadership Thank You Letter rn Signatures: Ebenezer Leija MD MD rn Sims, Lauren, RN RN carola1 Lyric Whitney RN1
--- NOTE | 2024-08-23 10:48 | ER ---
Nurse's Notes [facility] Name: Meenakshi Michele Age: 88 yrs Sex: Female : 1935 Arrival Date: 08/23/2024 Time: 10:09 Bed 8 Private MD: Diagnosis: Low back pain Presentation: 08/23 10:11 Chief complaint: EMS states: toned out to [facility] for chronic back pain. ld1 Coronavirus screen: At this time, the client does not indicate any symptoms associated with coronavirus-19. Ebola Screen: No symptoms or risks identified at this time. Initial Sepsis Screen: Does the patient meet any 2 criteria? No. Patient's initial sepsis screen is negative. Does the patient have a suspected source of infection? No. Patient's initial sepsis screen is negative. Risk Assessment: Do you want to hurt yourself or someone else? Patient reports no desire to harm self or others. Onset of symptoms was August 23, 2024. 10:11 Method Of Arrival: EMS: [facility] ld1 10:11 Acuity: PONCHO 4 ld1 Triage Assessment: 10:12 General: Appears in no apparent distress. comfortable, Behavior is calm, cooperative, ld1 appropriate for age. Pain: Complains of pain in back Pain does not radiate. Pain currently is 5 out of 10 on a pain scale. Quality of pain is described as throbbing, Pain began suddenly, Is continuous. EENT: No signs and/or symptoms were reported regarding the EENT system. Neuro: Level of Consciousness is awake, alert, obeys commands, Oriented to person, place, time, situation, Appropriate for age. Cardiovascular: Capillary refill < 3 seconds Patient's skin is warm and dry. Respiratory: Airway is patent Respiratory effort is even, unlabored. GI: Abdomen is round non-distended. : No signs and/or symptoms were reported regarding the genitourinary system. Derm: No signs and/or symptoms reported regarding the dermatologic system. Musculoskeletal: Range of motion: intact in all extremities. Historical: - Allergies: 10:10 Erythromycin; ld1 10:10 Iodine (Anaphylaxis); ld1 - Home Meds: 10:10 Clonazepam Oral [Active]; ld1 - PMHx: 10:10 Back pain; Hypertensive disorder; Pulmonary Embolism; ld1 - Immunization history:: Adult Immunizations up to date. - Infectious Disease History:: Denies. - Social history:: Smoking status: Patient denies any tobacco usage or history of. - Family history:: not pertinent. - Hospitalizations: : No recent hospitalization is reported. Screenin:14 [facility] ED Fall Risk Assessment (Adult) History of falling in the last 3 months, ld1 including since admission Yes- single mechanical fall (1 pt) Confusion or Disorientation No (0 pts) Intoxicated or Sedated No (0 pts) Impaired Gait No (0 pts) Mobility Assist Device Used No (0 pt) Altered Elimination No (0 pt) Score/Fall Risk Level 0 - 2 = Low Risk Oriented to surroundings, Hourly rounding (assess needs \T\ fall precautionary measures) done. Abuse screen: Denies threats or abuse. Denies injuries from another. Nutritional screening: No deficits noted. Tuberculosis screening: No symptoms or risk factors identified. Assessment: 10:14 Reassessment: See triage assessment. Neuro: Level of Consciousness is awake, alert, ld1 obeys commands, Oriented to person, place, time, situation, Appropriate for age. Vital Signs: 10:11 Pulse 75; Resp 18; Temp 97.6(TE); Pulse Ox 94% on R/A; Weight 81.65 kg; Height 5 ft. 4 ld1 in. ; Pain 5/10; 11:30 BP 158 / 63; Pulse 72; Resp 16; Pulse Ox 97% ; ko1 10:11 Body Mass Index 30.90 (81.65 kg, 162.56 cm) ld1 10:11 Pain Scale: Adult ld1 ED Course: 10:10 Patient arrived in ED. ld1 10:12 Lyric Whitney, RN is Primary Nurse. ko1 10:12 Triage completed. ld1 10:12 Ebenezer Leija MD is Attending Physician. rn 10:12 Arm band placed on right wrist. ld1 10:14 Patient has correct armband on for positive identification. Placed in gown. Bed in low ld1 position. Call light in reach. Side rails up X2. Pulse ox on. NIBP on. Door closed. Noise minimized. 10:14 No provider procedures requiring assistance completed. ld1 11:30 Provided Education on: meds. ko1 11:30 Patient did not have IV access during this emergency room visit. ko1 Administered Medications: 10:27 Drug: Ketorolac IM 15 mg IM once Route: IM; Site: right deltoid; ld1 10:57 Follow up: Response: No adverse reaction ko1 Medication: 10:14 VIS not applicable for this client. ld1 Outcome: 10:48 Discharge ordered by . rn 11:30 Discharged to [facility] ko1 11:30 Condition: stable 11:30 Discharge instructions given to patient, Instructed on discharge instructions, follow up and referral plans. Demonstrated understanding of instructions, follow-up care, 11:48 Patient left the ED. ko1 Signatures: Ebenezer Leija MD MD rn Bisi Villarreal RN RN ld1 Lyric Whitney RN RN ko1
[2024-08-23 12:47] VITALS: TEMP 97.6
[2024-08-23 12:48] VITALS: BP 158/63; O2SAT 97
== END 2024-08-23 11:48 | disposition home or self-care (01) ==
LOC: ER 10:09
DX: M54.50 Low back pain, unspecified (principal)

== ENCOUNTER 2024-08-26 11:20 | Emergency (ER) | payer OTHER ==
--- NOTE | 2024-08-26 13:03 | RAD REPORT ---
EXAMINATION: CT Abdomen Pelvis Wo Contrast CLINICAL INDICATION: Female, 88 years old. LUMBAR BACK PAIN;Flank pain TECHNIQUE: CT abdomen and pelvis was performed, without IV contrast, as per department protocol. Axia l, sagittal and coronal reconstructions were obtained. One or more of the following dose reduction techniques were used: Automated exposure control, adjustment of the mA and kV according to the patien t size, and iterative reconstruction. Unless otherwise specified, incidental findings do not require dedicated imaging follow-up. COMPARISON: 02/22/2024 CT abdomen and pelvis. 02/29/2024 lumbar spine MRI. FINDINGS: The lack of intravenous contrast limits the sensitivity of this exam for evaluation of solid visceral organs, vascular structures, and retroperitoneum. LOWER CHEST: The visualized lung bases are clear. Dense mitral valve calcifications again seen. LIVER: Normal in size and contour. No focal lesion. BILIARY SYSTEM: Status post cholecystectomy. Hyperdense 9 mm calculus now seen more distally near the ampulla, previously was present along the proximal common bile duct. Stable caliber prominence of the common bile duct, up to 11-12 mm. SPLEEN: Normal size. No focal lesion. PANCREAS: No mass, ductal dilation, or martínez-pancreatic fluid. ADRENALS: Normal; no mass. KIDNEYS AND URETERS: Normal size and contour. No hydronephrosis. Stable left parapelvic 3.6 cm cyst. Lower pole left-sided 4 mm nonobstructing calculus. URINARY BLADDER: Normal contour. GASTROINTESTINAL TRACT: No evidence of bowel obstruction, significant free fluid, free air or abscess . APPENDIX: Normal appendix. LYMPH NODES: No lymphadenopathy. MUSCULOSKELETAL: No acute fractures identified. Degenerative lumbar spine changes again seen with gra de 1 anterolisthesis of L4 over L5. Progressive endplate destructive or resorptive changes at L2-3 with widening of the disc space, now containing fluid signal intensity with loss of vacuum phenomenon seen before, and pronounced osseous remodeling of the endplates. Mild adjacent fat stranding, extending towards the left more than right psoas muscle, with no appreciable collections of noncontra st examination. ADDITIONAL FINDINGS: Status post hysterectomy.. IMPRESSION: Progressive osseous destructive/resorptive changes at L2-3 endplates with widening of the disc space. The findings could relate to advanced spondylotic changes although acute or chronic sequelae of discitis/osteomyelitis should be considered. If there is persistent clinical concern, additional eval uation by lumbar spine MRI with and without contrast would provide improved assessment. Mildly hyperdense distal common bile duct calculus up to 9 mm in size, now seen more distally near th e ampulla. Stable prominent caliber of the common bile duct. Please correlate with bilirubin profile. Left lower renal pole 4 mm nonobstructing calculus. Other incidental findings as above. THIS REPORT CONTAINS FINDINGS THAT MAY BE CRITICAL TO PATIENT CARE. The findings were verbally commun icated via telephone to Franki Rodríguez MD on 08/26/2024 1:00 PM.
[2024-08-26 13:16] LABS: Absolute Eosinophils 0.1 K/uL (0-0.5); Absolute Monocytes 0.8 K/uL (0.1-1.3); Basophils % 0.2 % (0-1.3); Eosinophils % 1.1 % (0-4.4); Hematocrit 31.5 % (36.0-45.0); Hemoglobin 10.4 g/dL (12.0-15.0); Lymphocytes % 14.8 % (15.3-44.8); MCH 31.4 pg (27.0-35.0); MCHC 33.2 g/dL (32.0-36.0); MCV 94.4 fL (80-100); MPV 6.9 fL (7.6-11.3); Monocytes % 11.2 % (3.3-12.3); Neutrophils % 72.7 % (41.7-73.7); Nucleated Red Blood Cells % 0.1 % (0-0); Platelets 331 thou/uL (152-406); RBC Red Blood Cell Count 3.33 M/uL (3.86-4.86); Red Cell Distribution Width 16.7 % (12.1-15.2)
[2024-08-26] MEDS ORDERED: dexAMETHasone 10 MG/ML VIAL ONE (13:23)
[2024-08-26] MEDS ORDERED: KETOROLAC 30 MG/ML INJ ONE (13:23)
[2024-08-26] MEDS ORDERED: ONDANSETRON 4 MG/2 ML VIAL ONE (13:23)
[2024-08-26] MEDS ORDERED: NA CHLORIDE 0.9% 500 ML ONE (13:24)
[2024-08-26] MEDS ORDERED: DIAZEPAM 5 MG TABLET ONE (13:24)
[2024-08-26] MEDS ORDERED: FENTANYL CITR 100 MCG/2 ML ONE (13:26)
[2024-08-26 13:51] LABS: Specific Gravity 1.011 (1.005-1.030); Sqamous Epithelial <5 /HPF (None Seen); Transitional Epithelial <5 /HPF (None Seen); Urine Bacteria <20 /HPF (<20); Urine Bilirubin NEGATIVE (Negative); Urine Blood Negative (Negative); Urine Clarity Turbid (Clear); Urine Color Light-Yellow (Yellow); Urine Culture Reflex Order NOT NEEDED; Urine Glucose NEGATIVE (Negative); Urine Ketones NEGATIVE (Negative); Urine Microscopic Reflex YN ORDER UMIC; Urine Mucus Slight /HPF (None Seen); Urine Nitrite NEGATIVE (Negative); Urine Protein NEGATIVE (Negative); Urine RBC <5 /HPF (None Seen); Urine Urobilinogen Normal (Normal); Urine WBC <5 /HPF (<5); Urine pH 5.5 (5.0-7.0)
[2024-08-26 14:03] LABS: Albumin/Globulin Ratio 0.6 (1.1-1.8); Anion Gap 9.4 mEq/L (5.0-15.0); Bilirubin Total 0.8 mg/dL (0.2-1.0); Globulin 4.8 g/dL (2.3-3.5); Potassium 3.4 mEq/L (3.5-5.1); Protein, Total 7.8 g/dL (6.4-8.2)
--- NOTE | 2024-08-26 17:54 | RAD REPORT ---
EXAMINATION: MR CHOLANGIOGRAM CLINICAL INDICATION: Abdominal pain TECHNIQUE: Magnetic resonance cholangiopancreatogram was performed. 3D MIP reconstruction done. COMPARISON: 2023 FINDINGS: An approximately 9 mm round filling defect is present within the distal common bile duct compatible w ith a stone. Mild dilatation of the intrahepatic and extrahepatic biliary tree is present. Cholecystectomy Pancreatic duct unremarkable. IMPRESSION: 9 mm stone distal common bile duct. Mild dilatation intrahepatic and extrahepatic biliary tree
--- NOTE | 2024-08-26 18:01 | ER ---
Nurse's Notes [facility] Name: Meenakshi Michele Age: 88 yrs Sex: Female : 1935 Arrival Date: 08/26/2024 Time: 11:20 Bed 20 Private MD: Diagnosis: Obstruction of bile duct-9 MM STONE DISTAL CBD;Low back pain;Discitis, unspecified, lumbar [id number];Osteomyelitis of vertebra, lumbar [id number];Hypokalemia Presentation: 08/26 11:25 Chief complaint: Patient states: left flank pain radiating to left lower back, pt aa5 reports pain is chronic but got worse 1-2 days ago, denies any recent injury. 11:25 Coronavirus screen: At this time, the client does not indicate any symptoms associated aa5 with coronavirus-19. Ebola Screen: Patient denies travel to an Ebola-affected area in the 21 days before illness onset. Initial Sepsis Screen: Does the patient meet any 2 criteria? No. Patient's initial sepsis screen is negative. Does the patient have a suspected source of infection? No. Patient's initial sepsis screen is negative. Risk Assessment: Do you want to hurt yourself or someone else? Patient reports no desire to harm self or others. Onset of symptoms was August 2024. 11:25 Acuity: PONCHO 3 aa5 11:25 Method Of Arrival: EMS: [facility] aa5 11:25 Transition of care: patient was received from another setting of care (long-term care [facility] facility), [facility]. Historical: - Allergies: 11:27 Erythromycin; aa5 11:27 Iodine (Anaphylaxis); aa5 - PMHx: 11:27 Back pain; Hypertensive disorder; Pulmonary Embolism; aa5 - Immunization history:: Adult Immunizations unknown. - Infectious Disease History:: Denies. - Social history:: Smoking status: Patient reports the use of cigarette tobacco products. Screenin:25 [facility] ED Fall Risk Assessment (Adult) History of falling in the last 3 months, aa5 including since admission No falls in past 3 months (0 pts) Confusion or Disorientation No (0 pts) Intoxicated or Sedated No (0 pts) Impaired Gait Yes (1 pt) Mobility Assist Device Used Yes (1 pt) Altered Elimination No (0 pt) Score/Fall Risk Level 0 - 2 = Low Risk Oriented to surroundings, Maintained a safe environment, Educated pt \T\ family on fall prevention, incl call for assistance when getting out of bed. Abuse screen: Denies threats or abuse. Nutritional screening: No deficits noted. Tuberculosis screening: No symptoms or risk factors identified. Assessment: 11:25 General: Appears uncomfortable, Behavior is calm, cooperative. Pain: Complains of pain aa5 in left flank Pain radiates to left low back Pain currently is 7 out of 10 on a pain scale. Quality of pain is described as sharp, Is continuous, Aggravated by repositioning. Neuro: Level of Consciousness is awake, alert, obeys commands, Oriented to person, place, time, situation. Cardiovascular: Patient's skin is warm and dry. Respiratory: Airway is patent Respiratory effort is even, unlabored, Respiratory pattern is regular, symmetrical. GI: Abdomen is round non-distended, Bowel sounds present X 4 quads. Abd is soft and non tender X 4 quads. : No signs and/or symptoms were reported regarding the genitourinary system. EENT: No signs and/or symptoms were reported regarding the EENT system. Derm: Skin is pink, warm \T\ dry. Musculoskeletal: Range of motion: intact in all extremities. 11:45 Reassessment: Pt in CT . aa5 12:45 Reassessment: Patient appears in no apparent distress at this time. Patient and/or kj2 family updated on plan of care and expected duration. Pain level reassessed. Patient is alert, oriented x 3, equal unlabored respirations, skin warm/dry/pink. 13:45 Reassessment: Patient appears in no apparent distress at this time. Patient and/or kj2 family updated on plan of care and expected duration. Pain level reassessed. Patient is alert, oriented x 3, equal unlabored respirations, skin warm/dry/pink. 14:45 Reassessment: Patient appears in no apparent distress at this time. Patient and/or kj2 family updated on plan of care and expected duration. Pain level reassessed. Patient is alert, oriented x 3, equal unlabored respirations, skin warm/dry/pink. General:. 15:45 Reassessment: Patient appears in no apparent distress at this time. Patient and/or kj2 family updated on plan of care and expected duration. Pain level reassessed. Patient is alert, oriented x 3, equal unlabored respirations, skin warm/dry/pink. 17:40 Reassessment: back from imaging. kj2 19:07 Reassessment: Patient appears in no apparent distress at this time. Patient and/or kj2 family updated on plan of care and expected duration. Pain level reassessed. Patient is alert, oriented x 3, equal unlabored respirations, skin warm/dry/pink. 19:40 Reassessment: Pt alert and oriented, no distress noted, denies CP and SOB, VSS, pt ay informed of plan to transfer. 19:45 Reassessment: Called [facility] to give RN to RN report but was told the ay receiving RN was in the middle of receiving a shift report. I was asked to call back in about 15 minutes. 20:57 Reassessment: Pt picked up by [facility] en rout to [facility]. Son updated.ay Vital Signs: 11:25 BP 171 / 76; Pulse 82; Resp 18 S; Temp 98(TE); Pulse Ox 100% on R/A; Weight 83.46 kg aa5 (R); Height 5 ft. 2 in. (R); Pain 7/10; 13:36 BP 168 / 78; Pulse 78; Resp 18; Pulse Ox 99% on R/A; kj2 14:45 BP 156 / 82; Pulse 70; Resp 18; Pulse Ox 100% on R/A; kj2 15:45 BP 158 / 78; Pulse 69; Resp 18; Pulse Ox 99% ; kj2 17:45 BP 148 / 88; Pulse 80; Resp 20; Pulse Ox 100% on R/A; kj2 19:07 BP 153 / 85; Pulse 76; Resp 18; Pulse Ox 99% on R/A; kj2 11:25 Body Mass Index 33.65 (83.46 kg, 157.48 cm) aa5 11:25 Pain Scale: Adult aa5 Lewis Coma Score: 11:46 Eye Response: spontaneous(4). Motor Response: obeys commands(6). Verbal Response: jose oriented(5). Total: 15. ED Course: 11:21 Patient arrived in ED. aa5 11:21 Arm band placed on Patient placed in an exam room, on a stretcher. aa5 11:25 Franki Rodríguez MD is Attending Physician. jose 11:25 Patient has correct armband on for positive identification. Placed in gown. Bed in low aa5 position. Call light in reach. Side rails up X2. Pulse ox on. NIBP on. 11:26 Veronica Lind RN is Primary Nurse. aa5 11:28 Triage completed. aa5 12:06 CT Abd/Pelvis - Without Contrast In Process Unspecified. EDMS 12:10 Report given to ALKA Weinstein. aa5 13:08 Inserted saline lock: 22 gauge in left antecubital area, using aseptic technique. Blood ss collected. Flushed with 10 mL NS. 15:19 Blood Culture Adult (2) Sent. kj2 17:30 Cholangiogram In Process Unspecified. EDMS 17:34 Spine Lumbar W/Wo Cont In Process Unspecified. EDMS 19:10 Report given to ALKA Mejia. kj2 20:58 No provider procedures requiring assistance completed. ay Administered Medications: 13:35 Drug: Ondansetron IVP 4 mg IVP once; over 2 minutes Route: IVP; Site: left antecubital; kj2 18:04 Follow up: Response: No adverse reaction kj2 13:35 Drug: Diazepam PO 5 mg PO once Route: PO; kj2 18:03 Follow up: Response: No adverse reaction kj2 13:35 Drug: Ketorolac IVP 15 mg IVP once Route: IVP; Site: left antecubital; kj2 18:03 Follow up: Response: No adverse reaction kj2 13:35 Drug: Decadron - Dexamethasone IVP 10 mg IVP once Route: IVP; Site: left antecubital; kj2 18:03 Follow up: Response: No adverse reaction kj2 13:36 Drug: NS 0.9% IV 500 ml 500 ml IV at 1 bolus once; to be given as a bolus over 30 kj2 minutes Volume: 500 ml; Route: IV; Rate: 1 bolus; Site: left antecubital; 18:04 Follow up: IV Status: Completed infusion; IV Intake: 500ml kj2 18:04 Follow up: Response: No adverse reaction kj2 13:36 Drug: fentaNYL (PF) IVP 25 mcg IVP once Route: IVP; Site: left antecubital; kj2 18:04 Follow up: Response: No adverse reaction kj2 18:04 Not Given (Duplicate Order): fentanyl (pf)25 mcg IVP once kj2 18:56 Drug: Piperacillin-Tazobactam IVPB 3.375 grams IVPB once over 60 mins; (mix in NS 100 kj2 mL) Route: IVPB; Infused Over: 60 mins; Site: left antecubital; 19:38 Follow up: IV Status: Completed infusion; IV Intake: 100ml ay Medication: 11:49 VIS not applicable for this client. aa5 Intake: 18:04 IV: 500ml; Total: 500ml. kj2 19:38 IV: 100ml; Total: 600ml. ay Outcome: 18:01 ER care complete, transfer ordered by . jose 20:58 Transferred by ground EMS [place] [facility] 20:[place] Condition: stable 20:58 Instructed on the need for transfer, 20:59 Patient left the ED. ay Signatures: Dispatcher [employer] EDFranki Kwan MD MD cha Calderon, Audri, RN RN aa5 Dayanara Toro RN RN Corinna Garcia RN RN kj2 Roberto Danielson RN RN ay
--- NOTE | 2024-08-26 18:01 | EDPHYS ---
Physician Documentation [facility] Name: Meenakshi Michele Age: 88 yrs Sex: Female : 1935 Arrival Date: 08/26/2024 Time: 11:20 Bed 20 Private MD: JODIE Physician Franki Rodríguez HPI: 08/26 11:45 This 88 yrs old Female presents to ER via EMS with complaints of Back Pain. jose 11:45 The patient presents with pain that is chronic, with no known mechanism of injury. The jose symptoms are located in the low back. Onset: The symptoms/episode began/occurred 3 day(s) ago. The pain does not radiate. Associated signs and symptoms: The patient has no apparent associated signs or symptoms. Modifying factors: The patient symptoms are alleviated by remaining still, the patient symptoms are aggravated by any movement, bending. Severity of symptoms: At their worst the symptoms were moderate, in the emergency department the symptoms are unchanged. The patient has not experienced similar symptoms in the past. Historical: - Allergies: 11:27 Erythromycin; aa5 11:27 Iodine (Anaphylaxis); aa5 - PMHx: 11:27 Back pain; Hypertensive disorder; Pulmonary Embolism; aa5 - Immunization history:: Adult Immunizations unknown. - Infectious Disease History:: Denies. - Social history:: Smoking status: Patient reports the use of cigarette tobacco products. ROS: 11:46 Constitutional: Negative for fever, chills, and weight loss, Eyes: Negative for injury, jose pain, redness, and discharge, ENT: Negative for injury, pain, and discharge, Neck: Negative for injury, pain, and swelling, Cardiovascular: Negative for chest pain, palpitations, and edema, Respiratory: Negative for shortness of breath, cough, wheezing, and pleuritic chest pain, Abdomen/GI: Negative for abdominal pain, nausea, vomiting, diarrhea, and constipation, : Negative for injury, bleeding, discharge, and swelling, MS/Extremity: Negative for injury and deformity, Skin: Negative for injury, rash, and discoloration, Neuro: Negative for headache, weakness, numbness, tingling, and seizure, Psych: Negative for depression, anxiety, suicide ideation, homicidal ideation, and hallucinations, Allergy/Immunology: Negative for hives, rash, and allergies, Endocrine: Negative for neck swelling, polydipsia, polyuria, polyphagia, and marked weight changes, Hematologic/Lymphatic: Negative for swollen nodes, abnormal bleeding, and unusual bruising, 11:46 Back: Positive for decreased range of motion, pain at rest, of the lumbar area, left low back, left mid back, right mid back and right low back, Exam: 11:46 Constitutional: This is a well developed, well nourished patient who is awake, alert, jose and in no acute distress. Head/Face: Normocephalic, atraumatic. Eyes: Pupils equal round and reactive to light, extra-ocular motions intact. Lids and lashes normal. Conjunctiva and sclera are non-icteric and not injected. Cornea within normal limits. Periorbital areas with no swelling, redness, or edema. ENT: Nares patent. No nasal discharge, no septal abnormalities noted. Tympanic membranes are normal and external auditory canals are clear. Oropharynx with no redness, swelling, or masses, exudates, or evidence of obstruction, uvula midline. Mucous membranes moist. Neck: Trachea midline, no thyromegaly or masses palpated, and no cervical lymphadenopathy. Supple, full range of motion without nuchal rigidity, or vertebral point tenderness. No Meningismus. Chest/axilla: Normal chest wall appearance and motion. Nontender with no deformity. No lesions are appreciated. Cardiovascular: Regular rate and rhythm with a normal S1 and S2. No gallops, murmurs, or rubs. Normal PMI, no JVD. No pulse deficits. Respiratory: Lungs have equal breath sounds bilaterally, clear to auscultation and percussion. No rales, rhonchi or wheezes noted. No increased work of breathing, no retractions or nasal flaring. Abdomen/GI: Soft, non-tender, with normal bowel sounds. No distension or tympany. No guarding or rebound. No evidence of tenderness throughout. Female : Normal external genitalia. Skin: Warm, dry with normal turgor. Normal color with no rashes, no lesions, and no evidence of cellulitis. MS/ Extremity: Pulses equal, no cyanosis. Neurovascular intact. Full, normal range of motion., bilateral aka Neuro: Awake and alert, GCS 15, oriented to person, place, time, and situation. Cranial nerves II-XII grossly intact. Motor strength 5/5 in all extremities. Sensory grossly intact. Cerebellar exam normal. Normal gait. Psych: Awake, alert, with orientation to person, place and time. Behavior, mood, and affect are within normal limits. 11:46 Back: pain, that is mild, that is moderate, ROM is painful, with all movement, normal spinal alignment noted, CVA tenderness, is absent, vertebral tenderness, is not appreciated, muscle spasm, is appreciated in the left low back, left mid back, right mid back and right low back, Vital Signs: 11:25 BP 171 / 76; Pulse 82; Resp 18 S; Temp 98(TE); Pulse Ox 100% on R/A; Weight 83.46 kg aa5 (R); Height 5 ft. 2 in. (R); Pain 7/10; 13:36 BP 168 / 78; Pulse 78; Resp 18; Pulse Ox 99% on R/A; kj2 14:45 BP 156 / 82; Pulse 70; Resp 18; Pulse Ox 100% on R/A; kj2 15:45 BP 158 / 78; Pulse 69; Resp 18; Pulse Ox 99% ; kj2 17:45 BP 148 / 88; Pulse 80; Resp 20; Pulse Ox 100% on R/A; kj2 19:07 BP 153 / 85; Pulse 76; Resp 18; Pulse Ox 99% on R/A; kj2 11:25 Body Mass Index 33.65 (83.46 kg, 157.48 cm) aa 11:25 Pain Scale: Adult aa5 Lewis Coma Score: 11:46 Eye Response: spontaneous(4). Motor Response: obeys commands(6). Verbal Response: jose oriented(5). Total: 15. MDM: 11:25 Medical Screening Exam initiated jose 11:47 Differential diagnosis: Cholelithiasis Fatigue Fracture Metastatic Disease Neoplasm jose Obesity Osteoarthritis Pyelonephritis Renal Infarction ruptured disc, Scoliosis sickle cell crisis, sprain, Ureterolithiasis vertebral fracture. Data reviewed: vital signs, nurses notes, EMS record, lab test result(s), radiologic studies, CT scan. Consideration of Admission/Observation Escalation of care including admission/observation considered. I considered the following discharge prescriptions or medication management in the emergency department Medications were administered in the Emergency Department. See MAR. Independent interpretation of the following test(s) in the Emergency Department CT Scan: My interpretation is CT AB/PEL. Test considered but Not performed: MRI: NO SPINAL MRI. Historians other than the Patient: EMS: EMS WELL INFORMED. Care significantly affected by the following chronic conditions: Hypertension, Obesity, CBP, PE. 08/26 11:38 Order name: CBC with Diff; Complete Time: 13:32 [facility] 08/26 11:38 Order name: Comprehensive Metabolic Panel; Complete Time: 15:57 [facility] 08/26 11:38 Order name: Urinalysis w/ reflexes; Complete Time: 15:57 [facility] 08/26 13:37 Order name: Blood Culture Adult (2) [facility] 08/26 11:38 Order name: CT Abd/Pelvis - Without Contrast; Complete Time: 13:32 [facility] 08/26 13:03 Order name: Spine Lumbar W/Wo Cont; Complete Time: 18:07 [facility] 08/26 16:10 Order name: Cholangiogram; Complete Time: 18:01 [facility] 08/26 18:32 Order name: PO challenge: JUICE; Complete Time: 18:56 [facility] Administered Medications: 13:35 Drug: Ondansetron IVP 4 mg IVP once; over 2 minutes Route: IVP; Site: left antecubital; kj2 18:04 Follow up: Response: No adverse reaction kj2 13:35 Drug: Diazepam PO 5 mg PO once Route: PO; kj2 18:03 Follow up: Response: No adverse reaction kj2 13:35 Drug: Ketorolac IVP 15 mg IVP once Route: IVP; Site: left antecubital; kj2 18:03 Follow up: Response: No adverse reaction kj2 13:35 Drug: Decadron - Dexamethasone IVP 10 mg IVP once Route: IVP; Site: left antecubital; kj2 18:03 Follow up: Response: No adverse reaction kj2 13:36 Drug: NS 0.9% IV 500 ml 500 ml IV at 1 bolus once; to be given as a bolus over 30 kj2 minutes Volume: 500 ml; Route: IV; Rate: 1 bolus; Site: left antecubital; 18:04 Follow up: IV Status: Completed infusion; IV Intake: 500ml kj2 18:04 Follow up: Response: No adverse reaction kj2 13:36 Drug: fentaNYL (PF) IVP 25 mcg IVP once Route: IVP; Site: left antecubital; kj2 18:04 Follow up: Response: No adverse reaction kj2 18:04 Not Given (Duplicate Order): fentanyl (pf)25 mcg IVP once kj2 18:56 Drug: Piperacillin-Tazobactam IVPB 3.375 grams IVPB once over 60 mins; (mix in NS 100 kj2 mL) Route: IVPB; Infused Over: 60 mins; Site: left antecubital; 19:38 Follow up: IV Status: Completed infusion; IV Intake: 100ml ay Disposition Summary: 08/26/24 18:01 Transfer Ordered Notes: Transfer Location: [facility] jose Reason: Higher level of care jose Condition: Stable jose Problem: new jose Symptoms: have improved jose Accepting Physician: to [facility](08/26/24 20:59) ay Diagnosis - Obstruction of bile duct - 9 MM STONE DISTAL CBD jose - Low back pain jose - Discitis, unspecified, lumbar region - L2-L3 jose - Osteomyelitis of vertebra, lumbar region - L2-L3 jose - Hypokalemia jose Discharge Instructions: - Discharge Summary Sheet jose - Acute Back Pain, Adult joes - Musculoskeletal Pain jose - Obesity, Adult jose - Chronic Back Pain, [id number] jose Forms: - Medication Reconciliation Form jose - SBAR form jose Prescriptions: - diclofenac sodium 25 mg Oral tablet, delayed release (enteric coated) - take 1 tablet ORAL route 3 times per day; 30 tablet; Refills: 0, Product jose Selection Permitted - Tramadol 50 mg Oral tablet - take 1 tablet ORAL route every 8 hours as needed; 21 tablet; Refills: 0, jose Product Selection Permitted - Cyclobenzaprine 5 mg Oral Tablet - take 1 tablet ORAL route 3 times per day As needed; 15 tablet; Refills: 0, jose Product Selection Permitted Signatures: Dispatcher [employer] Franki Frances MD MD cha Calderon, Audri, RN RN aa5 Corinna Garcia RN RN kj2 Roberto Danielson RN RN ay Corrections: (The following items were deleted from the chart) 18:09 18:01 to [facility] jose 18:33 18:09 to [facility] jose 20:59 18:33 to [facility] jose ay
--- NOTE | 2024-08-26 18:06 | RAD REPORT ---
EXAM;Spine Lumbar W/Wo Cont CLINICAL HISTORY: Back pain/radiculopathy TECHNIQUE: Axial, sagittal and coronal magnetic resonance imaging of lumbar spine obtained.. 18 cc Ma gnevist administered intravenously.. COMPARISON: CT August 26, 2024 FINDINGS : Abnormal signal involves almost all of the L2 and L3 vertebral bodies. Enhancement is present. Destru ctive changes involve the vertebral endplates. Large disc bulge is present. The thecal sac measures 6 mm. Paravertebral enhancement is present. A paravertebral/epidural abscess not visualized. Moderate anterior subluxation L4 on L5. Ligamentum flavum and facet hypertrophy. Disc bulge. Thecal s ac 9 mm. Thecal sac mid aspect L5 equals 6 mm. Mild anterior subluxation L5 on S1. Spondylosis involves the remainder of the lumbar spine. IMPRESSION: Abnormal signal L2 and L3 vertebral bodies with abnormal enhancement and destructive changes involvin g the vertebral endplates consistent with osteomyelitis. A paravertebral/epidural abscess is not seen.
[2024-08-26] MEDS ORDERED: NA CHLORIDE 0.9% 100 ML ONE (18:12)
[2024-08-26] MEDS ORDERED: PIPERACIL/TAZO 3.375 GM VIAL IV ONE (18:13)
[2024-08-26 21:13] VITALS: TEMP 98
[2024-08-26 21:19] VITALS: BP 153/85; O2SAT 99
== END 2024-08-26 20:59 | disposition short-term general hospital (02) ==
LOC: ER 11:20
DX: K83.1 Obstruction of bile duct (principal); M46.26 Osteomyelitis of vertebra, lumbar region; M46.46 Discitis, unspecified, lumbar region; E87.6 Hypokalemia; Z72.0 Tobacco use
CPT/HCPCS: 96365; 96361; 87040 ×2; 85025; 81001; 36415; 80053; 74176; 74181; 72158; 96375; 99285; A9577; J2543; J3010; J1100; J2405; J7040